=== PATIENT | male | born 1985 | race Caucasian/White ===

== ENCOUNTER 2022-01-29 13:27 | Outpatient (CLI) | payer MEDICARE, SELFPAY ==
--- NOTE | 2022-01-29 14:13 | XR_ITS ---
WS: [id number] Exam: XR lumbar spine min 4V [id number] Date/Time of Exam: 01/29/2022 2:13 PM Reason For Exam: M54.16 - Radiculopathy, lumbar region There is a pars interarticularis defect of L4 with grade 1 spondylolisthesis of L4 on L5. There is ap proximately 8 mm forward movement of L4. Degenerative disc thinning at L4-5. The remaining discs are preserved. Remaining posterior elements are intact. No acute fracture seen. XR/XR lumbar spine min 4V [id number] IMPRESSION: 1. Grade 1 spondylolisthesis of L4 on L5 secondary to L4 pars defect. 2. Early degenerative thinning of the L4-5 disc. 3. The remaining aspects of the lumbar spine are unremarkable.
== END 2022-01-29 13:28 | disposition home or self-care (01) ==
LOC: RAD 13:39
PROVIDERS: PCP Family Medicine; Visit Provider Anesthesiology Pain Medicine
DX: M54.16 Radiculopathy, lumbar region (principal); M43.16 Spondylolisthesis, lumbar region
CPT/HCPCS: 72110

== ENCOUNTER 2022-05-31 13:22 | Emergency (ER) | payer MEDICARE, SELFPAY ==
[2022-05-31] VITALS (11 sets, daily range): BP systolic 134–163; BP diastolic 80–107; PULSE 46–78; RESP 13–23; O2SAT 92–100
--- NOTE | 2022-05-31 13:23 | XRR_ITS ---
PROCEDURE INFORMATION: Exam: XR Chest Exam date and time: 05/31/2022 1:28 PM Age: 36 years old Clinical indication: Injury or trauma; Fall; Blunt trauma (contusions or hematomas); Additional info: Cp TECHNIQUE: Imaging protocol: Radiologic exam of the chest. Views: 1 view. COMPARISON: MR shoulder RT wo con* [id number] 01/23/2022 7:37 AM FINDINGS: Lungs: Lungs are clear. Pleural spaces: There is no pleural effusion or pneumothorax. Heart/Mediastinum: The cardiac silhouette is within normal limits of size given AP technique. Bones/joints: Bones are unremarkable. XR/XR chest 1V portable [id number] IMPRESSION: No acute findings.
--- NOTE | 2022-05-31 13:24 | ECG_ITS ---
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
--- NOTE | 2022-05-31 13:27 | CTR_ITS ---
PROCEDURE INFORMATION: Exam: CT Head Without Contrast Exam date and time: 05/31/2022 1:38 PM Age: 36 years old Clinical indication: Injury or trauma; Fall; Blunt trauma (contusions or hematomas) TECHNIQUE: Imaging protocol: Computed tomography of the head without contrast. Axial, coronal and sagittal reformatted images were created and reviewed. Radiation optimization: All CT scans at this facility use at least one of these dose optimization techniques: automated exposure control; mA and/or kV adjustment per patient size (includes targeted exams where dose is matched to clinical indication); or iterative reconstruction. REPORTING DATA: Count of CT and Cardiac NM exams in prior 12 months: This patient has received [address] and 0 known cardiac nuclear medicine studies in the 12 months prior to the current study. COMPARISON: No relevant prior studies available. RADIATION DOSE METRICS: Total DLP (mGy-cm): 1355.1 FINDINGS: Brain: No CT evidence of acute intracranial hemorrhage or acute territorial infarction. No significant mass effect or midline shift. Basal cisterns patent. Cerebral ventricles: Normal in size and configuration. Paranasal sinuses: Unremarkable. No fluid levels. Mastoid air cells: Minimal opacification of the mastoid air cells. Bones/joints: Mild ethmoid, maxillary and inferior frontal sinus sinus mucosal thickening. No air-fluid levels. Soft tissues: Grossly unremarkable. CT/CT head wo con* [id number] IMPRESSION: 1. No CT evidence of acute intracranial pathology. 2. Additional findings, as above.
--- NOTE | 2022-05-31 13:27 | CTR_ITS ---
PROCEDURE INFORMATION: Exam: CT Cervical Spine Without Contrast Exam date and time: 05/31/2022 1:38 PM Age: 36 years old Clinical indication: Injury or trauma; Fall; Blunt trauma; Injury date: 05/31/2022; Injury details: Syncopeal episode today TECHNIQUE: Imaging protocol: Computed tomography of the cervical spine without contrast. Axial, coronal and sagittal reformatted images were created and reviewed. Radiation optimization: All CT scans at this facility use at least one of these dose optimization techniques: automated exposure control; mA and/or kV adjustment per patient size (includes targeted exams where dose is matched to clinical indication); or iterative reconstruction. REPORTING DATA: Count of CT and Cardiac NM exams in prior 12 months: This patient has received [address] and 0 known cardiac nuclear medicine studies in the 12 months prior to the current study. COMPARISON: MR shoulder RT wo con* [id number] 01/23/2022 7:37 AM RADIATION DOSE METRICS: Total DLP (mGy-cm): 282.8 FINDINGS: Bones/joints: Straightening of the normal cervical lordosis. No CT evidence of acute fracture, dislocation or subluxation. Alignment anatomic. Minimal dextroscoliosis. Vertebral body heights maintained. Lungs: 5 mm pleural based right upper lobe nodular density, of doubtful clinical significance. Soft tissues: Grossly unremarkable. CT/CT cervical spin wo con* [id number] IMPRESSION: 1. No CT evidence of acute cervical spine traumatic injury. 2. Additional findings, as above.
--- NOTE | 2022-05-31 13:31 | W.ED.CHESTPA ---
HPI - Chest Pain General: Chief Complaint: Chest Pain Stated Complaint: CHEST PAIN Time Seen by Provider: 05/31/22 13:23 Source: patient and EMS Mode of arrival: EMS Limitations: no limitations History of Present Illness: 36-year-old male states that roughly 2 hours ago he started to feel anxious and was having chest pain he had hyperventilated and then had a syncopal event that was witnessed by family he does complain of some neck pain along with headache and he did hit his head he is in a c-collar currently is brought in by EMS states his symptoms of complete resolved he has no chest pain currently he feels much improved no vomiting no shortness of breath currently. Associated symptoms: Reports syncope; Deny abdominal pain, dyspnea, fever(s), nausea or vomiting Review of Systems Const: Denies: fever(s), chills, body aches or change in appetite Eyes: Denies: blurry vision or eye discomfort ENMT: Denies: throat pain or dental pain Card: Reports: chest pain and syncope Resp: Denies: dyspnea GI: Denies: abdominal pain, nausea, vomiting or diarrhea : Denies: dysuria Musc: Reports: neck pain Skin/Breast: Denies: rash Neuro: Reports: headache(s) Psych: Reports: anxiety Logan/Lymph: Denies: easy bruising All/Imm: Denies: urticaria PFSH ED PFSH: Medical History Lumbar disc disease with radiculopathy Social History Smoking and tobacco status: former smoker Quit status (tobacco): has quit using tobacco Household members: significant other Physical Exam Const: COMMON NORMALS: no acute distress, patient oriented x3 and healthy appearing HENMT: COMMON NORMALS: normocephalic; head/scalp not atraumatic (contusion to right side of head) HEAD & SCALP: normocephalic; not atraumatic (contusion to right side of head) Eye: COMMON NORMALS: Equal, round and reactive pupils present and EOMs intact bilaterally PUPIL: Yes Equal, round and reactive pupils present Neck/C-Spine: OTHER: in c collar Chest: COMMONS NORMALS: normal inspection of the chest and normal palpation of entire chest wall Resp: COMMON NORMALS: normal respiratory effort, No retractions, No use of accessory muscles and clear to auscultation bilaterally AUSCULTATION: clear to auscultation bilaterally Cardio: COMMON NORMALS: regular rate, regular rhythm and No murmurs present (Cardio) RATE: regular rate RHYTHM: regular rhythm GI: COMMON NORMALS: Normal to inspection, nondistended, normoactive bowel sounds present, Soft to palpation, non-tender and no masses PALPATION: Yes Soft to palpation Extremity: COMMON NORMALS: normal to inspection and full ROM Neuro: COMMON NORMALS: patient oriented x3, moves all extremities and no focal motor deficits Psych: COMMON NORMALS: mental status grossly normal, Normal thought process present and cooperative THOUGHT PROCESS: Normal thought process present Skin: COMMON NORMALS: no rashes or lesions noted and no wounds GENERAL SKIN EXAM: no rashes or lesions noted Course Vital Signs: Vital signs: Vital Signs Pulse Rate 58 L 05/31/22 13:29 Respiratory Rate 22 H 05/31/22 14:44 Blood Pressure 163/95 05/31/22 13:29 Pulse Oximetry 100 05/31/22 14:44 Oxygen Delivery Me thod 05/31/22 13:29 MDM - Chest Pain Medical Decision Making Patient presents here with chest pains atypical in nature he also has syncopal episode from what appears to be hyperventilation during a panic attack he feels improved here troponins and blood work are all normal he is to follow-up with his PCP and return if worsening he understands and agrees to plan. Lab Data 05/31/22 13:30 05/31/22 13:30 Radiology Impressions Chest X-Ray 05/31/22 13:23 IMPRESSION: No acute findings. Cervical Spine CT 05/31/22 13:27 IMPRESSION: 1. No CT evidence of acute cervical spine traumatic injury. 2. Additional findings, as above. Head CT 05/31/22 13:27 IMPRESSION: 1. No CT evidence of acute intracranial pathology. 2. Additional findings, as above. Laboratory Results WBC 16.2 10^3/uL (4.0-10.0) H 05/31/22 13:30 RBC 5.39 10^6/uL (4.1-5.3) H 05/31/22 13:30 Hgb 16.1 g/dL (11.7-16.6) 05/31/22 13:30 Hct 49.4 % (42.0-52.0) 05/31/22 13:30 MCV 91.7 fl (80-94) 05/31/22 13:30 MCH 29.9 pg (28.0-34.0) 05/31/22 13:30 MCHC 32.6 g/dL (30.0-36.0) 05/31/22 13:30 RDW 12.8 % (12.1-15.1) 05/31/22 13:30 Plt Count 276 10^3/cmm (130-400) 05/31/22 13:30 MPV 10.1 fL (7.4-10.4) 05/31/22 13:30 Neut % (Auto) 75.5 % 05/31/22 13:30 Lymph % (Auto) 17.9 % 05/31/22 13:30 [place] % (Auto) 3.9 % 05/31/22 13:30 Eos % (Auto) 1.7 % 05/31/22 13:30 Baso % (Auto) 0.6 % 05/31/22 13:30 Neut # (Auto) 12.25 10^3/uL (1.8-7.7) H 05/31/22 13:30 Lymph # (Auto) 2.9 10^3/uL (0.8-4.8) 05/31/22 13:30 [place] # (Auto) 0.6 10^3/uL (0.2-0.9) 05/31/22 13:30 Eos # (Auto) 0.3 10^3/uL (0.0-0.8) 05/31/22 13:30 Baso # (Auto) 0.1 10^3/uL (0.0-0.1) 05/31/22 13:30 Nucleated RBC % (auto) 0 % 05/31/22 13:30 Nucleated RBCs # 0.0 /100WBC 05/31/22 13:30 PT 12.80 SECONDS (12.1-14.9) 05/31/22 13:30 INR 0.94 (0.8-1.2) 05/31/22 13:30 Sodium 142 mmol/L (136-145) 05/31/22 13:30 Potassium 4.5 mmol/L (3.5-5.1) 05/31/22 13:30 Chloride 109 mmol/L (98-107) H 05/31/22 13:30 Carbon Dioxide 23 mmol/L (22-29) 05/31/22 13:30 Anion Gap 14.5 (5-19) 05/31/22 13:30 BUN 13 mg/dL (6-20) 05/31/22 13:30 Creatinine 1.0 mg/dL (0.7-1.2) 05/31/22 13:30 GFR Calculation 85.0 mL/min (90-130) L 05/31/22 13:30 Glucose 101 mg/dL (65-115) 05/31/22 13:30 Calculated Osmolality 294 mOsm/kg (285-295) 05/31/22 13:30 Calcium 12.4 mg/dL (8.5-10.5) H 05/31/22 13:30 Total Bilirubin 0.4 mg/dL (0.15-1.2) 05/31/22 13:30 AST 15 U/L (0-40) 05/31/22 13:30 ALT 24 U/L (0-41) 05/31/22 13:30 Alkaline Phosphatase 81 U/L (40-130) 05/31/22 13:30 Troponin T Baseline 6 ng/L (0-15) 05/31/22 13:30 Troponin T 120 Minute 6.00 ng/L (0-15) 05/31/22 15:20 Delta Troponin T 0 ABS# (0-10) 05/31/22 15:20 Total Protein 6.7 g/dL (6.6-8.7) 05/31/22 13:30 Albumin 4.2 g/dL (3.5-5.2) 05/31/22 13:30 Globulin 2.5 g/dL (1.3-4.6) 05/31/22 13:30 Lipase 30 U/L (13-60) 05/31/22 15:20 EKG Data EKG 1: I personally reviewed and interpreted this EKG as follows: EKG interpretation date: 05/31/22 EKG interpretation time: 13:34 Interpretation: sinus micheal hr [address] or t wave abnormalities qrs 93 qtc 364 EKG 2: I personally reviewed and interpreted this EKG as follows: EKG interpretation date: 05/31/22 EKG interpretation time: 14:50 Interpretation: sinus micheal hr [address] or t wave abnormalities qrs 89 qtc 379 Discharge Plan Discharge Patient Disposition: Home Clinical Impression: Chest pain, Syncope Condition: Stable Prescriptions: New Naprosyn 500 mg tablet 500 mg PO BID PRN (Reason: pain) Qty: 20 0RF No Action hydrocodone-acetaminophen 5-325 mg tablet 1 tab PO BID PRN (Reason: Pain) azithromycin 250 mg tablet 250 mg PO .TAPER Rx Instructions: 2 tablets day 1 then 1 tablet on days 2-5 prednisone 20 mg tablet 40 mg PO DAILY Discharge Orders: Discharge ED (Routine); Ordered 05/31/22 Ordered By: Carina De Leon Referrals: Jose Brown [Primary Care Provider] - 1-3 days Discharge Diet: Advance as tolerated Discharge Activity: Resume usual activity Patient Instructions: Chest Pain (ED), Syncope (ED) Stand Alone Forms: Work/School Release Coding Level of Care Code ED Hand I Cutter for Juan Jose Lima
[2022-05-31 13:47] LABS: Basophils # 0.1 10^3/uL (0.0-0.1); Basophils % 0.6 %; Eosinophils # 0.3 10^3/uL (0.0-0.8); Eosinophils % 1.7 %; Hematocrit 49.4 % (42.0-52.0); Hemoglobin 16.1 g/dL (11.7-16.6); Lymphocytes # 2.9 10^3/uL (0.8-4.8); Lymphocytes % 17.9 %; Mean Corpuscular HGB Conc 32.6 g/dL (30.0-36.0); Mean Corpuscular Hemoglobin 29.9 pg (28.0-34.0); Mean Corpuscular Volume 91.7 fl (80-94); Mean Platelet Volume 10.1 fL (7.4-10.4); Monocytes # 0.6 10^3/uL (0.2-0.9); Monocytes % 3.9 %; Neutrophils # 12.25 10^3/uL (1.8-7.7); Neutrophils % 75.5 %; Nucleated Red Blood Cells % 0 %; Platelet Count 276 10^3/cmm (130-400); Red Blood Count 5.39 10^6/uL (4.1-5.3); Red Cell Distribution Width 12.8 % (12.1-15.1); White Blood Count 16.2 10^3/uL (4.0-10.0)
[2022-05-31 13:59] LABS: INR 0.94 (0.8-1.2)
[2022-05-31 14:06] LABS: Alanine Aminotransferase 24 U/L (0-41); Albumin Level 4.2 g/dL (3.5-5.2); Alkaline Phosphatase 81 U/L (40-130); Anion Gap 14.5 (5-19); Aspartate Amino Transferase 15 U/L (0-40); Blood Urea Nitrogen 13 mg/dL (6-20); Calcium 12.4 mg/dL (8.5-10.5); Carbon Dioxide 23 mmol/L (22-29); Chloride 109 mmol/L (98-107); Creatinine Clr Calc Pharmacy 113.5628; Globulin 2.5 g/dL (1.3-4.6); Glucose 101 mg/dL (65-115); Osmolality Calculated 294 mOsm/kg (285-295); Potassium 4.5 mmol/L (3.5-5.1); Sodium 142 mmol/L (136-145); Total Bilirubin 0.4 mg/dL (0.15-1.2); Total Protein 6.7 g/dL (6.6-8.7)
[2022-05-31 14:07] LABS: Troponin(5th) Baseline 6 ng/L (0-15)
[2022-05-31] MEDS: ondansetron 2 mg/ML SDV 2 mL 4 MG IVP (14:44)
[2022-05-31] MEDS: morphine 4 mg/mL SDV 1 mL IVP (14:44)
--- NOTE | 2022-05-31 14:50 | ECG_ITS ---
[facility] Test Date: 2022-05-31 Pat Name: Charlie Hawkins Department: Room: Gender: Male Manager Of Pharmacy: : 1985 Requested By: Carina De Leon Order Number: [id number] Reading MD: PARAG CABRALES Measurements Intervals [place] Rate: 55 P: 54 AR: 173 QRS: 3 QRSD: 89 T: 8 QT: 390 QTc: 375 Interpretive Statements SINUS BRADYCARDIA WITH SINUS ARRHYTHMIA Compared to ECG 05/31/2022 13:34:31 No significant changes Electronically Signed On 06-01-2022 3:08:13 CDT by PARAG CABRALES [id number]
--- NOTE | 2022-05-31 14:54 | PC.NURSE ---
PT PLACED ON CONTINUOUS SPO2, NIBP, AND CM.
[2022-05-31 16:02] LABS: Troponin 5 2HR Delta 0 ABS# (0-10)
[2022-05-31 16:34] LABS: Lipase 30 U/L (13-60)
[2022-05-31] MEDS: HYDROcodone-acetaminophen 5-325 mg Tablet 1 TAB PO (16:43)
== END 2022-05-31 16:55 | disposition home or self-care (01) ==
PROVIDERS: Emergency Provider Emergency Medicine; PCP Family Medicine
DX: R07.9 Chest pain, unspecified (principal); R55 Syncope and collapse; Z87.891 Personal history of nicotine dependence
CPT/HCPCS: 36415; 70450; 71045; 72125; 80053; 83690; 84484; 85025; 85610; 93005; 96374; 96375; 99285; J2270; J2405

== ENCOUNTER 2022-07-17 11:35 | Outpatient (CLI) | payer MEDICARE, SELFPAY ==
[2022-07-17 11:50] VITALS: BMI 29.9
--- NOTE | 2022-07-17 11:54 | ECG_ITS ---
[facility] Test Date: 2022-07-17 Pat Name: Charlie Hawkins Department: Room: Gender: Male Siphoner: : 1985 Requested By: Jose Brown Order Number: [id number] Hale MD: Woodrow Machuca M.D. Interpretive Statements NAME OF STUDY: TREADMILL STRESS TEST INDICATION: [Chest Pain] EXERCISE DATA: The patient was exercised by Hero protocol. Baseline heart rate was 63 beats per minute. Baseline blood pressure was 128/70 millimeters of mercury. Target heart rate was 157 beats per minute. Maximum heart rate achieved was 156, which was 99% of the target heart rate. Maximum blood pressure was 183/116millimeters of mercury. Total exercise time was 9 minutes 30 seconds. Maximum METs achieved was 13.5. The reason for ending the test was completion of protocol. The patient complained of shortness of breath during the stress test, which then resolved at the end of the test. ELECTROCARDIOGRAM: BASELINE: Showed sinus rhythm, normal axis, no significant ST-T changes at the baseline noted. [] EXERCISE: At the peak exercise level, [] No significant ST-T changes suggestive of ischemia noted. [] RECOVERY: During the recovery period, heart rate dropped appropriately. No significant ST-T changes in the recovery suggestive of ischemia noted. [] CONCLUSION: 1. Exercise capacity excellent 2. Heart rate response was appropriate. Maximum heart rate was only 1 beat below target heart rate however patient has excellent exercise capacity. Slight reduction in sensitivity of the test because of heart rate. 3. Blood pressure response was appropriate. 4. Symptoms not suggestive of ischemia. 5. Overall stress test is negative for ischemia. Maximum heart rate achieved was 1 beat below target heart rate. This may reduce sensitivity of the test. Patient has excellent exercise capacity. Electronically Signed On 08-01-2022 21:46:23 CDT by Woodrow Machuca M.D. [id number]
[2022-07-17 13:05] VITALS: BP 152/88; PULSE 92
== END 2022-07-17 11:36 | disposition home or self-care (01) ==
LOC: CDL 11:36
PROVIDERS: PCP Family Medicine; Visit Provider Family Medicine
DX: R07.9 Chest pain, unspecified (principal); Z82.49 Family history of ischemic heart disease and other diseases of the circulatory system
CPT/HCPCS: 93017

== ENCOUNTER → 2022-07-22 15:20 | Outpatient (BNVA) | payer MEDICARE, SELFPAY | PROVIDERS: PCP Family Medicine; Referring Provider Nurse Practitioner Family; Visit Provider Internal Medicine | DX: E21.0 Primary hyperparathyroidism (principal); N20.0 Calculus of kidney; D72.820 Lymphocytosis (symptomatic); M51.16 Intervertebral disc disorders with radiculopathy, lumbar region; M47.816 Spondylosis without myelopathy or radiculopathy, lumbar region | CPT/HCPCS: 80053; 82310; 83970; 99204 ==

== ENCOUNTER → 2022-10-07 15:09 | Outpatient (BNVA) | payer MEDICARE, SELFPAY | PROVIDERS: PCP Family Medicine; Visit Provider Internal Medicine | DX: R07.9 Chest pain, unspecified (principal); E21.0 Primary hyperparathyroidism; I10 Essential (primary) hypertension; N20.0 Calculus of kidney; I21.9 Acute myocardial infarction, unspecified; Z87.891 Personal history of nicotine dependence; R00.1 Bradycardia, unspecified | CPT/HCPCS: 36415; 80048; 82310; 83970; 85025; 85610; 93005; 99204; 99215 ==

== ENCOUNTER 2022-10-08 10:00 | Outpatient (CLI) | payer MEDICARE, SELFPAY ==
--- NOTE | 2022-10-08 09:51 | NM_ITS ---
WS: [id number] EXAMINATION: NM parathyroid [id number] ORDER DATE: 10/08/2022 9:51 AM COMPARISON: CT cervical May 31, 2022 HISTORY: hyperparathyroid TECHNIQUE: Parathyroid scintigraphy with 19.4 mCi of technetium 99m administered. AP and oblique views obtained with and without chin and suprasternal notch markers. Initial and 2 hour delayed imagi ng acquired. FINDINGS: Multinodular LEFT inferior thyroid seen on the prior CT with calcifications. Associated nodular radio tracer uptake in the LEFT inferior thyroid today. Normal submandibular uptake. Normal thyroid washout on the delayed imaging. No evidence of retained radiotracer on the delayed imaging to indicate parathyroid adenoma. NM/NM parathyroid [id number] IMPRESSION: No evidence of parathyroid adenoma.
== END 2022-10-08 10:01 | disposition home or self-care (01) ==
PROVIDERS: PCP Family Medicine; Visit Provider Internal Medicine
DX: E21.0 Primary hyperparathyroidism (principal)
CPT/HCPCS: 78070; A9500

== ENCOUNTER 2022-10-21 09:07 | Outpatient (CLI) | payer MEDICARE, SELFPAY ==
[2022-10-21] VITALS (14 sets, daily range): BP systolic 115–135; BP diastolic 52–95; PULSE 40–96; RESP 12–18; TEMP 37; O2SAT 96–100; BMI 31.0
--- NOTE | 2022-10-21 09:00 | XACV_ITS ---
Ht: 173 cm Wt: 93 kg BSA: 2.13 m2 Gender: Male : 1985 Any Known Allergies: Other Exam Priority: Routine Procedure(s): Procedure Description: Diagnostic procedure Procedure Description: Left Heart Catheterization Procedure Description: Left ventriculography Procedure Description: Coronary Angiography Diagnostic Cath Status: Elective Diagnostic Findings * No significant disease noted in the Left Main, Left Anterior Descending, Right, or Circumflex coronary arteries. 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 * Coronary angiography shows right dominance. Conclusions 1. No significant disease noted in the Left Main, Left Anterior Descending, Right, or Circumflex coronary arteries. 2. Mid LAD bridge. 3. Normal left ventricular systolic function. Ejection fraction of 60%. Recommendations * Aggressive risk factor modification. * Beta wilver as tolerated. * Outpatient cardiology follow up in 4 weeks. Diagnostic RX Recommendation: medical therapy and/or counseling Ventriculography Ejection Fraction: 60.0 % Pressures Phase:Rest AO : 104 / 104 ( 89 ) @ 11:43:00 AM 118 / 92 ( 98 ) @ 11:46:00 AM 114 / 55 ( 81 ) @ 11:50:00 AM 114 / 55 ( 80 ) @ 11:50:00 AM LV : 142 / -16 / 11 @ 11:50:00 AM 133 / -34 / -7 @ 11:50:00 AM Valves Phase:DefaultPhase AV : 5.0 @ 11:12:25 AM AV Mean Gradient: 15.0 @ 11:12:25 AM 15.0 @ 11:12:25 AM Clinical Evaluation EBL: 5mL-10mL Procedural Details Pre-Procedure Time Out. Identified patient by full name and date of as verbalized by the patient/guarantor. Does the consent match the physician's order: Yes. Accurate & Complete Informed Consent: Yes. Inpatient/Outpatient History & Physical on Chart: Yes. If H&P is completed, is and addenduem needed: No; If yes, is the addendum complete: N/A. Visualize and Verify Site with Patient/Guarantor: N/A. Relevant Radiology Images available: No. Pre-op teaching completed and patient verbalized understanding. The risks, benefits, and alternatives of sedation and/or procedure were discussed by physician. The patient agrees to continue. Procedure started. [facility] Clinical Fraility Score: 2: Well. Art Psychotherapist Or Therapist Indications: Worsening Angina. Chest Pain Symptom Assessment: Typical Angina Symptoms. Cardiovascular Instability: No. Correct patient, site and procedure confirmed by cath team. PERRLA. Strong, equal hand strip machine tender bilaterally. Lungs clear x 5 lobes. IV Site on Arrival: 20 gauge in the right anticubital. IV Fluids: 0.9% NaCl at KVO. 0 mL infused prior to propagator laborer. Pre Procedural Pulses: bilateral dorsalis pedis was 3+. Pre Procedural Pulses: bilateral posterior tibial was 3+. Pre Procedural Pulses: bilateral radial was 3+. Oxygen started at 2liters/min via nasal canula. right groin was prepped with chloroprep then draped in the usual sterile fashion. right radial was prepped with chloroprep then draped in the usual sterile fashion. Baseline sample Acquired. HR: 47 BPM. Physician arrived. Equipment: 6F - Radial. Cardiac Cath Pack. ACIST Manifold Kit Model BT 2000. Heparinized Saline (2 units/mL), 1000 mL bag. Physician scrubbed in. Immediate Pre-Procedure Time Out. Correct Patient: Yes; Correct Procedure: Yes; Correct Site: Yes; Correct Patient Position: Yes; Correct Supplies: Yes; Dried Flammable Prep: Yes; Blood Products Available: N/A;. Lidocaine 1% infiltrated to the right radial. Arterial access obtained. Lidocaine 1% infiltrated to the right radial. Attempt to place 6 fr sheath in right radial artery. Unable to advance sheath into radial artery. Wire, needle, and sheath removed. Manual pressure was held as needed to stop the bleeding. TR band placed. Hemostasis obtained. Lidocaine 1% infiltrated to the right groin. Arterial access obtained with micropuncture set. Lidocaine 1% infiltrated to the right groin. A 5 moldovan JL4 catheter in over wire. Multiple views taken of left coronary artery. Catheter removed over the exchange wire. A 5 moldovan JR4 catheter in over wire. Multiple views taken of right coronary artery. Catheter out. EDP Sample taken: LV 142/-17,11; HR: 66 BPM; SpO2: 95%. LV gram performed in SOUZA @ 10 mL/second for a total of 30 mL. EDP Sample taken: LV 133/-35,-8; HR: 75 BPM; SpO2: 92%. Pullback taken: LV Off; AO 114/55(81); Mean: 15mmHg, Peak to Peak: 5mmHg, SEP: 55sec/min; HR: 68 BPM; SpO2: 93%. Catheter out. A Right femoral angiogram was performed to determine safe placement of closure device. Physician scrubbed out. Sheath(s) removed and manual pressure held until hemostasis was achieved. Sterile 4x4 and Op-site applied to the puncture site. No oozing or hematoma noted. Post sheath removal instructions were given and the patient verbalized understanding. A Manual Compression was successful obtaining hemostatsis at the Right Femoral artery insertion site. Post Procedure: Pulses reassessed and unchanged. PERRLA. Strong, equal hand strip machine tender bilaterally. No VTE prophylaxis required. Medication's Wasted: Lidocaine 1% = 1 mL. Medication's Wasted: Heparin = 1000 units. Medication's Wasted: Nitro = 50 mg. Total IV fluids: 36 mL. Contrast type used: Omnipaque 300 mgI/mL, 500 mL bottle. Post-op diagnosis: non obstructive CAD, LAD myocardial bridge. Complications: none. Estimated blood loss: 5mL-10mL. Responsiveness - Normal response to verbal stimuli; alert and oriented, PERRLA. Airway - Unaffected, no intervention required; spontaneous ventilation. Circulation: W/N/L, pulses unchanged. Nausea/Vomiting: No. Procedure completed. Patient transferred by bed to 1st floor. Vital chart was stopped. Access Site Site: Right Femoral artery Sheath Size: 6 Fr Hemostasis Method: Manual Compression Hemostasis Success: Successful Procedure Medications Start: 10:22 AM Stop: 10:22 AM Medication: Versed Amount: 1 mg Route: I.V. Start: 10: AM Stop: : AM Medication: Fentanyl Amount: 50 mcg Route: I.V. Start: 10: AM Stop: : AM Medication: Versed Amount: 1 mg Route: I.V. Start: 10: AM Stop: : AM Medication: Fentanyl Amount: 50 mcg Route: I.V. Start: 10: AM Stop: : AM Medication: Versed Amount: 1 mg Route: I.V. Start: 10:42 AM Stop: 10:42 AM Medication: Versed Amount: 1 mg Route: I.V. I, the attending physician, have reviewed and verified all procedure medications. Yes, all medications given per verbal order History/Risk Factors Hypertension: No Dyslipidemia: No Peripheral Arterial Disease (PAD): No Myocardial Infarction (KS): No Obesity: No Renal Disease: No Tobacco Use: Former Prior Interventions PCI: No CABG: No Valve Surgery: No Report Signatures Finalized by Woodrow Machuca MD on 10/21/2022 11:37 AM
[2022-10-21] MEDS: aspirin 325 mg Tablet PO (09:49)
[2022-10-21] MEDS: diphenhydrAMINE 50 mg Capsule PO (09:49)
--- NOTE | 2022-10-21 10:20 | P.HPUD_ITS ---
Surgery/Procedure H&P Update DATE OF PROCEDURE: October 21, 2022 DATE H&P PERFORMED: 10/07/22 H&P UPDATE INFORMATION: I have reviewed H&P completed within last 30 days, I have examined patient prior to procedure and No changes to prior documentation PREOP DIAGNOSIS: Worsening angina PRIMARY INDICATION FOR PROCEDURE: Worsening angina PLANNED PROCEDURE: Operation Date: 10/21/22 10:00 Proposed Procedures p [facility] 10109,R94.39(Not Applicable) - Woodrow Machuca M.D Possible percutaneous coronary intervention PATIENT REASSESSED PRIOR TO SEDATION, WITH NO CHANGE NOTED: Yes PHYSICAL EXAM: alert, oriented x 3, clear to auscultation bilaterally and regular rate & rhythm AIRWAY EVAL/ANESTHESIA PLAN: normal airway, ASA III, Local Anesthesia, Risks, benefits & alternatives of sedation and/or procedure discussed and Patient agrees to continue as planned ADDITIONAL INFORMATION: Moderate sedation
[2022-10-21] MEDS: fentaNYL 50 mcg/mL INJ 2mL 12.5 MCG IVP (13:59)
[2022-10-21] MEDS: nitroglycerin 0.4 mg sublingual Tablet (16:06)
== END 2022-10-21 17:02 | disposition home or self-care (01) ==
LOC: CCL 09:07 → CSU 11:57
PROVIDERS: PCP Family Medicine; Visit Provider Internal Medicine
DX: I20.9 Angina pectoris, unspecified (principal); R94.39 Abnormal result of other cardiovascular function study; Z87.891 Personal history of nicotine dependence
CPT/HCPCS: 36415; 93458; 96361; 96365; 99152; 99153; C1769; C1887; C1894; J1644; J2250; J3010; J3490; J7030; Q0163; Q9967

== ENCOUNTER 2022-10-31 15:24 | Emergency (ER) | payer MEDICARE, SELFPAY ==
[2022-10-31] VITALS (11 sets, daily range): BP systolic 138–175; BP diastolic 60–91; PULSE 42–71; RESP 11–17; O2SAT 96–99
--- NOTE | 2022-10-31 15:30 | XRR_ITS ---
PROCEDURE INFORMATION: Exam: XR Chest Exam date and time: 10/31/2022 3:39 PM Age: 37 years old Clinical indication: Pain; Chest pressure; Additional info: Chest pain TECHNIQUE: Imaging protocol: Radiologic exam of the chest. Views: 1 view. COMPARISON: CR XR chest 1V portable [id number] 05/31/2022 1:28 PM FINDINGS: Lungs: Unremarkable. No consolidation. Pleural spaces: Unremarkable. No pleural effusion. No pneumothorax. Heart/Mediastinum: Unremarkable. No cardiomegaly. Bones/joints: Unremarkable. XR/XR chest 1V portable [id number] IMPRESSION: No acute findings.
--- NOTE | 2022-10-31 15:32 | ECG_ITS ---
[facility] Test Date: 2022-10-31 Pat Name: Charlie Hawkins Department: Room: Gender: Male Med Care Manager: : 1985 Requested By: Cristian Dooley Order Number: [id number] Alexia MD: Jessica Crawford M.D. Measurements Intervals [place] Rate: 53 P: 55 [place]: 151 QRS: 4 QRSD: 91 T: 71 QT: 382 QTc: 361 Interpretive Statements SINUS BRADYCARDIA NONSPECIFIC T-WAVE ABNORMALITY Compared to ECG 10/07/2022 15:18:41 T-wave abnormality now present Electronically Signed On 10-31-2022 23:25:46 CDT by Jessica Crawford M.D. [id number]
--- NOTE | 2022-10-31 15:35 | W.ED.CHESTPA ---
Documented by User: Cristian Dooley 10/31/22 17:41 HPI - Chest Pain General: Chief Complaint: Chest Pain Stated Complaint: CHEST PAIN Time Seen by Provider: 10/31/22 15:25 History of Present Illness: 37-year-old male presents emergency department chief complaint of having midsternal chest pain and palpitations that started prior to arrival patient presents from the local senior care apparently the patient recently had a cardiac catheterization at our facility a couple of days ago which she was subsequently discharged back to senior care patient reports he had a heart attack at that time however all they found was a valve issue but no actual stenting or additional intervention was needed during the angiogram. Patient presents as he developed shortness of breath palpitations and reported chest pain just prior to arrival patient reports he did not provide anything for this prior to EMS arrival EMS provided him aspirin nitro. Patient presents to the ER for further assessment and management. Associated symptoms: Reports dyspnea and palpitations; Deny abdominal pain, fever(s), nausea or vomiting Review of Systems General: Reports: 10 or more systems reviewed and unremarkable except in HPI and below Const: Denies: fever(s), chills, fatigue or malaise Eyes: Denies: change in vision or blurry vision Card: Reports: chest pain and palpitations Resp: Reports: dyspnea; Denies: productive cough GI: Denies: abdominal pain, nausea or vomiting : Denies: flank pain Musc: Denies: extremity pain or extremity swelling Skin/Breast: Denies: rash or pruritus Neuro: Denies: headache(s) Psych: Denies: anxiety or depression Logan/Lymph: Denies: easy bleeding All/Imm: Denies: urticaria, throat swelling or facial swelling [facility] ED PFSH: Medical History Lumbar disc disease with radiculopathy Social History Smoking and tobacco status: former smoker Quit status (tobacco): has quit using tobacco Household members: significant other Physical Exam Const: COMMON NORMALS: patient oriented x3 and healthy appearing; apparent distress (Patient appears very anxious on exam appearing in acute distress currently ) HENMT: COMMON NORMALS: normocephalic and atraumatic HEAD & SCALP: normocephalic and atraumatic Eye: COMMON NORMALS: Equal, round and reactive pupils present and EOMs intact bilaterally PUPIL: Yes Equal, round and reactive pupils present Neck/C-Spine: COMMON NORMALS: full ROM, supple and no JVD Lymph: LYMPHATIC: no lymphadenopathy noted Chest: COMMONS NORMALS: normal inspection of the chest and normal palpation of entire chest wall Resp: COMMON NORMALS: normal respiratory effort (Hyperventilating on exam equal breath sounds appreciate bilaterally), No retractions and clear to auscultation bilaterally EFFORT & INSPECTION: Yes able to speak in complete sentences and Yes symmetric chest movement AUSCULTATION: clear to auscultation bilaterally Cardio: COMMON NORMALS: no JVD, regular rate and regular rhythm RATE: regular rate RHYTHM: regular rhythm OTHER: Regular rate and rhythm S1-S2 no murmurs appreciated GI: COMMON NORMALS: Normal to inspection, nondistended, normoactive bowel sounds present, Soft to palpation and non-tender INSPECTION: Yes normal to inspection PALPATION: Yes Soft to palpation : COMMON NORMALS: Yes no CVA tenderness BLADDER/KIDNEY EXAM: Yes no CVA tenderness Back/Pelvis: COMMON NORMALS: no CVA tenderness Extremity: COMMON NORMALS: normal to inspection and full ROM Neuro: COMMON NORMALS: patient oriented x3, CN's II-XII intact bilaterally, moves all extremities and no focal motor deficits Psych: COMMON NORMALS: mental status grossly normal, Normal thought process present, cooperative and normal affect THOUGHT PROCESS: Normal thought process present Skin: COMMON NORMALS: no rashes or lesions noted GENERAL SKIN EXAM: no rashes or lesions noted Course Vital Signs: Vital signs: Vital Signs Pulse Rate 52 L 10/31/22 19:56 Respiratory Rate 16 10/31/22 19:56 Blood Pressure 150/86 10/31/22 19:56 Pulse Oximetry 97 10/31/22 19:56 Oxygen Delivery Me thod Room Air 10/31/22 15:26 MDM - Chest Pain Medical Decision Making Due to patient's symptoms and condition will undergo a cardiac work-up and IV established nitro will be provided for pain control EKG appears unremarkable just revealing a nonspecific T wave abnormality with sinus bradycardia rate of 53 with no STEMI appreciated we will continue to follow and further investigate the patient's previous work-up recently. Discussed the patient's case with Dr. Bejarano repair manager that independently assessed patient's cardiac cath reporting patient is a clean cath at this time recommends as long as patient's cardiac troponins repeat are negative the patient can be successfully discharged home. Patient does remain in sinus bradycardia which appears to be possibly medication induced currently is chest pain-free will be providing the patient a single dose of glucagon as his heart rate lowest is gone and 39 bpm. We will continue to follow anticipate discharge home pending 2-hour troponin. This patient was signed out to Dr. Norman at 1800 anticipate discharge home Pending cardiac second troponin results. Lab Data 10/31/22 15:25 10/31/22 15:25 Radiology Impressions Chest X-Ray 10/31/22 15:30 IMPRESSION: No acute findings. Laboratory Results WBC 17.8 10^3/uL (4.0-10.0) H 10/31/22 15:25 RBC 6.21 10^6/uL (4.1-5.3) H 10/31/22 15:25 Hgb 19.2 g/dL (11.7-16.6) H 10/31/22 15:25 Hct 55.6 % (42.0-52.0) H 10/31/22 15:25 MCV 89.5 fl (80-94) 10/31/22 15:25 MCH 30.9 pg (28.0-34.0) 10/31/22 15:25 MCHC 34.5 g/dL (30.0-36.0) 10/31/22 15:25 RDW 12.5 % (12.1-15.1) 10/31/22 15:25 Plt Count 303 10^3/cmm (130-400) 10/31/22 15:25 MPV 10.8 fL (7.4-10.4) H 10/31/22 15:25 Neut % (Auto) 77.5 % 10/31/22 15:25 Lymph % (Auto) 16.6 % 10/31/22 15:25 Gonzales % (Auto) 4.6 % 10/31/22 15:25 Eos % (Auto) 0.6 % 10/31/22 15:25 Baso % (Auto) 0.4 % 10/31/22 15:25 Neut # (Auto) 13.81 10^3/uL (1.8-7.7) H 10/31/22 15:25 Lymph # (Auto) 3.0 10^3/uL (0.8-4.8) 10/31/22 15:25 Gonzales # (Auto) 0.8 10^3/uL (0.2-0.9) 10/31/22 15:25 Eos # (Auto) 0.1 10^3/uL (0.0-0.8) 10/31/22 15:25 Baso # (Auto) 0.1 10^3/uL (0.0-0.1) 10/31/22 15:25 Nucleated RBC % (auto) 0 % 10/31/22 15:25 Nucleated RBCs # 0.0 /100WBC 10/31/22 15:25 PT 12.70 SECONDS (12.1-14.9) 10/31/22 15:25 INR 0.93 (0.8-1.2) 10/31/22 15:25 APTT 28.9 SECONDS (23.9-36.7) 10/31/22 15:25 Sodium 139 mmol/L (136-145) 10/31/22 15:25 Potassium 4.6 mmol/L (3.5-5.1) 10/31/22 15:25 Chloride 102 mmol/L (98-107) 10/31/22 15:25 Carbon Dioxide 24 mmol/L (22-29) 10/31/22 15:25 Anion Gap 17.6 (5-19) 10/31/22 15:25 BUN 16 mg/dL (6-20) 10/31/22 15:25 Creatinine 1.2 mg/dL (0.7-1.2) 10/31/22 15:25 GFR Calculation 68.5 mL/min (90-130) L 10/31/22 15:25 Glucose 70 mg/dL (65-115) 10/31/22 15:25 Calculated Osmolality 288 mOsm/kg (285-295) 10/31/22 15:25 Calcium 13.6 mg/dL (8.5-10.5) H* 10/31/22 17:07 Total Bilirubin 0.8 mg/dL (0.15-1.2) 10/31/22 15:25 AST 18 U/L (0-40) 10/31/22 15:25 ALT 33 U/L (0-41) 10/31/22 15:25 Alkaline Phosphatase 92 U/L (40-130) 10/31/22 15:25 Troponin T Baseline 6 ng/L (0-15) 10/31/22 15:25 Troponin T 120 Minute 6.14 ng/L (0-15) 10/31/22 17:07 Delta Troponin T 0.14 ABS# (0-10) 10/31/22 17:07 NT-Pro-B Natriuret Pep 36 pg/mL (0-125) 10/31/22 15:25 Total Protein 7.6 g/dL (6.6-8.7) 10/31/22 15:25 Albumin 5.1 g/dL (3.5-5.2) 10/31/22 15:25 Globulin 2.5 g/dL (1.3-4.6) 10/31/22 15:25 Lipase 39 U/L (13-60) 10/31/22 15:25 Urine Color Dark yellow (Yellow) 10/31/22 16:53 Urine Appearance Clear (CLEAR) 10/31/22 16:53 Urine pH 6.5 (5-7) 10/31/22 16:53 Ur Specific [place] 1.015 (1.005-1.030) 10/31/22 16:53 Urine Protein Neg (Negative) 10/31/22 16:53 Urine Glucose (UA) Norm (Normal) 10/31/22 16:53 Urine Ketones 1+ (Negative) H 10/31/22 16:53 Urine Blood Neg (Negative) 10/31/22 16:53 Urine Nitrate Negative (Negative) 10/31/22 16:53 Urine Bilirubin Neg (Negative) 10/31/22 16:53 Urine Urobilinogen 1 mg/dL (Negative) H 10/31/22 16:53 Ur Leukocyte Esterase Negative (Negative) 10/31/22 16:53 Urine Opiates Screen Negative ng/mL (Negative) 10/31/22 16:53 Ur Barbiturates Screen Negative ng/mL (Negative) 10/31/22 16:53 Ur Phencyclidine Scrn Negative ng/mL (Negative) 10/31/22 16:53 Ur Amphetamines Screen Negative ng/mL (Negative) 10/31/22 16:53 U Benzodiazepines Scrn Negative ng/mL (Negative) 10/31/22 16:53 Urine Cocaine Screen Negative ng/mL (Negative) 10/31/22 16:53 U Marijuana (THC) Screen Positive ng/mL (Negative) H 10/31/22 16:53 Discharge Plan Discharge Patient Disposition: Home Clinical Impression: Chest pain, atypical, Bradycardia Condition: Stable Prescriptions: Discontinued metoprolol tartrate 25 mg tablet 12.5 mg PO BID Qty: 60 1RF No Action nitroglycerin 0.4 mg tablet, sublingual 0.4 mg sublingual Q5M PRN (Reason: chest pain) Qty: 30 0RF Rx Instructions: do not exceed 3 doses per episode cinacalcet 30 mg tablet 30 mg PO DAILY Qty: 90 0RF Rx Instructions: (pt states not started [facility] naproxen [Naprosyn] 500 mg tablet 500 mg PO BID PRN (Reason: pain) Qty: 20 0RF hydrocodone-acetaminophen 7.5-325 mg tablet 1 tab PO QID PRN (Reason: Pain) Discharge Orders: Discharge ED (Routine); Ordered 10/31/22 Ordered By: Ezequiel Norman Referrals: Woodrow Machuca M.D [Physician] - 4-7 days Jose Brown [Primary Care Provider] - Patient Instructions: Chest Pain (ED), Chest Pain (DC), Opioid Safety, Pain Management Activity Restrictions/Additional Instructions: Please further follow-up with your primary care doctor in 2 to 3 days please continue take your medications as prescribed, with the exception of metoprolol. Consider stopping this medication, as your heart rate was too low in the emergency department. And please return them in the interim if any of your symptoms persist or worsen. Follow-up with your chief operator lock tender as well. Coding Level of Care Code ED Director Of Partner Marketing for [facility] Fwd Documented by User: Ezequiel Norman, 11/01/22 00:15 HPI - Chest Pain General: Chief Complaint: Chest Pain Stated Complaint: CHEST PAIN Time Seen by Provider: 10/31/22 15:25 PFSH ED PFSH: Medical History Lumbar disc disease with radiculopathy Social History Smoking and tobacco status: former smoker Quit status (tobacco): has quit using tobacco Household members: significant other Course Vital Signs: Vital signs: Vital Signs Pulse Rate 52 L 10/31/22 19:56 Respiratory Rate 16 10/31/22 19:56 Blood Pressure 150/86 10/31/22 19:56 Pulse Oximetry 97 10/31/22 19:56 Oxygen Delivery Me thod Room Air 10/31/22 15:26 MDM - Chest Pain Medical Decision Making Due to patient's symptoms and condition will undergo a cardiac work-up and IV established nitro will be provided for pain control EKG appears unremarkable just revealing a nonspecific T wave abnormality with sinus bradycardia rate of 53 with no STEMI appreciated we will continue to follow and further investigate the patient's previous work-up recently. Discussed the patient's case with Dr. Bejarano repair manager that independently assessed patient's cardiac cath reporting patient is a clean cath at this time recommends as long as patient's cardiac troponins repeat are negative the patient can be successfully discharged home. Patient does remain in sinus bradycardia which appears to be possibly medication induced currently is chest pain-free will be providing the patient a single dose of glucagon as his heart rate lowest is gone and 39 bpm. We will continue to follow anticipate discharge home pending 2-hour troponin. This patient was signed out to Dr. Norman at 1800 anticipate discharge home Pending cardiac second troponin results. Received in checkout from Dr. Raygoza. He requested we hold this patient to see if his heart rate came up. It certainly has after glucagon. Current heart rate is 79. It is sinus. Saturations 97% blood pressure 147/90. This patient will be allowed discharge given the above findings. His second troponin remains normal. Lab Data 10/31/22 15:25 10/31/22 15:25 Radiology Impressions Chest X-Ray 10/31/22 15:30 IMPRESSION: No acute findings. Laboratory Results WBC 17.8 10^3/uL (4.0-10.0) H 10/31/22 15:25 RBC 6.21 10^6/uL (4.1-5.3) H 10/31/22 15:25 Hgb 19.2 g/dL (11.7-16.6) H 10/31/22 15:25 Hct 55.6 % (42.0-52.0) H 10/31/22 15:25 MCV 89.5 fl (80-94) 10/31/22 15:25 MCH 30.9 pg (28.0-34.0) 10/31/22 15:25 MCHC 34.5 g/dL (30.0-36.0) 10/31/22 15:25 RDW 12.5 % (12.1-15.1) 10/31/22 15:25 Plt Count 303 10^3/cmm (130-400) 10/31/22 15:25 MPV 10.8 fL (7.4-10.4) H 10/31/22 15:25 Neut % (Auto) 77.5 % 10/31/22 15:25 Lymph % (Auto) 16.6 % 10/31/22 15:25 Gonzales % (Auto) 4.6 % 10/31/22 15:25 Eos % (Auto) 0.6 % 10/31/22 15:25 Baso % (Auto) 0.4 % 10/31/22 15:25 Neut # (Auto) 13.81 10^3/uL (1.8-7.7) H 10/31/22 15:25 Lymph # (Auto) 3.0 10^3/uL (0.8-4.8) 10/31/22 15:25 Gonzales # (Auto) 0.8 10^3/uL (0.2-0.9) 10/31/22 15:25 Eos # (Auto) 0.1 10^3/uL (0.0-0.8) 10/31/22 15:25 Baso # (Auto) 0.1 10^3/uL (0.0-0.1) 10/31/22 15:25 Nucleated RBC % (auto) 0 % 10/31/22 15:25 Nucleated RBCs # 0.0 /100WBC 10/31/22 15:25 PT 12.70 SECONDS (12.1-14.9) 10/31/22 15:25 INR 0.93 (0.8-1.2) 10/31/22 15:25 APTT 28.9 SECONDS (23.9-36.7) 10/31/22 15:25 Sodium 139 mmol/L (136-145) 10/31/22 15:25 Potassium 4.6 mmol/L (3.5-5.1) 10/31/22 15:25 Chloride 102 mmol/L (98-107) 10/31/22 15:25 Carbon Dioxide 24 mmol/L (22-29) 10/31/22 15:25 Anion Gap 17.6 (5-19) 10/31/22 15:25 BUN 16 mg/dL (6-20) 10/31/22 15:25 Creatinine 1.2 mg/dL (0.7-1.2) 10/31/22 15:25 GFR Calculation 68.5 mL/min (90-130) L 10/31/22 15:25 Glucose 70 mg/dL (65-115) 10/31/22 15:25 Calculated Osmolality 288 mOsm/kg (285-295) 10/31/22 15:25 Calcium 13.6 mg/dL (8.5-10.5) H* 10/31/22 17:07 Total Bilirubin 0.8 mg/dL (0.15-1.2) 10/31/22 15:25 AST 18 U/L (0-40) 10/31/22 15:25 ALT 33 U/L (0-41) 10/31/22 15:25 Alkaline Phosphatase 92 U/L (40-130) 10/31/22 15:25 Troponin T Baseline 6 ng/L (0-15) 10/31/22 15:25 Troponin T 120 Minute 6.14 ng/L (0-15) 10/31/22 17:07 Delta Troponin T 0.14 ABS# (0-10) 10/31/22 17:07 NT-Pro-B Natriuret Pep 36 pg/mL (0-125) 10/31/22 15:25 Total Protein 7.6 g/dL (6.6-8.7) 10/31/22 15:25 Albumin 5.1 g/dL (3.5-5.2) 10/31/22 15:25 Globulin 2.5 g/dL (1.3-4.6) 10/31/22 15:25 Lipase 39 U/L (13-60) 10/31/22 15:25 Urine Color Dark yellow (Yellow) 10/31/22 16:53 Urine Appearance Clear (CLEAR) 10/31/22 16:53 Urine pH 6.5 (5-7) 10/31/22 16:53 Ur Specific [place] 1.015 (1.005-1.030) 10/31/22 16:53 Urine Protein Neg (Negative) 10/31/22 16:53 Urine Glucose (UA) Norm (Normal) 10/31/22 16:53 Urine Ketones 1+ (Negative) H 10/31/22 16:53 Urine Blood Neg (Negative) 10/31/22 16:53 Urine Nitrate Negative (Negative) 10/31/22 16:53 Urine Bilirubin Neg (Negative) 10/31/22 16:53 Urine Urobilinogen 1 mg/dL (Negative) H 10/31/22 16:53 Ur Leukocyte Esterase Negative (Negative) 10/31/22 16:53 Urine Opiates Screen Negative ng/mL (Negative) 10/31/22 16:53 Ur Barbiturates Screen Negative ng/mL (Negative) 10/31/22 16:53 Ur Phencyclidine Scrn Negative ng/mL (Negative) 10/31/22 16:53 Ur Amphetamines Screen Negative ng/mL (Negative) 10/31/22 16:53 U Benzodiazepines Scrn Negative ng/mL (Negative) 10/31/22 16:53 Urine Cocaine Screen Negative ng/mL (Negative) 10/31/22 16:53 U Marijuana (THC) Screen Positive ng/mL (Negative) H 10/31/22 16:53 Discharge Plan Discharge Patient Disposition: Home Clinical Impression: Chest pain, atypical, Bradycardia Condition: Stable Prescriptions: Discontinued metoprolol tartrate 25 mg tablet 12.5 mg PO BID Qty: 60 1RF No Action nitroglycerin 0.4 mg tablet, sublingual 0.4 mg sublingual Q5M PRN (Reason: chest pain) Qty: 30 0RF Rx Instructions: do not exceed 3 doses per episode cinacalcet 30 mg tablet 30 mg PO DAILY Qty: 90 0RF Rx Instructions: (pt states not started states [facility]) naproxen [Naprosyn] 500 mg tablet 500 mg PO BID PRN (Reason: pain) Qty: 20 0RF hydrocodone-acetaminophen 7.5-325 mg tablet 1 tab PO QID PRN (Reason: Pain) Discharge Orders: Discharge ED (Routine); Ordered 10/31/22 Ordered By: Ezequiel Norman Referrals: Woodrow Machuca M.D [Physician] - 4-7 days Jose Brown [Primary Care Provider] - Patient Instructions: Chest Pain (ED), Chest Pain (DC), Opioid Safety, Pain Management Activity Restrictions/Additional Instructions: Please further follow-up with your primary care doctor in 2 to 3 days please continue take your medications as prescribed, with the exception of metoprolol. Consider stopping this medication, as your heart rate was too low in the emergency department. And please return them in the interim if any of your symptoms persist or worsen. Follow-up with your chief operator lock tender as well. Coding Level of Care Code ED Director Of Partner Marketing for Juan Jose Lima
[2022-10-31 15:43] LABS: Basophils # 0.1 10^3/uL (0.0-0.1); Basophils % 0.4 %; Eosinophils # 0.1 10^3/uL (0.0-0.8); Eosinophils % 0.6 %; Hematocrit 55.6 % (42.0-52.0); Hemoglobin 19.2 g/dL (11.7-16.6); Lymphocytes % 16.6 %; Mean Corpuscular HGB Conc 34.5 g/dL (30.0-36.0); Mean Corpuscular Hemoglobin 30.9 pg (28.0-34.0); Mean Corpuscular Volume 89.5 fl (80-94); Mean Platelet Volume 10.8 fL (7.4-10.4); Monocytes # 0.8 10^3/uL (0.2-0.9); Monocytes % 4.6 %; Neutrophils # 13.81 10^3/uL (1.8-7.7); Neutrophils % 77.5 %; Nucleated Red Blood Cells % 0 %; Platelet Count 303 10^3/cmm (130-400); Red Blood Count 6.21 10^6/uL (4.1-5.3); Red Cell Distribution Width 12.5 % (12.1-15.1); White Blood Count 17.8 10^3/uL (4.0-10.0)
[2022-10-31 15:52] LABS: INR 0.93 (0.8-1.2); Partial Thromboplastin Time 28.9 SECONDS (23.9-36.7)
[2022-10-31 16:02] LABS: Troponin(5th) Baseline 6 ng/L (0-15)
--- NOTE | 2022-10-31 16:03 | PC.PHAR ---
pt states he has been in care home for 2 days pt states he hasnt had his meds for 2 days-pt states [facility] and [facility] one tab qid prn ext shows last filled 08/02/22 30d/s 1 tab bid prn faxed [facility] but [facility] closed on the weekends-pt states not started taking cinacalcet 30mg daily as of 10/31/22 states never got from the [facility] rx written 10/08/22-
[2022-10-31 16:14] LABS: Alanine Aminotransferase 33 U/L (0-41); Albumin Level 5.1 g/dL (3.5-5.2); Alkaline Phosphatase 92 U/L (40-130); Anion Gap 17.6 (5-19); Aspartate Amino Transferase 18 U/L (0-40); Blood Urea Nitrogen 16 mg/dL (6-20); Carbon Dioxide 24 mmol/L (22-29); Chloride 102 mmol/L (98-107); Globulin 2.5 g/dL (1.3-4.6); Glomerular Filtration Rate 68.5 mL/min (90-130); Glucose 70 mg/dL (65-115); Lipase 39 U/L (13-60); NT Pro B Type Natriuretic Pept 36 pg/mL (0-125); Osmolality Calculated 288 mOsm/kg (285-295); Potassium 4.6 mmol/L (3.5-5.1); Sodium 139 mmol/L (136-145); Total Bilirubin 0.8 mg/dL (0.15-1.2); Total Protein 7.6 g/dL (6.6-8.7)
[2022-10-31] MEDS: ondansetron 2 mg/ML SDV 2 mL 4 MG IVP (16:23)
[2022-10-31] MEDS: sodium chloride 0.9% 500 ML 999 ML IV (16:23)
[2022-10-31] MEDS: ketorolac 60 mg/2 mL INJ 30 MG IVP (17:18)
[2022-10-31 17:20] LABS: Add Urine Microscopic? NO; Charge for UA Resulting for Rev
[2022-10-31 17:29] LABS: Bilirubin Urine Neg (Negative); Blood Urine Neg (Negative); Glucose Urine UA Norm (Normal); Ketones Urine 1+ (Negative); Leukocyte Esterase Urine Negative (Negative); Nitrate Urine Negative (Negative); Protein Urine Neg (Negative); Specific Gravity, Urine 1.015 (1.005-1.030); Urine Appearance Clear (CLEAR); Urine Color Dark Yellow (Yellow); Urobilinogen Urine 1 mg/dL (Negative); pH Urine 6.5 (5-7)
--- NOTE | 2022-10-31 17:32 | ECG_ITS ---
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 Measurements Intervals [place] Rate: 39 P: 47 CA: 175 QRS: -7 QRSD: 102 T: 31 QT: 405 QTc: 330 Interpretive Statements SINUS BRADYCARDIA CRITICAL TEST RESULT Compared to ECG 10/31/2022 15:29:19 T-wave abnormality no longer present Electronically Signed On 10-31-2022 23:26:30 CDT by Jessica Crawford M.D. [id number]
[2022-10-31 17:34] LABS: Amphetamines Screen Urine Negative (Negative); Barbiturates Screen Urine Negative (Negative); Benzodiazepines Screen Urine Negative (Negative); Cocaine Screen Urine Negative (Negative); Opiate Screen Urine Negative (Negative); PCP Screen Urine Negative (Negative); THC Screen Urine Positive (Negative)
[2022-10-31] MEDS: glucagon 1 mg/mL KIT 1 mL IV (17:56)
[2022-10-31 17:58] LABS: Calcium 13.6 mg/dL (8.5-10.5)
[2022-10-31 18:35] LABS: Troponin 5 2HR Delta 0.14 ABS# (0-10)
[2022-10-31 18:36] LABS: Troponin 5 2HR 6.14 ng/L (0-15)
--- NOTE | 2022-11-02 11:04 | DCPLANNER ---
Addendum entered by Chloé Mckeon 11/13/22 10:35: Patient did attend this appointment with heart care Addendum entered by Chloé Mckeon 11/11/22 14:09: Patient has a follow up appointment scheduled for , November 12, 2022 at 9:00 with RODRIGUEZ Montenegro at [facility]. Original Note: rfid manager had message to schedule a follow up appointment for patient with cardiology. rfid manager sent patients information to the front office staff at [facility]. Patients information will be printed and reviewed, clinic will call patient with appointment information.
== END 2022-10-31 19:48 | disposition home or self-care (01) ==
PROVIDERS: Emergency Medicine; Emergency Provider Emergency Medicine; PCP Family Medicine
DX: R07.89 Other chest pain (principal); R00.1 Bradycardia, unspecified; Z87.891 Personal history of nicotine dependence
CPT/HCPCS: 71045; 80053; 80306; 81003; 82310; 83690; 83880; 84484; 85025; 85610; 85730; 93005; 96361; 96374; 96375; 99285; J1610; J1885; J2405; J7040

== ENCOUNTER 2022-11-02 22:18 | Emergency (ER) | payer MEDICARE, SELFPAY ==
--- NOTE | 2022-11-02 22:24 | XRR_ITS ---
PROCEDURE INFORMATION: Exam: XR Chest Exam date and time: 11/02/2022 10:48 PM Age: 37 years old Clinical indication: Pain; Chest pressure; Additional info: Cp TECHNIQUE: Imaging protocol: Radiologic exam of the chest. Views: 1 view. COMPARISON: CR (CHEST, ) 10/31/2022 3:39 PM FINDINGS: Lungs: Unremarkable. No consolidation. Pleural spaces: Unremarkable. No pleural effusion. No pneumothorax. Heart/Mediastinum: Unremarkable. No cardiomegaly. Bones/joints: Unremarkable. XR/XR chest 1V portable [id number] IMPRESSION: No acute findings.
[2022-11-02 22:27] VITALS: BP 156/98; PULSE 40; RESP 16; O2SAT 97; BMI 30.1
--- NOTE | 2022-11-02 22:28 | ECG_ITS ---
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 Measurements Intervals [place] Rate: 41 P: 48 IN: 185 QRS: 4 QRSD: 97 T: 14 QT: 416 QTc: 345 Interpretive Statements SINUS BRADYCARDIA Compared to ECG 10/31/2022 17:37:00 No significant changes Electronically Signed On 11-04-2022 19:55:29 CDT by Pamella Mosqueda M.D. [id number]
[2022-11-02 22:32] VITALS: TEMP 36.4
[2022-11-02 22:52] LABS: Basophils # 0.1 10^3/uL (0.0-0.1); Basophils % 0.5 %; Eosinophils # 0.3 10^3/uL (0.0-0.8); Eosinophils % 1.7 %; Hematocrit 49.1 % (42.0-52.0); Hemoglobin 16.4 g/dL (11.7-16.6); Lymphocytes # 3.9 10^3/uL (0.8-4.8); Lymphocytes % 23.6 %; Mean Corpuscular HGB Conc 33.4 g/dL (30.0-36.0); Mean Corpuscular Hemoglobin 30.4 pg (28.0-34.0); Mean Corpuscular Volume 90.9 fl (80-94); Mean Platelet Volume 9.9 fL (7.4-10.4); Monocytes # 1.2 10^3/uL (0.2-0.9); Monocytes % 7.2 %; Neutrophils # 11.07 10^3/uL (1.8-7.7); Neutrophils % 66.7 %; Nucleated Red Blood Cells % 0 %; Platelet Count 261 10^3/cmm (130-400); Red Cell Distribution Width 12.4 % (12.1-15.1); White Blood Count 16.6 10^3/uL (4.0-10.0)
[2022-11-02 23:10] LABS: Troponin(5th) Baseline 8 ng/L (0-15)
[2022-11-02 23:12] LABS: Alanine Aminotransferase 27 U/L (0-41); Albumin Level 4.6 g/dL (3.5-5.2); Alkaline Phosphatase 72 U/L (40-130); Aspartate Amino Transferase 17 U/L (0-40); Blood Urea Nitrogen 17 mg/dL (6-20); Calcium 13.4 mg/dL (8.5-10.5); Carbon Dioxide 24 mmol/L (22-29); Chloride 105 mmol/L (98-107); Creatinine Clr Calc Pharmacy 92.6423; Globulin 1.9 g/dL (1.3-4.6); Glomerular Filtration Rate 68.5 mL/min (90-130); Glucose 87 mg/dL (65-115); Lipase 55 U/L (13-60); Osmolality Calculated 285 mOsm/kg (285-295); Sodium 137 mmol/L (136-145); Total Bilirubin 0.5 mg/dL (0.15-1.2); Total Protein 6.5 g/dL (6.6-8.7)
[2022-11-02 23:14] LABS: Anion Gap 12.4 (5-19); Potassium 4.4 mmol/L (3.5-5.1)
--- NOTE | 2022-11-02 23:28 | W.ED.CHESTPA ---
HPI - Chest Pain General: Chief Complaint: Chest Pain Stated Complaint: CP Time Seen by Provider: 11/02/22 22:24 Source: patient and police Mode of arrival: other Limitations: no limitations History of Present Illness: 37-year-old male who is here from custodial states been having chest pain throughout the day. States that sharp pain in the center of his chest. Seen here previously for the same he had actually had a cardiac cath 2 weeks ago showed no acute abnormalities. He denies any shortness of breath denies any worsening proving factors rates his pain a 6 out of 10 currently. Associated symptoms: Deny abdominal pain, dyspnea, fever(s), nausea or vomiting Review of Systems Const: Denies: fever(s) or chills ENMT: Denies: throat pain or dental pain Card: Reports: chest pain Resp: Denies: dyspnea GI: Denies: abdominal pain, nausea, vomiting or diarrhea Musc: Denies: neck pain or back pain Skin/Breast: Denies: rash Neuro: Denies: headache(s) PFSH ED PFSH: Medical History Lumbar disc disease with radiculopathy Social History Smoking and tobacco status: former smoker Quit status (tobacco): has quit using tobacco Household members: significant other Physical Exam Const: COMMON NORMALS: no acute distress, patient oriented x3 and healthy appearing HENMT: COMMON NORMALS: normocephalic and atraumatic HEAD & SCALP: normocephalic and atraumatic Neck/C-Spine: COMMON NORMALS: full ROM and supple Chest: COMMONS NORMALS: normal inspection of the chest and normal palpation of entire chest wall Resp: COMMON NORMALS: normal respiratory effort, No retractions, No use of accessory muscles and clear to auscultation bilaterally AUSCULTATION: clear to auscultation bilaterally Cardio: COMMON NORMALS: regular rate, regular rhythm and No murmurs present (Cardio) RATE: regular rate RHYTHM: regular rhythm GI: COMMON NORMALS: Normal to inspection, nondistended, normoactive bowel sounds present, Soft to palpation, non-tender and no masses PALPATION: Yes Soft to palpation Extremity: COMMON NORMALS: normal to inspection and full ROM Neuro: COMMON NORMALS: patient oriented x3, moves all extremities and no focal motor deficits Psych: COMMON NORMALS: mental status grossly normal, Normal thought process present and cooperative THOUGHT PROCESS: Normal thought process present Skin: COMMON NORMALS: no rashes or lesions noted and no wounds GENERAL SKIN EXAM: no rashes or lesions noted Course Vital Signs: Vital signs: Vital Signs Temperature 97.6 F 11/02/22 22:32 Pulse Rate 48 L 11/02/22 23:45 Respiratory Rate 16 11/02/22 23:45 Blood Pressure 128/80 11/02/22 23:45 Pulse Oximetry 95 11/02/22 23:45 MDM - Chest Pain Medical Decision Making Patient presents for chest pain is atypical in nature his troponin here is normal he had a recent negative cath 2 weeks ago EKG shows no acute abnormalities he is stable for discharge back to custodial. Medical Records I reviewed the patient's medical records. Lab Data I reviewed the patient's lab results. 11/02/22 22:45 11/02/22 22:45 Radiology Impressions Chest X-Ray 11/02/22 22:24 IMPRESSION: No acute findings. Laboratory Results WBC 16.6 10^3/uL (4.0-10.0) H 11/02/22 22:45 RBC 5.40 10^6/uL (4.1-5.3) H 11/02/22 22:45 Hgb 16.4 g/dL (11.7-16.6) 11/02/22 22:45 Hct 49.1 % (42.0-52.0) 11/02/22 22:45 MCV 90.9 fl (80-94) 11/02/22 22:45 MCH 30.4 pg (28.0-34.0) 11/02/22 22:45 MCHC 33.4 g/dL (30.0-36.0) 11/02/22 22:45 RDW 12.4 % (12.1-15.1) 11/02/22 22:45 Plt Count 261 10^3/cmm (130-400) 11/02/22 22:45 MPV 9.9 fL (7.4-10.4) 11/02/22 22:45 Neut % (Auto) 66.7 % 11/02/22 22:45 Lymph % (Auto) 23.6 % 11/02/22 22:45 [place] % (Auto) 7.2 % 11/02/22 22:45 Eos % (Auto) 1.7 % 11/02/22 22:45 Baso % (Auto) 0.5 % 11/02/22 22:45 Neut # (Auto) 11.07 10^3/uL (1.8-7.7) H 11/02/22 22:45 Lymph # (Auto) 3.9 10^3/uL (0.8-4.8) 11/02/22 22:45 [place] # (Auto) 1.2 10^3/uL (0.2-0.9) H 11/02/22 22:45 Eos # (Auto) 0.3 10^3/uL (0.0-0.8) 11/02/22 22:45 Baso # (Auto) 0.1 10^3/uL (0.0-0.1) 11/02/22 22:45 Nucleated RBC % (auto) 0 % 11/02/22 22:45 Nucleated RBCs # 0.0 /100WBC 11/02/22 22:45 Sodium 137 mmol/L (136-145) 11/02/22 22:45 Potassium 4.4 mmol/L (3.5-5.1) 11/02/22 22:45 Chloride 105 mmol/L (98-107) 11/02/22 22:45 Carbon Dioxide 24 mmol/L (22-29) 11/02/22 22:45 Anion Gap 12.4 (5-19) 11/02/22 22:45 BUN 17 mg/dL (6-20) 11/02/22 22:45 Creatinine 1.2 mg/dL (0.7-1.2) 11/02/22 22:45 GFR Calculation 68.5 mL/min (90-130) L 11/02/22 22:45 Glucose 87 mg/dL (65-115) 11/02/22 22:45 Calculated Osmolality 285 mOsm/kg (285-295) 11/02/22 22:45 Calcium 13.4 mg/dL (8.5-10.5) H 11/02/22 22:45 Total Bilirubin 0.5 mg/dL (0.15-1.2) 11/02/22 22:45 AST 17 U/L (0-40) 11/02/22 22:45 ALT 27 U/L (0-41) 11/02/22 22:45 Alkaline Phosphatase 72 U/L (40-130) 11/02/22 22:45 Troponin T Baseline 8 ng/L (0-15) 11/02/22 22:45 Total Protein 6.5 g/dL (6.6-8.7) L 11/02/22 22:45 Albumin 4.6 g/dL (3.5-5.2) 11/02/22 22:45 Globulin 1.9 g/dL (1.3-4.6) 11/02/22 22:45 Lipase 55 U/L (13-60) 11/02/22 22:45 EKG Data EKG 1: I personally reviewed and interpreted this EKG as follows: EKG interpretation date: 11/02/22 EKG interpretation time: 22:28 Interpretation: sinus bradycardia [address] or t wave abnormalities qrs 97 qtc 352 Discharge Plan Discharge Patient Disposition: Home Clinical Impression: Chest pain, atypical Condition: Stable Prescriptions: No Action nitroglycerin 0.4 mg tablet, sublingual 0.4 mg sublingual Q5M PRN (Reason: chest pain) Qty: 30 0RF Rx Instructions: do not exceed 3 doses per episode cinacalcet 30 mg tablet 30 mg PO DAILY Qty: 90 0RF Rx Instructions: (pt states not started states [place] got [facility]) naproxen [Naprosyn] 500 mg tablet 500 mg PO BID PRN (Reason: pain) Qty: 20 0RF hydrocodone-acetaminophen 7.5-325 mg tablet 1 tab PO QID PRN (Reason: Pain) Discharge Orders: Discharge ED (Routine); Ordered 11/02/22 Ordered By: Carina De Leon Referrals: Jose Brown [Primary Care Provider] - Discharge Diet: Advance as tolerated Discharge Activity: Resume usual activity Patient Instructions: Chest Pain (ED) Coding Level of Care Code ED Hair Designer for Juan Jose Lima
[2022-11-02] MEDS: ondansetron 2 mg/ML SDV 2 mL 4 MG IVP (23:42)
[2022-11-02 23:43] VITALS: RESP 16
[2022-11-02] MEDS: morphine 4 mg/mL SDV 1 mL IVP (23:43)
[2022-11-02 23:45] VITALS: BP 128/80; PULSE 48; RESP 16; O2SAT 95
== END 2022-11-03 00:24 | disposition home or self-care (01) ==
PROVIDERS: Emergency Provider Emergency Medicine; PCP Family Medicine
DX: R07.89 Other chest pain (principal)
CPT/HCPCS: 71045; 80053; 83690; 84484; 85025; 93005; 96374; 96375; 99285; J2270; J2405

== ENCOUNTER → 2022-11-12 12:54 | Outpatient (BNVA) | payer MEDICARE, SELFPAY | PROVIDERS: PCP Family Medicine; Referring Provider Emergency Medicine; Visit Provider Nurse Practitioner Family | DX: Q24.5 Malformation of coronary vessels (principal) | CPT/HCPCS: 80048; 99214 ==

== ENCOUNTER → 2023-02-24 09:07 | Outpatient (BNVA) | payer MEDICARE, SELFPAY | PROVIDERS: PCP Family Medicine; Visit Provider Internal Medicine | DX: E21.0 Primary hyperparathyroidism (principal); N20.0 Calculus of kidney; R07.9 Chest pain, unspecified | CPT/HCPCS: 36415; 80053; 82310; 83970; 99214 ==

== ENCOUNTER 2023-03-10 14:08 | Outpatient (CLI) | payer MEDICARE, SELFPAY ==
[2023-03-10 15:01] LABS: Alanine Aminotransferase 27 U/L (0-41); Albumin Level 4.5 g/dL (3.5-5.2); Alkaline Phosphatase 92 U/L (40-130); Aspartate Amino Transferase 16 U/L (0-40); Blood Urea Nitrogen 16 mg/dL (6-20); Carbon Dioxide 22 mmol/L (22-29); Chloride 105 mmol/L (98-107); Glomerular Filtration Rate 68.5 mL/min (90-130); Glucose 117 mg/dL (65-115); Osmolality Calculated 288 mOsm/kg (285-295); Sodium 138 mmol/L (136-145); Total Bilirubin 0.2 mg/dL (0.15-1.2); Total Protein 7.5 g/dL (6.6-8.7)
[2023-03-10 15:04] LABS: Calcium 11.9 mg/dL (8.5-10.5)
[2023-03-10 15:12] LABS: Parathyroid Hormone 168.4 pg/mL (15-65)
== END 2023-03-10 14:09 | disposition home or self-care (01) ==
LOC: LAB 14:10
PROVIDERS: PCP Family Medicine; Visit Provider Internal Medicine
DX: E21.0 Primary hyperparathyroidism (principal)
CPT/HCPCS: 36415; 80053; 82310; 83970

== ENCOUNTER 2023-09-06 11:49 | Emergency (ER) | payer OTHER, MEDICARE, SELFPAY ==
[2023-09-06 11:53] VITALS: BP 125/65; PULSE 84; RESP 14; TEMP 36.7; O2SAT 92; BMI 29.2
--- NOTE | 2023-09-06 11:54 | XR_ITS ---
WS: [id number] Exam: XR chest 1V portable [id number] Date/Time of Exam: 09/06/2023 11:55 AM Reason For Exam: Chest pain Comparison 11/02/2022. Findings: The lungs are clear and fully expanded. Costophrenic angles are sharp. No infiltrates. Bronchovascula r relief appears normal. Cardiac silhouette is unremarkable. Bony elements are intact. XR/XR chest 1V portable [id number] IMPRESSION: Unremarkable chest radiograph.
--- NOTE | 2023-09-06 11:54 | ECG_ITS ---
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 Measurements Intervals [place] Rate: 69 P: 48 NV: 161 QRS: -4 QRSD: 93 T: 4 QT: 371 QTc: 397 Interpretive Statements SINUS RHYTHM Compared to ECG 11/02/2022 22:28:11 Sinus bradycardia no longer present Electronically Signed On 09-06-2023 14:48:31 CDT by Aram Bejarano M.D. [email or web address]/store/[id number]
[2023-09-06 12:08] LABS: Basophils # 0.1 10^3/uL (0.0-0.1); Basophils % 0.5 %; Eosinophils # 0.1 10^3/uL (0.0-0.8); Eosinophils % 0.3 %; Hematocrit 50.9 % (37-53); Lymphocytes # 1.8 10^3/uL (0.8-4.8); Lymphocytes % 12.2 %; Mean Corpuscular HGB Conc 32.6 g/dL (30-55); Mean Corpuscular Hemoglobin 29.3 pg (27-33); Mean Corpuscular Volume 89.9 fl (82-101); Mean Platelet Volume 9.4 fL (7.4-10.4); Monocytes # 0.7 10^3/uL (0.2-0.9); Neutrophils # 11.68 10^3/uL (1.8-7.7); Neutrophils % 81.7 %; Nucleated Red Blood Cells % 0 %; Platelet Count 254 10^3/cmm (157-399); Red Blood Count 5.66 10^6/uL (3.85-5.65); Red Cell Distribution Width 13.4 % (12.1-15.1); White Blood Count 14.32 10^3/uL (3.29-11.43)
[2023-09-06 12:27] LABS: Troponin(5th) Baseline < 6 ng/L (0-15)
[2023-09-06 12:32] LABS: Alanine Aminotransferase 21 U/L (0-41); Albumin Level 4.1 g/dL (3.5-5.2); Alkaline Phosphatase 88 U/L (40-130); Anion Gap 20.2 (5-19); Aspartate Amino Transferase 17 U/L (0-40); Blood Urea Nitrogen 9 mg/dL (6-20); C Reactive Protein 10.3 mg/L (0.0-4.9); Calcium 11.3 mg/dL (8.5-10.5); Carbon Dioxide 18 mmol/L (22-29); Chloride 106 mmol/L (98-107); Globulin 3.3 g/dL (1.3-4.6); Glomerular Filtration Rate 68.1 mL/min (90-130); Glucose 91 mg/dL (65-115); Osmolality Calculated 288 mOsm/kg (285-295); Potassium 4.2 mmol/L (3.5-5.1); Sodium 140 mmol/L (136-145); Total Bilirubin 0.4 mg/dL (0.15-1.2); Total Protein 7.4 g/dL (6.6-8.7)
--- NOTE | 2023-09-06 13:05 | ED_ITS ---
HPI - Chest Pain 2 General: Chief Complaint: Chest Pain Stated Complaint: cp Time Seen by Provider: 09/06/23 11:52 History of Present Illness: 38-year-old man who presents to the [facility] room by ambulance with chest pain. He says he had a heart attack in the past and had a cath but no not have any stents. He does have nitro at home. He says pain started a couple of hours ago. [place] like a squeezing around his heart. He took several nitro which did not help. Ultimately Dilaudid in the ambulance improved his pain and he is now pain-free. No cough. No lower extremity swelling. No altered mental status. No nausea or vomiting. No abdominal pain. Review of Systems 2 Narrative: Constitutional symptoms: Negative except as documented in HPI. Skin symptoms: Negative except as documented in HPI. Eye symptoms: Negative except as documented in HPI. ENMT symptoms: Negative except as documented in HPI. Respiratory symptoms: Negative except as documented in HPI. Cardiovascular symptoms: Negative except as documented in HPI. Gastrointestinal symptoms: Negative except as documented in HPI. Genitourinary symptoms: Negative except as documented in HPI. Musculoskeletal symptoms: Negative except as documented in HPI. Neurologic symptoms: Negative except as documented in HPI. Psychiatric symptoms: Negative except as documented in HPI. Endocrine symptoms: Negative except as documented in HPI. PFSH ED 2 PFSH: Medical History Lumbar disc disease with radiculopathy Social History Smoking and tobacco/nicotine status: former use of tobacco/nicotine Quit status (tobacco/nicotine): has quit using Household members: significant other Physical Exam 2 Narrative: EXAM NARRATIVE: General: Alert, no acute distress. Skin: Warm, dry. Head: Normocephalic, atraumatic. Neck: Supple, trachea midline. Eye: Extraocular movements are intact. Ears, nose, mouth and throat: mucosa moist. Cardiovascular: Regular, Normal peripheral perfusion. Respiratory: Lungs are clear to auscultation, respirations are non-labored, breath sounds are equal, Symmetrical chest wall expansion. Gastrointestinal: Soft, Nontender, Non distended, Normal bowel sounds. Musculoskeletal: Normal ROM, no deformity. Neurological: Alert and oriented, No focal neurological deficit observed. Psychiatric: Cooperative, appropriate mood & affect. Course 2 Vital Signs: Vital signs: Vital Signs Temperature 98.0 F 09/06/23 11:53 Pulse Rate 84 09/06/23 11:53 Respiratory Rate 14 09/06/23 11:53 Blood Pressure 125/65 09/06/23 11:53 Pulse Oximetry 92 09/06/23 11:53 Oxygen Delivery Me thod Room Air 09/06/23 11:53 MDM - Chest Pain Medical Decision Making Differential diagnosis for patient with chest pain includes but is not limited to and based on the above HPI, review of systems and physical exam: Pneumonia. unstable angina. angina. Acute coronary syndrome / NE. Pulmonary embolism. Costochondritis / musculoskeletal. Pleurisy. Pericarditis. Esophageal spasm. Pancreatis. Cholecystitis. Orders placed to evaluate differential diagnosis based on the above differential, HPI and physical exam EKG: Time 1149. Rate 69. Normal sinus rhythm, No ST-T changes, no ectopy, normal NE & QRS intervals, This was reviewed and interpreted by myself the ER physician at 1152 Chest x-ray: No acute process. No infiltrate. No pneumothorax. No cardiomegaly. This was reviewed and interpreted by myself the ER physician. Lab Review: Laboratory results were reviewed and interpreted by myself the emergency room physician. Patient has mild leukocytosis with a white count 14. Hemoglobin is 16. BUN and creatinine are 9 and 1.2. Initial troponin was negative. Patient decided he wanted to leave before getting a second troponin.. I reviewed the patient's medical record. Assessment and plan: Chest pain, noncardiac - Discharged home - Discussed findings and plan with patient. Answered any questions. - All laboratory values were reviewed and interpreted personally by myself, the ER physician - All imaging was reviewed and interpreted personally by myself, the ER physician. - Evaluation and treatment of this problem were appropriate in the emergency setting Lab Data 09/06/23 11:58 09/06/23 11:58 Radiology Impressions Chest X-Ray 09/06/23 11:54 IMPRESSION: Unremarkable chest radiograph. Laboratory Results WBC 14.32 10^3/uL (3.29-11.43) H 09/06/23 11:58 RBC 5.66 10^6/uL (3.85-5.65) H 09/06/23 11:58 Hgb 16.60 g/dL (11.27-16.99) 09/06/23 11:58 Hct 50.9 % (37-53) 09/06/23 11:58 MCV 89.9 fl (82-101) 09/06/23 11:58 MCH 29.3 pg (27-33) 09/06/23 11:58 MCHC 32.6 g/dL (30-55) 09/06/23 11:58 RDW 13.4 % (12.1-15.1) 09/06/23 11:58 Plt Count 254 10^3/cmm (157-399) 09/06/23 11:58 MPV 9.4 fL (7.4-10.4) 09/06/23 11:58 Neut % (Auto) 81.7 % 09/06/23 11:58 Lymph % (Auto) 12.2 % 09/06/23 11:58 [place] % (Auto) 5.0 % 09/06/23 11:58 Eos % (Auto) 0.3 % 09/06/23 11:58 Baso % (Auto) 0.5 % 09/06/23 11:58 Neut # (Auto) 11.68 10^3/uL (1.8-7.7) H 09/06/23 11:58 Lymph # (Auto) 1.8 10^3/uL (0.8-4.8) 09/06/23 11:58 [place] # (Auto) 0.7 10^3/uL (0.2-0.9) 09/06/23 11:58 Eos # (Auto) 0.1 10^3/uL (0.0-0.8) 09/06/23 11:58 Baso # (Auto) 0.1 10^3/uL (0.0-0.1) 09/06/23 11:58 Nucleated RBC % (auto) 0 % 09/06/23 11:58 Nucleated RBCs # 0.0 /100WBC 09/06/23 11:58 Sodium 140 mmol/L (136-145) 09/06/23 11:58 Potassium 4.2 mmol/L (3.5-5.1) 09/06/23 11:58 Chloride 106 mmol/L (98-107) 09/06/23 11:58 Carbon Dioxide 18 mmol/L (22-29) L 09/06/23 11:58 Anion Gap 20.2 (5-19) H 09/06/23 11:58 BUN 9 mg/dL (6-20) 09/06/23 11:58 Creatinine 1.2 mg/dL (0.7-1.2) 09/06/23 11:58 GFR Calculation 68.1 mL/min (90-130) L 09/06/23 11:58 Glucose 91 mg/dL (65-115) 09/06/23 11:58 Calculated Osmolality 288 mOsm/kg (285-295) 09/06/23 11:58 Calcium 11.3 mg/dL (8.5-10.5) H 09/06/23 11:58 Total Bilirubin 0.4 mg/dL (0.15-1.2) 09/06/23 11:58 AST 17 U/L (0-40) 09/06/23 11:58 ALT 21 U/L (0-41) 09/06/23 11:58 Alkaline Phosphatase 88 U/L (40-130) 09/06/23 11:58 Troponin T Baseline < 6 ng/L (0-15) 09/06/23 11:58 C-Reactive Protein 10.3 mg/L (0.0-4.9) H 09/06/23 11:58 Total Protein 7.4 g/dL (6.6-8.7) 09/06/23 11:58 Albumin 4.1 g/dL (3.5-5.2) 09/06/23 11:58 Globulin 3.3 g/dL (1.3-4.6) 09/06/23 11:58 All radiology interpretation(s) finalized by discharge Discharge Plan Discharge Patient Disposition: Home Clinical Impression: Chest pain Condition: Stable Prescriptions: No Action cyclobenzaprine 10 mg tablet 10 mg PO Q8H lisinopril 20 mg tablet 20 mg PO DAILY diltiazem HCl 60 mg capsule,extended release 12 hr 60 mg PO BID Qty: 60 1RF Rx Instructions: monitor heart rate nitroglycerin 0.4 mg tablet, sublingual See Rx Instructions .ROUTE .COMPLEX Qty: 25 0RF Dose Instruction: TAKE 1 TABLET SUBLINGUALLY EVERY 5 MINUTES NEEDED FOR CHEST PAIN DO NOT EXCEED 3 DOSES PER EPISODE Rx Instructions: TAKE 1 TABLET SUBLINGUALLY EVERY 5 MINUTES NEEDED FOR CHEST PAIN DO NOT EXCEED 3 DOSES PER EPISODE cinacalcet 30 mg tablet 30 mg PO BID 90 Days Qty: 180 0RF hydrocodone-acetaminophen 7.5-325 mg tablet 1 tab PO QID PRN (Reason: Pain) Discharge Orders: Discharge ED (Routine); Ordered 09/06/23 Ordered By: Tory Maxwell Referrals: Jose Brown [Primary Care Provider] - 1-3 days Discharge Diet: Usual diet Discharge Activity: Increase activity as tolerated Patient Instructions: Noncardiac Chest Pain (ED) Activity Restrictions/Additional Instructions: Thank you for choosing [facility] for your healthcare needs today. Please realize this is an emergency room and that we are providing you with a medical screening exam and this may not be complete and all inclusive of all the testing and or work up that you may need to determine your ailment or severity of your illness. You have been screened and evaluated and felt safe for discharge. Health conditions do change or evolve sometimes and as such it is important that you follow up with your Primary Doctor to be re checked, 3-5 days is a general good time frame for follow up. 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
== END 2023-09-06 13:41 | disposition home or self-care (01) ==
PROVIDERS: Emergency Provider Emergency Medicine; PCP Family Medicine
DX: R07.9 Chest pain, unspecified (principal); Z87.891 Personal history of nicotine dependence
CPT/HCPCS: 36415; 71045; 80053; 84484; 85025; 86140; 93005; 99285

== ENCOUNTER 2023-12-02 20:21 | Emergency (ER) | payer OTHER, MEDICARE, SELFPAY ==
[2023-12-02 20:23] VITALS: BP 176/69; PULSE 60; RESP 20; TEMP 36.8; O2SAT 97; BMI 33.4
--- NOTE | 2023-12-02 20:33 | ED.C_ITS ---
HPI - Psych General: Chief Complaint: Psychiatric Symptoms Stated Complaint: MHE Time Seen by Provider: 12/02/23 20:25 Source: patient and police Limitations: no limitations History of Present Illness: 38-year-old male who is here from residential s tates that he has been having suicidal ideations there with plan of hanging himself states he used to take BuSpar is currently out of the BuSpar. Denies any worse improved factors Associated symptoms: Reports depression and suicidal ideation Related Data Home Medications Medication Instructions Recorded Confirmed hydrocodone 7.5 mg-acetaminophen 1 tab PO QID PRN Pain 10/31/22 03/23/23 325 mg tablet cyclobenzaprine 10 mg tablet 10 mg PO Q8H 11/12/22 03/23/23 lisinopril 20 mg tablet 20 mg PO DAILY 11/12/22 03/23/23 Previous Rx's Medication Instructions Recorded diltiazem HCl 60 mg 60 mg PO BID #60 caps 11/12/22 capsule,extended release 12 hr nitroglycerin 0.4 mg sublingual See Rx Instructions .Route 02/24/23 tablet .COMPLEX #25 tabs cinacalcet 30 mg tablet 30 mg PO BID 90 days #180 tabs 03/25/23 buspirone 10 mg tablet 10 mg PO TID #90 tabs 12/02/23 Allergies Allergy/AdvReac Type Severity Reaction Status Date / Time baclofen Allergy Unknown Unknown Verified 09/06/23 12:03 bupropion Allergy Unknown Unknown Verified 09/06/23 12:03 fluoxetine Allergy Unknown Unknown Verified 09/06/23 12:03 unclassified drug Allergy Unknown Unknown Uncoded 09/06/23 12:03 Review of Systems Const: Denies: fever(s), chills, body aches or change in appetite ENMT: Denies: throat pain or dental pain Card: Denies: chest pain Resp: Denies: dyspnea GI: Denies: abdominal pain, nausea, vomiting or diarrhea Musc: Denies: neck pain or back pain Skin/Breast: Denies: rash Neuro: Denies: headache(s) Psych: Reports: depression and suicidal ideation [facility] ED PFSH: Medical History Lumbar disc disease with radiculopathy Social History Smoking and tobacco/nicotine status: former use of tobacco/nicotine Quit status (tobacco/nicotine): has quit using Household members: significant other Physical Exam Const: COMMON NORMALS: no acute distress, patient oriented x3 and healthy appearing HENMT: COMMON NORMALS: normocephalic and atraumatic HEAD & SCALP: normoc ephalic and atraumatic Neck/C-Spine: COMMON NORMALS: full ROM and supple Chest: COMMONS NORMALS: normal inspection of the chest Resp: COMMON NORMALS: normal respiratory effort Cardio: COMMON NORMALS: regular rate RATE: regular rate Extremity: COMMON NORMALS: normal to inspection and full ROM Neuro: COMMON NORMALS: patient oriented x3, moves all extremities and no focal motor deficits Psych: COMMON NORMALS: mental status grossly normal, Normal thought process present and cooperative THOUGHT PROCESS: Normal thought process present Skin: COMMON NORMALS: no rashes or lesions noted and no wounds GENERAL SKIN EXAM: no rashes or lesions noted Course Vital Signs: Vital signs: Vital Signs Temperature 98.3 F 12/02/23 20:23 Pulse Rate 74 12/02/23 22:13 Respiratory Rate 16 12/02/23 22:01 Blood Pressure 170/87 12/02/23 22:13 Pulse Oximetry 96 12/02/23 22:13 Oxygen Delivery Me thod Room Air 12/02/23 22:01 MDM - Psych Medical Decision Making Patient presents here with suicidal ideations he has been seen by psychiatrist Dr. Wang patient is currently incarcerated the gel he has a plan to transfer him to a place with suicide watch he is stable for discharge back to residential at this time and does not need to be admitted Medical Records I reviewed the patient's medical records. No radiology studies performed this visit Discharge Plan Discharge Patient Disposition: Home Clinical Impression: Suicidal ideation Condition: Stable Prescriptions: New buspirone 10 mg tablet 10 mg PO TID Qty: 90 0RF No Action cyclobenzaprine 10 mg tablet 10 mg PO Q8H lisinopril 20 mg tablet 20 mg PO DAILY diltiazem HCl 60 mg capsule,extended release 12 hr 60 mg PO BID Qty: 60 1RF Rx Instructions: monitor heart rate nitroglycerin 0.4 mg tablet, sublingual See Rx Instructions .ROUTE .COMPLEX Qty: 25 0RF Dose Instruction: TAKE 1 TABLET SUBLINGUALLY EVERY 5 MINUTES NEEDED FOR CHEST PAIN DO NOT EXCEED 3 DOSES PER EPISODE Rx Instructions: TAKE 1 TABLET SUBLINGUALLY EVERY 5 MINUTES NEEDED FOR CHEST PAIN DO NOT EXCEED 3 DOSES PER EPISODE cinacalcet 30 mg tablet 30 mg PO BID 90 Days Qty: 180 0RF hydrocodone-acetaminophen 7.5-325 mg tablet 1 tab PO QID PRN (Reason: Pain) Discharge Orders: Discharge ED (Routine); Ordered 12/02/23 Ordered By: Carina De Leon Referrals: Jose Brown [Primary Care Provider] - Discharge Diet: Advance as tolerated Discharge Activity: Resume usual activity Patient Instructions: Depression (ED) Coding Level of Care Code ED Eligibility Supervisor for Juan Jose Lima
[2023-12-02] MEDS: BuSPIRONE 10 mg Tablet PO (21:44)
[2023-12-02 22:01] VITALS: BP 170/87; PULSE 74; RESP 16; O2SAT 96
[2023-12-02 22:13] VITALS: BP 170/87; PULSE 74; O2SAT 96
== END 2023-12-02 22:00 | disposition home or self-care (01) ==
PROVIDERS: Emergency Provider Emergency Medicine; PCP Family Medicine
DX: R45.851 Suicidal ideations (principal); Z87.891 Personal history of nicotine dependence
CPT/HCPCS: 99283

== ENCOUNTER 2023-12-23 01:48 | Emergency (ER) | payer OTHER, MEDICARE, SELFPAY ==
[2023-12-23 01:51] VITALS: BP 148/104; PULSE 61; RESP 18; TEMP 36.6; O2SAT 96; BMI 27.3
--- NOTE | 2023-12-23 01:52 | ECG_ITS ---
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 Measurements Intervals [place] Rate: 47 P: 52 [place]: 191 QRS: 3 QRSD: 100 T: 30 QT: 407 QTc: 363 Interpretive Statements SINUS BRADYCARDIA Compared to ECG 09/06/2023 11:49:41 Sinus rhythm no longer present Electronically Signed On 12-24-2023 07:42:43 CDT by Woodrow Machuca M.D. [email or web address] rehabilitation hospitalGift Pinpointselect medical specialty hospital - southeast ohioWizard's Nation/store/OM/[id number]
--- NOTE | 2023-12-23 01:52 | XRR_ITS ---
PROCEDURE INFORMATION: Exam: XR Chest Exam date and time: 12/23/2023 2:02 AM Age: 38 years old Clinical indication: Cough with hemorrhage; Additional info: Chest pain, hemoptysis TECHNIQUE: Imaging protocol: Radiologic exam of the chest. Views: 1 view. COMPARISON: CR XR chest 1V portable [id number] 09/06/2023 12:28 PM FINDINGS: Lungs: No consolidation. Pleural spaces: No pleural effusion. No pneumothorax. Heart/Mediastinum: No cardiomegaly. Bones/joints: No acute findings. XR/XR chest 1V portable [id number] IMPRESSION: No acute chest findings.
--- NOTE | 2023-12-23 01:55 | W.ED.GENADLT ---
HPI - General Adult General: Chief complaint: Upper Respiratory Infection Stated complaint: coughing up blood Time Seen by Provider: 12/23/23 01:51 History of Present Illness: Patient resents to the ER with main complaint of coughing up blood. Says started today and he thinks he coughed up about a half a cup total. Patient also been having chest pain for a long time. He says he is got a bad valve in his heart that the health and physical education teacher told him about several years ago this is no more pain than normal. Patient is in [facility] at this time. He says he is not any type of anticoagulation, denies shortness of breath, diaphoresis, nausea vomiting Related Data Home Medications Medication Instructions Recorded Confirmed hydrocodone 7.5 mg-acetaminophen 1 tab PO QID PRN Pain 10/31/22 03/23/23 325 mg tablet cyclobenzaprine 10 mg tablet 10 mg PO Q8H 11/12/22 03/23/23 lisinopril 20 mg tablet 20 mg PO DAILY 11/12/22 03/23/23 Previous Rx's Medication Instructions Recorded diltiazem HCl 60 mg 60 mg PO BID #60 caps 11/12/22 capsule,extended release 12 hr nitroglycerin 0.4 mg sublingual See Rx Instructions .Route 02/24/23 tablet .COMPLEX #25 tabs cinacalcet 30 mg tablet 30 mg PO BID 90 days #180 tabs 03/25/23 buspirone 10 mg tablet 10 mg PO TID #90 tabs 12/02/23 Allergies Allergy/AdvReac Type Severity Reaction Status Date / Time baclofen Allergy Unknown Unknown Verified 12/23/23 02:05 bupropion Allergy Unknown Unknown Verified 12/23/23 02:05 fluoxetine Allergy Unknown Unknown Verified 12/23/23 02:05 unclassified drug Allergy Unknown Unknown Uncoded 12/23/23 02:05 Review of Systems General: Reports: 10 or more systems reviewed and unremarkable except in HPI and below PFSH ED PFSH: Medical History Lumbar disc disease with radiculopathy Social History Smoking and tobacco/nicotine status: former use of tobacco/nicotine Quit status (tobacco/nicotine): has quit using Household members: significant other Physical Exam Const: COMMON NORMALS: no acute distress, average body habitus, patient oriented x3, no limitations, healthy appearing, alert and well nourished HENMT: COMMON NORMALS: normocephalic, atraumatic, hearing grossly normal bilaterally, external ears normal, Normal external nose present and moist oral mucous membranes HEAD & SCALP: normocephalic and atraumatic NOSE: Normal external nose present EXTERNAL EAR: Yes external ears normal Neck/C-Spine: COMMON NORMALS: full ROM, no lymphadenopathy, supple, no meningeal signs, no JVD and Thyroid normal THYROID: Thyroid normal Chest: COMMONS NORMALS: normal inspection of the chest and normal palpation of entire chest wall Resp: COMMON NORMALS: normal respiratory effort, No retractions, No use of accessory muscles and clear to auscultation bilaterally AUSCULTATION: clear to auscultation bilaterally Cardio: COMMON NORMALS: no JVD, regular rate, regular rhythm, S1 normal heart sound present, S2 normal heart sound present, No gallops present (Cardio), No clicks present (Cardio), No murmurs present (Cardio) and No rub (Cardio) RATE: regular rate RHYTHM: regular rhythm HEART SOUNDS: S1 normal heart sound present and S2 normal heart sound present GI: COMMON NORMALS: Normal to inspection, nondistended, normoactive bowel sounds present, Soft to palpation, non-tender, No hepatosplenomegaly present and no masses PALPATION: Yes Soft to palpation and Yes No hepatosplenomegaly present Neuro: COMMON NORMALS: patient oriented x3 SENSORIUM/ORIENTATION: Yes alert MENINGEAL SIGNS: Yes no meningeal signs Course Vital Signs: Vital signs: Vital Signs Temperature 97.9 F 12/23/23 01:51 Pulse Rate 17 L 12/23/23 02:05 Respiratory Rate 19 H 12/23/23 02:05 Blood Pressure 148/104 12/23/23 02:05 Pulse Oximetry 95 12/23/23 02:05 Oxygen Delivery Me thod Room Air 12/23/23 01:51 [facility] - General Adult Medical Decision Making Lab work was unremarkable, white count 12.62, hemoglobin hematocrit 17.1 and 52, BUN/creatinine thirteen 1.1, chest x-ray negative, troponins negative, EKG sinus bradycardia between 39 and 47 bpm, I did discuss this case with Dr. Mora and Dr. Machuca, Dr. Martinez said as long as this is a sinus bradycardia with no pauses we can send the patient back to care home where he can be monitored and wear a monitor. P We will consult case management for event/Holter monitor monitor and discharge patient back to care home. Medical Records I reviewed the patient's medical records. Lab Data I reviewed the patient's lab results. 12/23/23 02:05 12/23/23 02:05 Radiology Impressions Chest X-Ray 12/23/23 01:52 IMPRESSION: No acute chest findings. Laboratory Results WBC 12.62 10^3/uL (3.29-11.43) H 12/23/23 02:05 RBC 5.92 10^6/uL (3.85-5.65) H 12/23/23 02:05 Hgb 17.10 g/dL (11.27-16.99) H 12/23/23 02:05 Hct 52.0 % (37-53) 12/23/23 02:05 MCV 87.8 fl (82-101) 12/23/23 02:05 MCH 28.9 pg (27-33) 12/23/23 02:05 MCHC 32.9 g/dL (30-55) 12/23/23 02:05 RDW 13.4 % (12.1-15.1) 12/23/23 02:05 Plt Count 231 10^3/cmm (157-399) 12/23/23 02:05 MPV 9.5 fL (7.4-10.4) 12/23/23 02:05 Neut % (Auto) 68.7 % 12/23/23 02:05 Lymph % (Auto) 23.4 % 12/23/23 02:05 [place] % (Auto) 4.4 % 12/23/23 02:05 Eos % (Auto) 2.7 % 12/23/23 02:05 Baso % (Auto) 0.6 % 12/23/23 02:05 Neut # (Auto) 8.68 10^3/uL (1.8-7.7) H 12/23/23 02:05 Lymph # (Auto) 3.0 10^3/uL (0.8-4.8) 12/23/23 02:05 [place] # (Auto) 0.6 10^3/uL (0.2-0.9) 12/23/23 02:05 Eos # (Auto) 0.3 10^3/uL (0.0-0.8) 12/23/23 02:05 Baso # (Auto) 0.1 10^3/uL (0.0-0.1) 12/23/23 02:05 Nucleated RBC % (auto) 0 % 12/23/23 02:05 Nucleated RBCs # 0.0 /100WBC 12/23/23 02:05 PT 13.00 SECONDS (12.1-14.9) 12/23/23 02:05 INR 0.96 (0.8-1.2) 12/23/23 02:05 Sodium 139 mmol/L (136-145) 12/23/23 02:05 Potassium 3.6 mmol/L (3.5-5.1) 12/23/23 02:05 Chloride 104 mmol/L (98-107) 12/23/23 02:05 Carbon Dioxide 25 mmol/L (22-29) 12/23/23 02:05 Anion Gap 13.6 (5-19) 12/23/23 02:05 BUN 13 mg/dL (6-20) 12/23/23 02:05 Creatinine 1.1 mg/dL (0.7-1.2) 12/23/23 02:05 GFR Calculation 75.3 mL/min (90-130) L 12/23/23 02:05 Glucose 172 mg/dL (65-115) H 12/23/23 02:05 Calculated Osmolality 292 mOsm/kg (285-295) 12/23/23 02:05 Calcium 10.8 mg/dL (8.5-10.5) H 12/23/23 02:05 Total Bilirubin 0.3 mg/dL (0.15-1.2) 12/23/23 02:05 AST 15 U/L (0-40) 12/23/23 02:05 ALT 16 U/L (0-41) 12/23/23 02:05 Alkaline Phosphatase 88 U/L (40-130) 12/23/23 02:05 Troponin T Baseline < 6 ng/L (0-15) 12/23/23 02:05 Total Protein 6.6 g/dL (6.6-8.7) 12/23/23 02:05 Albumin 4.2 g/dL (3.5-5.2) 12/23/23 02:05 Globulin 2.4 g/dL (1.3-4.6) 12/23/23 02:05 All radiology interpretation(s) finalized by discharge Discharge Plan Discharge Patient Disposition: Home Clinical Impression: Hemoptysis, Sinus bradycardia Condition: Stable Prescriptions: No Action cyclobenzaprine 10 mg tablet 10 mg PO Q8H lisinopril 20 mg tablet 20 mg PO DAILY diltiazem HCl 60 mg capsule,extended release 12 hr 60 mg PO BID Qty: 60 1RF Rx Instructions: monitor heart rate nitroglycerin 0.4 mg tablet, sublingual See Rx Instructions .ROUTE .COMPLEX Qty: 25 0RF Dose Instruction: TAKE 1 TABLET SUBLINGUALLY EVERY 5 MINUTES NEEDED FOR CHEST PAIN DO NOT EXCEED 3 DOSES PER EPISODE Rx Instructions: TAKE 1 TABLET SUBLINGUALLY EVERY 5 MINUTES NEEDED FOR CHEST PAIN DO NOT EXCEED 3 DOSES PER EPISODE cinacalcet 30 mg tablet 30 mg PO BID 90 Days Qty: 180 0RF buspirone 10 mg tablet 10 mg PO TID Qty: 90 0RF hydrocodone-acetaminophen 7.5-325 mg tablet 1 tab PO QID PRN (Reason: Pain) Discharge Orders: Discharge ED (Routine); Ordered 12/23/23 Ordered By: Gorge Hanson Referrals: Jose Brown [Referring] - 1 week Patient Instructions: Opioid Safety, Pain Management Activity Restrictions/Additional Instructions: Your chest x-ray did not show any acute cause of your coughing up blood, continue to cough up blood you may benefit from a CT of your chest. Your blood level was adequate. Your cardiac enzymes did not show any heart changes. The health and physical education teacher suggested we place a cardiac event monitor on you to watch your heart rate. We did consult case management who will be getting in touch with you to arrange this. Otherwise follow-up with the care home physician within 7 to 10 days for further evaluation and treatment. Coding Level of Care Code ED Machine Cementer And Folder for Juan Jose Lima
[2023-12-23 02:05] VITALS: BP 148/104; PULSE 48; RESP 19; O2SAT 95
[2023-12-23 02:09] LABS: Basophils # 0.1 10^3/uL (0.0-0.1); Basophils % 0.6 %; Eosinophils # 0.3 10^3/uL (0.0-0.8); Eosinophils % 2.7 %; Lymphocytes % 23.4 %; Mean Corpuscular HGB Conc 32.9 g/dL (30-55); Mean Corpuscular Hemoglobin 28.9 pg (27-33); Mean Corpuscular Volume 87.8 fl (82-101); Mean Platelet Volume 9.5 fL (7.4-10.4); Monocytes # 0.6 10^3/uL (0.2-0.9); Monocytes % 4.4 %; Neutrophils # 8.68 10^3/uL (1.8-7.7); Neutrophils % 68.7 %; Nucleated Red Blood Cells % 0 %; Platelet Count 231 10^3/cmm (157-399); Red Blood Count 5.92 10^6/uL (3.85-5.65); Red Cell Distribution Width 13.4 % (12.1-15.1); White Blood Count 12.62 10^3/uL (3.29-11.43)
[2023-12-23 02:21] LABS: INR 0.96 (0.8-1.2)
[2023-12-23] MEDS: ketorolac 30 mg/mL INJ IVP (02:22)
[2023-12-23 02:26] LABS: Troponin(5th) Baseline < 6 ng/L (0-15)
[2023-12-23 02:29] LABS: Alanine Aminotransferase 16 U/L (0-41); Albumin Level 4.2 g/dL (3.5-5.2); Alkaline Phosphatase 88 U/L (40-130); Blood Urea Nitrogen 13 mg/dL (6-20); Calcium 10.8 mg/dL (8.5-10.5); Carbon Dioxide 25 mmol/L (22-29); Chloride 104 mmol/L (98-107); Creatinine Clr Calc Pharmacy 95.8457; Globulin 2.4 g/dL (1.3-4.6); Glomerular Filtration Rate 75.3 mL/min (90-130); Glucose 172 mg/dL (65-115); Osmolality Calculated 292 mOsm/kg (285-295); Sodium 139 mmol/L (136-145); Total Bilirubin 0.3 mg/dL (0.15-1.2); Total Protein 6.6 g/dL (6.6-8.7)
[2023-12-23 02:41] LABS: Anion Gap 13.6 (5-19); Aspartate Amino Transferase 15 U/L (0-40); Potassium 3.6 mmol/L (3.5-5.1)
[2023-12-23 03:35] VITALS: BP 129/71; PULSE 50; RESP 20; O2SAT 98
--- NOTE | 2023-12-23 03:52 | ECG_ITS ---
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 Measurements Intervals [place] Rate: 39 P: 0 IN: 0 QRS: 35 QRSD: 104 T: 58 QT: 440 QTc: 358 Interpretive Statements SINUS BRADYCARDIA WITH 2ND DEGREE AV BLOCK, 2:1 OR MOBITZ TYPE II CRITICAL TEST RESULT Compared to ECG 12/23/2023 02:16:56 No significant changes Electronically Signed On 12-24-2023 22:36:53 CDT by Pamella Mosqueda M.D. [id number]
[2023-12-23] MEDS: acetaminophen 500 mg Tablet 1000 MG PO (03:56)
[2023-12-23 04:05] VITALS: BP 116/89; PULSE 45; RESP 22; O2SAT 98
--- NOTE | 2023-12-23 04:15 | ECG_ITS ---
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 Measurements Intervals [place] Rate: 45 P: 45 FL: 201 QRS: 11 QRSD: 99 T: 20 QT: 421 QTc: 364 Interpretive Statements SINUS BRADYCARDIA Compared to ECG 12/23/2023 04:08:30 No significant changes Electronically Signed On 12-24-2023 22:36:58 CDT by Pamella Mosqueda M.D. [id number]
[2023-12-23 04:40] LABS: Troponin 5 2HR Delta 0.00001 ABS# (0-10)
[2023-12-23 05:02] LABS: D Dimer <= 0.27 ug/mLFEU (0-0.59)
[2023-12-23 05:05] VITALS: BP 152/113; PULSE 53; RESP 24; O2SAT 97
[2023-12-23 05:18] VITALS: BP 152/113; PULSE 53; RESP 16; O2SAT 97
== END 2023-12-23 05:21 | disposition home or self-care (01) ==
PROVIDERS: Emergency Provider Emergency Medicine
DX: R04.2 Hemoptysis (principal); R00.1 Bradycardia, unspecified; Z87.891 Personal history of nicotine dependence
CPT/HCPCS: 71045; 80053; 84484; 85025; 85378; 85610; 93005; 96374; 99285; J1885

== ENCOUNTER 2024-01-22 20:51 | Emergency (ER) | payer OTHER, SELFPAY ==
[2024-01-22 20:55] VITALS: BP 151/86; PULSE 66; RESP 17; TEMP 36.6; O2SAT 99; BMI 27.6
--- NOTE | 2024-01-22 20:55 | ECG_ITS ---
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 Measurements Intervals [place] Rate: 71 P: 61 [place]: 171 QRS: -1 QRSD: 106 T: 43 QT: 365 QTc: 398 Interpretive Statements SINUS RHYTHM WITH SINUS ARRHYTHMIA Compared to ECG 12/23/2023 04:15:33 Sinus bradycardia no longer present Electronically Signed On 01-23-2024 14:03:34 HARBOUR MASTER by Bryan Orozco M.D. [id number] f
--- NOTE | 2024-01-22 21:08 | XRR_ITS ---
PROCEDURE INFORMATION: Exam: XR Chest Exam date and time: 01/22/2024 9:24 PM Age: 38 years old Clinical indication: Chest pressure; Patient HX: Chest pain TECHNIQUE: Imaging protocol: Radiologic exam of the chest. Views: 1 view. COMPARISON: CR (CHEST, ) 12/23/2023 2:02 AM FINDINGS: Lungs: Unremarkable. No consolidation. Pleural spaces: Unremarkable. No pleural effusion. No pneumothorax. Heart/Mediastinum: Unremarkable. No cardiomegaly. Bones/joints: Unremarkable. XR/XR chest 1V portable [id number] IMPRESSION: No acute findings.
[2024-01-22 21:18] LABS: Basophils # 0.1 10^3/uL (0.0-0.1); Basophils % 0.8 %; Eosinophils # 0.4 10^3/uL (0.0-0.8); Eosinophils % 3.2 %; Hematocrit 51.6 % (37-53); Lymphocytes # 3.7 10^3/uL (0.8-4.8); Lymphocytes % 32.3 %; Mean Corpuscular HGB Conc 32.9 g/dL (30-55); Mean Corpuscular Hemoglobin 28.7 pg (27-33); Mean Platelet Volume 9.2 fL (7.4-10.4); Monocytes # 0.8 10^3/uL (0.2-0.9); Monocytes % 6.5 %; Neutrophils # 6.55 10^3/uL (1.8-7.7); Neutrophils % 56.9 %; Nucleated Red Blood Cells % 0 %; Platelet Count 249 10^3/cmm (157-399); Red Blood Count 5.93 10^6/uL (3.85-5.65); Red Cell Distribution Width 13.4 % (12.1-15.1)
[2024-01-22 21:26] LABS: INR 0.91 (0.8-1.2)
[2024-01-22 21:49] VITALS: BP 151/86; PULSE 66; RESP 18; O2SAT 97
[2024-01-22 21:49] LABS: Alanine Aminotransferase 22 U/L (0-41); Albumin Level 4.4 g/dL (3.5-5.2); Alkaline Phosphatase 99 U/L (40-130); Anion Gap 13.9 (5-19); Aspartate Amino Transferase 15 U/L (0-40); Blood Urea Nitrogen 13 mg/dL (6-20); Carbon Dioxide 25 mmol/L (22-29); Chloride 105 mmol/L (98-107); Creatinine Clr Calc Pharmacy 132.4365; Globulin 2.8 g/dL (1.3-4.6); Glomerular Filtration Rate 108.8 mL/min (90-130); Glucose 107 mg/dL (65-115); NT Pro B Type Natriuretic Pept < 36 pg/mL (0-125); Osmolality Calculated 291 mOsm/kg (285-295); Potassium 3.9 mmol/L (3.5-5.1); Sodium 140 mmol/L (136-145); Total Bilirubin 0.2 mg/dL (0.15-1.2); Total Protein 7.2 g/dL (6.6-8.7)
[2024-01-22 21:52] LABS: Troponin(5th) Baseline < 6 ng/L (0-15)
--- NOTE | 2024-01-22 22:07 | ED_ITS ---
HPI - Chest Pain 2 General: Chief Complaint: Chest Pain Stated Complaint: CHEST PAIN Time Seen by Provider: 01/22/24 20:54 History of Present Illness: 38-year-old male patient presenting with chest discomfort. He says his chest started yesterday an argument. Has had it on and off since then. He says his left arm is benign as well. No shortness of breath currently, but he has had. He says that he has a history of a bad heart valve. No prior history of stents or coronary disease. Related Data Home Medications Medication Instructions Recorded Confirmed hydrocodone 7.5 mg-acetaminophen 1 tab PO QID PRN Pain 10/31/22 03/23/23 325 mg tablet cyclobenzaprine 10 mg tablet 10 mg PO Q8H 11/12/22 03/23/23 lisinopril 20 mg tablet 20 mg PO DAILY 11/12/22 03/23/23 Previous Rx's Medication Instructions Recorded diltiazem HCl 60 mg 60 mg PO BID #60 caps 11/12/22 capsule,extended release 12 hr nitroglycerin 0.4 mg sublingual See Rx Instructions .Route 02/24/23 tablet .COMPLEX #25 tabs cinacalcet 30 mg tablet 30 mg PO BID 90 days #180 tabs 03/25/23 buspirone 10 mg tablet 10 mg PO TID #90 tabs 12/02/23 Allergies Allergy/AdvReac Type Severity Reaction Status Date / Time baclofen Allergy Unknown Unknown Verified 01/22/24 20:54 bupropion Allergy Unknown Unknown Verified 01/22/24 20:54 fluoxetine Allergy Unknown Unknown Verified 01/22/24 20:54 unclassified drug Allergy Unknown Unknown Uncoded 01/22/24 20:54 PFSH ED 2 PFSH: Medical History Lumbar disc disease with radiculopathy Social History Smoking and tobacco/nicotine status: former use of tobacco/nicotine Quit status (tobacco/nicotine): has quit using Household members: significant other Physical Exam 2 Const: COMMON NORMALS: no acute distress GENERAL APPEARANCE: cooperative; not ill appearing and not frail appearing HENMT: COMMON NORMALS: normocephalic, atraumatic and Normal external nose present HEAD & SCALP: normocephalic and atraumatic FACE & SINUS: normal facial exam and face symmetric NOSE: Normal external nose present Eye: COMMON NORMALS: Equal, round and reactive pupils present and EOMs intact bilaterally PUPIL: Yes Equal, round and reactive pupils present Neck/C-Spine: GENERAL: Yes trachea midline Chest: CHEST: Yes Symmetrical chest wall rise Resp: COMMON NORMALS: normal respiratory effort, No retractions, No use of accessory muscles and clear to auscultation bilaterally AUSCULTATION: clear to auscultation bilaterally Cardio: COMMON NORMALS: regular rate and regular rhythm RATE: regular rate RHYTHM: regular rhythm GI: COMMON NORMALS: Normal to inspection, nondistended, normoactive bowel sounds present Extremity: COMMON NORMALS: no pedal edema Neuro: ANDREA COMA SCALE: document GCS findings Andrea coma scale eye opening: Spontaneous Bertrand coma scale verbal response: Orientated Andrea coma scale motor response: Obey commands Bertrand coma scale total score: 15 S ENSORY EXAM: Yes extremities (intact) Psych: COMMON NORMALS: speech normal SPEECH: Yes normal speech Skin: COMMON NORMALS: no rashes or lesions noted GENERAL SKIN EXAM: no rashes or lesions noted Course 2 Vital Signs: Vital signs: Vital Signs Temperature 97.9 F 01/22/24 20:55 Pulse Rate 67 01/22/24 22:27 Respiratory Rate 18 01/22/24 21:49 Blood Pressure 176/83 01/22/24 22:27 Pulse Oximetry 97 01/22/24 22:27 Oxygen Delivery Me thod Room Air 01/22/24 21:49 MDM - Chest Pain Medical Decision Making Pain for more than 24 hours patient with no areas on catheterization a year ago. His hemoglobin is 17. His white blood cell count is 11.5. His other laboratory markers are unremarkable. His troponin is less than 6. His BNP is nondetectable. His chest x-ray is normal. He will be allowed discharge. Lab Data 01/22/24 21:00 01/22/24 21:00 Radiology Impressions Chest X-Ray 01/22/24 21:08 IMPRESSION: No acute findings. Laboratory Results WBC 11.50 10^3/uL (3.29-11.43) H 01/22/24 21:00 RBC 5.93 10^6/uL (3.85-5.65) H 01/22/24 21:00 Hgb 17.00 g/dL (11.27-16.99) H 01/22/24 21:00 Hct 51.6 % (37-53) 01/22/24 21:00 MCV 87.0 fl (82-101) 01/22/24 21:00 MCH 28.7 pg (27-33) 01/22/24 21:00 MCHC 32.9 g/dL (30-55) 01/22/24 21:00 RDW 13.4 % (12.1-15.1) 01/22/24 21:00 Plt Count 249 10^3/cmm (157-399) 01/22/24 21:00 MPV 9.2 fL (7.4-10.4) 01/22/24 21:00 Neut % (Auto) 56.9 % 01/22/24 21:00 Lymph % (Auto) 32.3 % 01/22/24 21:00 [place] % (Auto) 6.5 % 01/22/24 21:00 Eos % (Auto) 3.2 % 01/22/24 21:00 Baso % (Auto) 0.8 % 01/22/24 21:00 Neut # (Auto) 6.55 10^3/uL (1.8-7.7) 01/22/24 21:00 Lymph # (Auto) 3.7 10^3/uL (0.8-4.8) 01/22/24 21:00 [place] # (Auto) 0.8 10^3/uL (0.2-0.9) 01/22/24 21:00 Eos # (Auto) 0.4 10^3/uL (0.0-0.8) 01/22/24 21:00 Baso # (Auto) 0.1 10^3/uL (0.0-0.1) 01/22/24 21:00 Nucleated RBC % (auto) 0 % 01/22/24 21:00 Nucleated RBCs # 0.0 /100WBC 01/22/24 21:00 PT 12.60 SECONDS (12.1-14.9) 01/22/24 21:00 INR 0.91 (0.8-1.2) 01/22/24 21:00 APTT 27.0 SECONDS (23.9-36.7) 01/22/24 21:00 Sodium 140 mmol/L (136-145) 01/22/24 21:00 Potassium 3.9 mmol/L (3.5-5.1) 01/22/24 21:00 Chloride 105 mmol/L (98-107) 01/22/24 21:00 Carbon Dioxide 25 mmol/L (22-29) 01/22/24 21:00 Anion Gap 13.9 (5-19) 01/22/24 21:00 BUN 13 mg/dL (6-20) 01/22/24 21:00 Creatinine 0.8 mg/dL (0.7-1.2) 01/22/24 21:00 GFR Calculation 108.8 mL/min (90-130) 01/22/24 21:00 Glucose 107 mg/dL (65-115) 01/22/24 21:00 Calculated Osmolality 291 mOsm/kg (285-295) 01/22/24 21:00 Calcium 11.0 mg/dL (8.5-10.5) H 01/22/24 21:00 Total Bilirubin 0.2 mg/dL (0.15-1.2) 01/22/24 21:00 AST 15 U/L (0-40) 01/22/24 21:00 ALT 22 U/L (0-41) 01/22/24 21:00 Alkaline Phosphatase 99 U/L (40-130) 01/22/24 21:00 Troponin T Baseline < 6 ng/L (0-15) 01/22/24 21:00 NT-Pro-B Natriuret Pep < 36 pg/mL (0-125) 01/22/24 21:00 Total Protein 7.2 g/dL (6.6-8.7) 01/22/24 21:00 Albumin 4.4 g/dL (3.5-5.2) 01/22/24 21:00 Globulin 2.8 g/dL (1.3-4.6) 01/22/24 21:00 All radiology interpretation(s) finalized by discharge Discharge Plan Discharge Patient Disposition: Home Clinical Impression: Chest pain Condition: Stable Prescriptions: No Action cyclobenzaprine 10 mg tablet 10 mg PO Q8H lisinopril 20 mg tablet 20 mg PO DAILY diltiazem HCl 60 mg capsule,extended release 12 hr 60 mg PO BID Qty: 60 1RF Rx Instructions: monitor heart rate nitroglycerin 0.4 mg tablet, sublingual See Rx Instructions .ROUTE .COMPLEX Qty: 25 0RF Dose Instruction: TAKE 1 TABLET SUBLINGUALLY EVERY 5 MINUTES NEEDED FOR CHEST PAIN DO NOT EXCEED 3 DOSES PER EPISODE Rx Instructions: TAKE 1 TABLET SUBLINGUALLY EVERY 5 MINUTES NEEDED FOR CHEST PAIN DO NOT EXCEED 3 DOSES PER EPISODE cinacalcet 30 mg tablet 30 mg PO BID 90 Days Qty: 180 0RF buspirone 10 mg tablet 10 mg PO TID Qty: 90 0RF hydrocodone-acetaminophen 7.5-325 mg tablet 1 tab PO QID PRN (Reason: Pain) Discharge Orders: Discharge ED (Routine); Ordered 01/22/24 Ordered By: Ezequiel Norman Patient Instructions: Chest Pain (ED), Opioid Safety, Pain Management Coding Level of Care Code ED Learning And Development Officer for Juan Jose Lima
[2024-01-22 22:27] VITALS: BP 176/83; PULSE 67; O2SAT 97
== END 2024-01-22 22:29 | disposition home or self-care (01) ==
PROVIDERS: Emergency Provider Emergency Medicine
DX: R07.9 Chest pain, unspecified (principal); Z87.891 Personal history of nicotine dependence
CPT/HCPCS: 71045; 80053; 83880; 84484; 85025; 85610; 85730; 93005; 99285

== ENCOUNTER 2024-01-28 17:25 | Emergency (ER) | payer OTHER, SELFPAY ==
--- NOTE | 2024-01-28 17:30 | ECG_ITS ---
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 Measurements Intervals [place] Rate: 73 P: 53 ME: 176 QRS: 2 QRSD: 102 T: 36 QT: 381 QTc: 420 Interpretive Statements SINUS RHYTHM Compared to ECG 01/22/2024 20:55:31 Sinus arrhythmia no longer present Electronically Signed On 01-28-2024 22:34:51 VENDOR RELATIONSHIP MANAGER by Pamella Mosqueda M.D. [id number] f
[2024-01-28 17:33] VITALS: BP 143/84; PULSE 74; RESP 18; TEMP 36.7; O2SAT 96
--- NOTE | 2024-01-28 17:35 | XRR_ITS ---
PROCEDURE INFORMATION: Exam: XR Chest Exam date and time: 01/28/2024 6:00 PM Age: 38 years old Clinical indication: Pain; Chest pressure; Additional info: Cp TECHNIQUE: Imaging protocol: Radiologic exam of the chest. Views: 1 view. COMPARISON: CR (CHEST, ) 01/22/2024 9:24 PM FINDINGS: Lungs: Unremarkable. No consolidation. Pleural spaces: Unremarkable. No pleural effusion. No pneumothorax. Heart/Mediastinum: Unremarkable. No cardiomegaly. Bones/joints: Unremarkable. XR/XR chest 1V portable [id number] IMPRESSION: No acute findings.
[2024-01-28 18:00] LABS: Basophils # 0.1 10^3/uL (0.0-0.1); Basophils % 0.8 %; Eosinophils # 0.4 10^3/uL (0.0-0.8); Eosinophils % 3.6 %; Hematocrit 49.1 % (37-53); Lymphocytes # 2.5 10^3/uL (0.8-4.8); Lymphocytes % 24.3 %; Mean Corpuscular HGB Conc 33.8 g/dL (30-55); Mean Corpuscular Hemoglobin 28.9 pg (27-33); Mean Corpuscular Volume 85.5 fl (82-101); Monocytes # 0.6 10^3/uL (0.2-0.9); Monocytes % 6.1 %; Neutrophils # 6.58 10^3/uL (1.8-7.7); Nucleated Red Blood Cells % 0 %; Platelet Count 243 10^3/cmm (157-399); Red Blood Count 5.74 10^6/uL (3.85-5.65); Red Cell Distribution Width 13.3 % (12.1-15.1); White Blood Count 10.12 10^3/uL (3.29-11.43)
[2024-01-28 18:18] LABS: Alanine Aminotransferase 19 U/L (0-41); Albumin Level 4.1 g/dL (3.5-5.2); Alkaline Phosphatase 94 U/L (40-130); Anion Gap 12.2 (5-19); Aspartate Amino Transferase 16 U/L (0-40); Blood Urea Nitrogen 16 mg/dL (6-20); Carbon Dioxide 26 mmol/L (22-29); Chloride 104 mmol/L (98-107); Globulin 2.5 g/dL (1.3-4.6); Glomerular Filtration Rate 84.1 mL/min (90-130); Glucose 148 mg/dL (65-115); Lipase 41 U/L (13-60); Osmolality Calculated 290 mOsm/kg (285-295); Potassium 4.2 mmol/L (3.5-5.1); Sodium 138 mmol/L (136-145); Total Bilirubin 0.2 mg/dL (0.15-1.2); Total Protein 6.6 g/dL (6.6-8.7)
[2024-01-28 18:21] LABS: Troponin(5th) Baseline 8 ng/L (0-15)
[2024-01-28] MEDS: ketorolac 60 mg/2 mL INJ IM (18:40)
[2024-01-28 18:42] VITALS: BP 103/73; PULSE 68; RESP 20; O2SAT 97
--- NOTE | 2024-01-28 19:09 | ED_ITS ---
HPI - Chest Pain 2 General: Chief Complaint: Chest Pain Stated Complaint: chest pain Time Seen by Provider: 01/28/24 17:38 History of Present Illness: Patient presents to the ER with complaints of chest pain radiates down his left arm. This been going off and on for about a week. It gets better or gets worse or is not no known cause. Patient does say when he gets agitated or anxious he worsens. Patient says his exact same thing that he was here for last week where he was worked up. Related Data Home Medications Medication Instructions Recorded Confirmed hydrocodone 7.5 mg-acetaminophen 1 tab PO QID PRN Pain 10/31/22 03/23/23 325 mg tablet cyclobenzaprine 10 mg tablet 10 mg PO Q8H 11/12/22 03/23/23 lisinopril 20 mg tablet 20 mg PO DAILY 11/12/22 03/23/23 Previous Rx's Medication Instructions Recorded diltiazem HCl 60 mg 60 mg PO BID #60 caps 11/12/22 capsule,extended release 12 hr nitroglycerin 0.4 mg sublingual See Rx Instructions .Route 02/24/23 tablet .COMPLEX #25 tabs cinacalcet 30 mg tablet 30 mg PO BID 90 days #180 tabs 03/25/23 buspirone 10 mg tablet 10 mg PO TID #90 tabs 12/02/23 Allergies Allergy/AdvReac Type Severity Reaction Status Date / Time baclofen Allergy Unknown Unknown Verified 01/22/24 20:54 bupropion Allergy Unknown Unknown Verified 01/22/24 20:54 fluoxetine Allergy Unknown Unknown Verified 01/22/24 20:54 unclassified drug Allergy Unknown Unknown Uncoded 01/22/24 20:54 Review of Systems 2 General: Reports: 10 or more systems reviewed and unremarkable except in HPI and below PFSH ED 2 PFSH: Medical History Lumbar disc disease with radiculopathy Social History Smoking and tobacco/nicotine status: former use of tobacco/nicotine Quit status (tobacco/nicotine): has quit using Household members: significant other Physical Exam 2 Const: COMMON NORMALS: no acute distress, average body habitus, patient oriented x3, no limitations, healthy appearing, alert and well nourished HENMT: COMMON NORMALS: normocephalic, atraumatic, hearing grossly normal bilaterally, external ears normal, Normal external nose present and moist oral mucous membranes HEAD & SCALP: normocephalic and atraumatic NOSE: Normal external nose present EXTERNAL EAR: Yes external ears normal Neck/C-Spine: COMMON NORMALS: no JVD Chest: COMMONS NORMALS: normal inspection of the chest and normal palpation of entire chest wall Resp: COMMON NORMALS: normal respiratory effort, No retractions, No use of accessory muscles and clear to auscultation bilaterally AUSCULTATION: clear to auscultation bilaterally Cardio: COMMON NORMALS: no JVD, regular rate, regular rhythm, S1 normal heart sound present, S2 normal heart sound present, No gallops present (Cardio), No clicks present (Cardio), No murmurs present (Cardio) and No rub (Cardio) R ATE: regular rate RHYTHM: regular rhythm HEART SOUNDS: S1 normal heart sound present and S2 normal heart sound present GI: COMMON NORMALS: Normal to inspection, nondistended, normoactive bowel sounds present, Soft to palpation, non-tender and No hepatosplenomegaly present PALPATION: Yes Soft to palpation and Yes No hepatosplenomegaly present Neuro: COMMON NORMALS: patient oriented x3 SENSORIUM/ORIENTATION: Yes alert Course 2 Vital Signs: Vital signs: Vital Signs Temperature 98.1 F 01/28/24 17:33 Pulse Rate 58 L 01/28/24 19:27 Respiratory Rate 18 01/28/24 19:27 Blood Pressure 136/77 01/28/24 19:27 Pulse Oximetry 96 01/28/24 19:27 Oxygen Delivery Me thod Room Air 01/28/24 19:11 MDM - Chest Pain Medical Decision Making Patient was worked up for his chest pain has been going on for over a week. Reviewed the last visit where had a insignificant troponin, this time his troponin is 8 and all other imaging and lab is unremarkable as well. [facility] Medical Records I reviewed the patient's medical records. Lab Data I reviewed the patient's lab results. 01/28/24 17:47 01/28/24 17:47 Radiology Impressions Chest X-Ray 01/28/24 17:35 IMPRESSION: No acute findings. Laboratory Results WBC 10.12 10^3/uL (3.29-11.43) 11/15/24 17:47 RBC 5.74 10^6/uL (3.85-5.65) H 01/28/24 17:47 Hgb 16.60 g/dL (11.27-16.99) 01/28/24 17:47 Hct 49.1 % (37-53) 01/28/24 17:47 MCV 85.5 fl (82-101) 01/28/24 17:47 MCH 28.9 pg (27-33) 01/28/24 17:47 MCHC 33.8 g/dL (30-55) 01/28/24 17:47 RDW 13.3 % (12.1-15.1) 01/28/24 17:47 Plt Count 243 10^3/cmm (157-399) 01/28/24 17:47 MPV 9.0 fL (7.4-10.4) 01/28/24 17:47 Neut % (Auto) 65.0 % 01/28/24 17:47 Lymph % (Auto) 24.3 % 01/28/24 17:47 [place] % (Auto) 6.1 % 01/28/24 17:47 Eos % (Auto) 3.6 % 01/28/24 17:47 Baso % (Auto) 0.8 % 01/28/24 17:47 Neut # (Auto) 6.58 10^3/uL (1.8-7.7) 01/28/24 17:47 Lymph # (Auto) 2.5 10^3/uL (0.8-4.8) 01/28/24 17:47 [place] # (Auto) 0.6 10^3/uL (0.2-0.9) 01/28/24 17:47 Eos # (Auto) 0.4 10^3/uL (0.0-0.8) 01/28/24 17:47 Baso # (Auto) 0.1 10^3/uL (0.0-0.1) 01/28/24 17:47 Nucleated RBC % (auto) 0 % 01/28/24 17:47 Nucleated RBCs # 0.0 /100WBC 01/28/24 17:47 Sodium 138 mmol/L (136-145) 01/28/24 17:47 Potassium 4.2 mmol/L (3.5-5.1) 01/28/24 17:47 Chloride 104 mmol/L (98-107) 01/28/24 17:47 Carbon Dioxide 26 mmol/L (22-29) 01/28/24 17:47 Anion Gap 12.2 (5-19) 01/28/24 17:47 BUN 16 mg/dL (6-20) 01/28/24 17:47 Creatinine 1.0 mg/dL (0.7-1.2) 01/28/24 17:47 GFR Calculation 84.1 mL/min (90-130) L 01/28/24 17:47 Glucose 148 mg/dL (65-115) H 01/28/24 17:47 Calculated Osmolality 290 mOsm/kg (285-295) 01/28/24 17:47 Calcium 11.0 mg/dL (8.5-10.5) H 01/28/24 17:47 Total Bilirubin 0.2 mg/dL (0.15-1.2) 01/28/24 17:47 AST 16 U/L (0-40) 01/28/24 17:47 ALT 19 U/L (0-41) 01/28/24 17:47 Alkaline Phosphatase 94 U/L (40-130) 01/28/24 17:47 Troponin T Baseline 8 ng/L (0-15) 01/28/24 17:47 Total Protein 6.6 g/dL (6.6-8.7) 01/28/24 17:47 Albumin 4.1 g/dL (3.5-5.2) 01/28/24 17:47 Globulin 2.5 g/dL (1.3-4.6) 01/28/24 17:47 Lipase 41 U/L (13-60) 01/28/24 17:47 All radiology interpretation(s) finalized by discharge Discharge Plan Discharge Patient Disposition: Home Clinical Impression: Chest pain Qualifiers: Chest pain type: unspecified Qualified Code(s): R07.9 - Chest pain, unspecified Condition: Stable Prescriptions: No Action cyclobenzaprine 10 mg tablet 10 mg PO Q8H lisinopril 20 mg tablet 20 mg PO DAILY diltiazem HCl 60 mg capsule,extended release 12 hr 60 mg PO BID Qty: 60 1RF Rx Instructions: monitor heart rate nitroglycerin 0.4 mg tablet, sublingual See Rx Instructions .ROUTE .COMPLEX Qty: 25 0RF Dose Instruction: TAKE 1 TABLET SUBLINGUALLY EVERY 5 MINUTES NEEDED FOR CHEST PAIN DO NOT EXCEED 3 DOSES PER EPISODE Rx Instructions: TAKE 1 TABLET SUBLINGUALLY EVERY 5 MINUTES NEEDED FOR CHEST PAIN DO NOT EXCEED 3 DOSES PER EPISODE cinacalcet 30 mg tablet 30 mg PO BID 90 Days Qty: 180 0RF buspirone 10 mg tablet 10 mg PO TID Qty: 90 0RF hydrocodone-acetaminophen 7.5-325 mg tablet 1 tab PO QID PRN (Reason: Pain) Discharge Orders: Discharge ED (Routine); Ordered 01/28/24 Ordered By: Gorge Hanson Patient Instructions: Chest Pain (ED) Activity Restrictions/Additional Instructions: Thank you for choosing [facility] for your healthcare needs today. Please realize that you were seen in the emergency department and that we are providing you with an emergency medical screening exam and this may not be a complete and all exclusive of all testing and/or medical workup we may need to determine your element or severity of your illness. It is very important that you follow-up as instructed with your primary care provider or specialist for the additional evaluation and to discuss your medical treatment plan. You may return to the emergency department should you have concerns or if your condition changes or worsens in any way. Coding Level of Care Code ED Clinical Product Manager for Juan Jose Lima
[2024-01-28 19:11] VITALS: BP 95/64; PULSE 56; O2SAT 96
[2024-01-28 19:27] VITALS: BP 136/77; PULSE 58; RESP 18; O2SAT 96
== END 2024-01-28 19:28 | disposition home or self-care (01) ==
PROVIDERS: Emergency Medicine; Emergency Provider Emergency Medicine
DX: R07.9 Chest pain, unspecified (principal); Z87.891 Personal history of nicotine dependence
CPT/HCPCS: 36415; 71045; 80053; 83690; 84484; 85025; 93005; 96372; 99285; J1885

== ENCOUNTER 2024-05-10 19:31 | Emergency (ER) | payer OTHER, MEDICARE, SELFPAY ==
--- NOTE | 2024-05-10 19:32 | XRR_ITS ---
PROCEDURE INFORMATION: Exam: XR Chest Exam date and time: 05/10/2024 7:46 PM Age: 38 years old Clinical indication: Pain; Chest pressure; Additional info: Cp TECHNIQUE: Imaging protocol: Radiologic exam of the chest. Views: 1 view. COMPARISON: CR XR chest 1V portable [id number] 01/28/2024 6:00 PM FINDINGS: Lungs: Unremarkable. No consolidation. Pleural spaces: Unremarkable. No pleural effusion. No pneumothorax. Heart/Mediastinum: Unremarkable. No cardiomegaly. Bones/joints: Unremarkable. XR/XR chest 1V portable [id number] IMPRESSION: No acute findings.
[2024-05-10 19:35] VITALS: BP 126/71; PULSE 65; RESP 18; TEMP 36.7; O2SAT 93; BMI 28.8
--- NOTE | 2024-05-10 19:35 | ED_ITS ---
HPI - Chest Pain 2 General: Chief Complaint: Chest Pain Stated Complaint: cp Time Seen by Provider: 05/10/24 19:31 Source: patient and EMS Mode of arrival: EMS Limitations: no limitations History of Present Illness: 38-year-old male is here from [facility] he has had issues with chronic chest pain states having chest pain at the nursing home tonight at 530 that is a sharp pain pain has improved here. He denies any shortness of breath denies any vomiting or diarrhea. Rates his pain currently 1 out of 10 Associated symptoms: Deny abdominal pain, dyspnea, fever(s), nausea or vomiting Related Data Home Medications ?Medication ?Instructions ?Recorded ?Confirmed hydrocodone 7.5 mg-acetaminophen 1 tab PO QID PRN Pain 10/31/22 03/23/23 325 mg tablet cyclobenzaprine 10 mg tablet 10 mg PO Q8H 11/12/2212/06 lisinopril 20 mg tablet 20 mg PO DAILY 11/12/2212/06 Previous Rx's ?Medication ?Instructions ?Recorded diltiazem HCl 60 mg 60 mg PO BID #60 caps capsule,extended release 12 hr nitroglycerin 0.4 mg sublingual See Rx Instructions .R oute 02/24/23 tablet .COMPLEX #25 tabs cinacalcet 30 mg tablet 30 mg PO BID 90 days #180 ta bs 03/25/23 buspirone 10 mg tablet 10 mg PO TID #90 tabs Allergies Allergy/AdvReac Type Severity Reaction Status Date / Time baclofen Allergy Unknown Unknown Verified 05/10/24 19:41 bupropion Allergy Unknown Unknown Verified 05/10/24 19:41 fluoxetine Allergy Unknown Unknown Verified 05/10/24 19:41 unclassified drug Allergy Unknown Unknown Uncoded 05/10/24 19:41 Review of Systems 2 Const: Denies: fever(s), chills, body aches or change in appetite ENMT: Denies: throat pain or dental pain Card: Reports: chest pain Resp: Denies: dyspnea GI: Denies: abdominal pain, nausea, vomiting or diarrhea Musc: Denies: neck pain or back pain Skin/Breast: Denies: rash Neuro: Denies: headache(s) PFSH ED 2 PFSH: Medical History Lumbar disc disease with radiculopathy Social History Smoking and tobacco/nicotine status: former use of tobacco/nicotine Quit status (tobacco/nicotine): has quit using Household members: significant other Physical Exam 2 Const: COMMON NORMALS: no acute distress, patient oriented x3 and healthy appearing HENMT: COMMON NORMALS: normocephalic and atraumatic HEAD & SCALP: n ormocephalic and atraumatic Eye: COMMON NORMALS: conjunctivae normal CONJUNCTIVA: Yes conjunctivae normal Neck/C-Spine: COMMON NORMALS: full ROM and supple Chest: COMMONS NORMALS: normal inspection of the chest Resp: COMMON NORMALS: normal respiratory effort, No retractions, No use of accessory muscles and clear to auscultation bilaterally AUSCULTATION: clear to auscultation bilaterally Cardio: COMMON NORMALS: regular rate, regular rhythm and No murmurs present (Cardio) RATE: regular rate RHYTHM: regular rhythm GI: COMMON NORMALS: Normal to inspection, nondistended, normoactive bowel sounds present, Soft to palpation, non-tender and no masses PALPATION: Yes Soft to palpation Extremity: COMMON NORMALS: normal to inspection and full ROM Neuro: COMMON NORMALS: patient oriented x3, moves all extremities and no focal motor deficits Psych: COMMON NORMALS: mental status grossly normal, Normal thought process present and cooperative THOUGHT PROCESS: Normal thought process present Skin: COMMON NORMALS: no rashes or lesions noted and no wounds GENERAL SKIN EXAM: no rashes or lesions noted Course 2 Vital Signs: Vital signs: Vital Signs Temperature 98.0 F 05/10/24 19:35 Pulse Rate 65 05/10/24 19:35 Respiratory Rate 18 05/10/24 19:35 Blood Pressure 126/71 05/10/24 19:35 Pulse Oximetry 93 05/10/24 19:35 Oxygen Delivery Me thod Room Air 05/10/24 19:35 MDM - Chest Pain Medical Decision Making Patient presents with chest pains atypical in nature he has been well-appearing here he ate a sandwich having no pain here troponins negative mild elevation of lipase but CT showed no pancreatitis he is had no pain here he stable for discharge back to the nursing home. Medical Records I reviewed the patient's medical records. Lab Data I reviewed the patient's lab results. 05/10/24 19:49 05/10/24 19:49 Radiology Impressions Chest X-Ray 05/10/24 19:32 IMPRESSION: No acute findings. Laboratory Results WBC 13.83 10^3/uL (3.29-11.43) H 05/10/24 19:49 RBC 5.49 10^6/uL (3.85-5.65) 05/10/24 19:49 Hgb 16.10 g/dL (11.27-16.99) 05/10/24 19:49 Hct 49.7 % (37-53) 05/10/24 19:49 MCV 90.5 fl (82-101) 05/10/24 19:49 MCH 29.3 pg (27-33) 05/10/24 19:49 MCHC 32.4 g/dL (30-55) 05/10/24 19:49 RDW 12.5 % (12.1-15.1) 05/10/24 19:49 Plt Count 234 10^3/cmm (157-399) 05/10/24 19:49 MPV 9.4 fL (7.4-10.4) 05/10/24 19:49 Neut % (Auto) 72.9 % 05/10/24 19:49 Lymph % (Auto) 19.2 % 05/10/24 19:49 [place] % (Auto) 4.7 % 05/10/24 19:49 Eos % (Auto) 2.5 % 05/10/24 19:49 Baso % (Auto) 0.4 % 05/10/24 19:49 Neut # (Auto) 10.09 10^3/uL (1.8-7.7) H 05/10/24 19:49 Lymph # (Auto) 2.7 10^3/uL (0.8-4.8) 05/10/24 19:49 [place] # (Auto) 0.7 10^3/uL (0.2-0.9) 05/10/24 19:49 Eos # (Auto) 0.3 10^3/uL (0.0-0.8) 05/10/24 19:49 Baso # (Auto) 0.1 10^3/uL (0.0-0.1) 05/10/24 19:49 Nucleated RBC % (auto) 0 % 05/10/24 19:49 Nucleated RBCs # 0.0 /100WBC 05/10/24 19:49 Sodium 142 mmol/L (136-145) 05/10/24 19:49 Potassium 4.4 mmol/L (3.5-5.1) 05/10/24 19:49 Chloride 110 mmol/L (98-107) H 05/10/24 19:49 Carbon Dioxide 21 mmol/L (22-29) L 05/10/24 19:49 Anion Gap 15.4 (5-19) 05/10/24 19:49 BUN 10 mg/dL (6-20) 05/10/24 19:49 Creatinine 0.9 mg/dL (0.7-1.2) 05/10/24 19:49 GFR Calculation 95.0 mL/min (90-130) 05/10/24 19:49 Glucose 90 mg/dL (65-115) 05/10/24 19:49 Calculated Osmolality 293 mOsm/kg (285-295) 05/10/24 19:49 Calcium 10.3 mg/dL (8.5-10.5) 05/10/24 19:49 Total Bilirubin 0.3 mg/dL (0.15-1.2) 05/10/24 19:49 AST 22 U/L (0-40) 05/10/24 19:49 ALT 37 U/L (0-41) 05/10/24 19:49 Alkaline Phosphatase 86 U/L (40-130) 05/10/24 19:49 Troponin T Baseline < 6 ng/L (0-15) 05/10/24 19:49 Total Protein 6.2 g/dL (6.6-8.7) L 05/10/24 19:49 Albumin 4.1 g/dL (3.5-5.2) 05/10/24 19:49 Globulin 2.1 g/dL (1.3-4.6) 05/10/24 19:49 Lipase 171 U/L (13-60) H 05/10/24 19:49 All radiology interpretation(s) finalized by discharge EKG Data EKG 1: I personally reviewed and interpreted this EKG as follows: EKG interpretation date: 05/10/24 EKG interpretation time: 19:41 Interpretation: nsr hr [address] elevation qrs 98 qtc 381 Clincial Decision Support The following clinical decision support tools were used to aid in care of the patient HEART Score -> History: Slightly Suspicous, EKG: Normal, Age: Less than 45 yrs, Risk Factors: No Risk Factors Known, Troponin: Baseline Trop <16 ng/L. Resulting HEART Score: 0. Discharge Plan Discharge Patient Disposition: Home Clinical Impression: Chest pain Condition: Stable Prescriptions: No Action cyclobenzaprine 10 mg tablet 10 mg PO Q8H lisinopril 20 mg tablet 20 mg PO DAILY diltiazem HCl 60 mg capsule,extended release 12 hr 60 mg PO BID Qty: 60 1RF Rx Instructions: monitor heart rate nitroglycerin 0.4 mg tablet, sublingual See Rx Instructions .ROUTE .COMPLEX Qty: 25 0RF Dose Instruction: TAKE 1 TABLET SUBLINGUALLY EVERY 5 MINUTES NEEDED FOR CHEST PAIN DO NOT EXCEED 3 DOSES PER EPISODE Rx Instructions: TAKE 1 TABLET SUBLINGUALLY EVERY 5 MINUTES NEEDED FOR CHEST PAIN DO NOT EXCEED 3 DOSES PER EPISODE cinacalcet 30 mg tablet 30 mg PO BID 90 Days Qty: 180 0RF buspirone 10 mg tablet 10 mg PO TID Qty: 90 0RF hydrocodone-acetaminophen 7.5-325 mg tablet 1 tab PO QID PRN (Reason: Pain) Discharge Orders: Discharge ED (Routine); Ordered 05/10/24 Ordered By: Carina De Leon Discharge Diet: Advance as tolerated Discharge Activity: Resume usual activity Patient Instructions: Chest Pain (ED) Print Language: Persian Coding Level of Care Code ED [employer] Supervisor for Juan Jose Lima
--- NOTE | 2024-05-10 19:41 | ECG_ITS ---
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
[2024-05-10 19:56] LABS: Basophils # 0.1 10^3/uL (0.0-0.1); Basophils % 0.4 %; Eosinophils # 0.3 10^3/uL (0.0-0.8); Eosinophils % 2.5 %; Hematocrit 49.7 % (37-53); Lymphocytes # 2.7 10^3/uL (0.8-4.8); Lymphocytes % 19.2 %; Mean Corpuscular HGB Conc 32.4 g/dL (30-55); Mean Corpuscular Hemoglobin 29.3 pg (27-33); Mean Corpuscular Volume 90.5 fl (82-101); Mean Platelet Volume 9.4 fL (7.4-10.4); Monocytes # 0.7 10^3/uL (0.2-0.9); Monocytes % 4.7 %; Neutrophils # 10.09 10^3/uL (1.8-7.7); Neutrophils % 72.9 %; Nucleated Red Blood Cells % 0 %; Platelet Count 234 10^3/cmm (157-399); Red Blood Count 5.49 10^6/uL (3.85-5.65); Red Cell Distribution Width 12.5 % (12.1-15.1); White Blood Count 13.83 10^3/uL (3.29-11.43)
[2024-05-10 20:15] LABS: Troponin(5th) Baseline < 6 ng/L (0-15)
[2024-05-10 20:16] LABS: Alanine Aminotransferase 37 U/L (0-41); Albumin Level 4.1 g/dL (3.5-5.2); Alkaline Phosphatase 86 U/L (40-130); Aspartate Amino Transferase 22 U/L (0-40); Blood Urea Nitrogen 10 mg/dL (6-20); Calcium 10.3 mg/dL (8.5-10.5); Carbon Dioxide 21 mmol/L (22-29); Chloride 110 mmol/L (98-107); Creatinine Clr Calc Pharmacy 120.0287; Globulin 2.1 g/dL (1.3-4.6); Glucose 90 mg/dL (65-115); Lipase 171 U/L (13-60); Osmolality Calculated 293 mOsm/kg (285-295); Sodium 142 mmol/L (136-145); Total Bilirubin 0.3 mg/dL (0.15-1.2); Total Protein 6.2 g/dL (6.6-8.7)
[2024-05-10 20:21] LABS: Anion Gap 15.4 (5-19); Potassium 4.4 mmol/L (3.5-5.1)
--- NOTE | 2024-05-10 20:27 | CTR_ITS ---
PROCEDURE INFORMATION: Exam: CT Abdomen And Pelvis With Contrast Exam date and time: 05/10/2024 8:45 PM Age: 38 years old Clinical indication: Abdominal pain; Generalized; Additional info: Abd pain TECHNIQUE: Imaging protocol: Computed tomography of the abdomen and pelvis with contrast. Radiation optimization: All CT scans at this facility use at least one of these dose optimization techniques: automated exposure control; mA and/or kV adjustment per patient size (includes targeted exams where dose is matched to clinical indication); or iterative reconstruction. Contrast material: OMNIPAQUE 350; Contrast volume: 100 ml; Contrast route: INTRAVENOUS (IV); COMPARISON: CR (CHEST, ) 05/10/2024 7:46 PM RADIATION DOSE METRICS: Total DLP (mGy-cm): 841.83 FINDINGS: Liver: No acute abnormality. No mass. Gallbladder and biliary ducts: No acute abnormality. No calcified stones. No ductal dilation. Pancreas: No acute abnormality. No ductal dilation. Spleen: No acute abnormality. Adrenal glands: No significant or acute abnormality. Kidneys and ureters: Tiny punctate non-obstructing left renal lower pole calculus. No hydronephrosis or hydroureter. Stomach and bowel: Ingested contents within stomach. No significant or disproportionate large or small bowel distention. Moderate amount of gas and stool within the colon. No evidence of diverticulitis. Appendix: No findings to suggest acute appendicitis. Intraperitoneal space: No significant fluid collection. No free air. Vasculature: No acute abnormality. No abdominal aortic aneurysm. Lymph nodes: No enlarged lymph nodes. Urinary bladder: Unremarkable as visualized. Reproductive: Unremarkable as visualized. Bones/joints: Bilateral L4 spondylolysis with mild anterolisthesis. Slight L5 retrolisthesis. Lower lumbar degenerative changes. Soft tissues: No significant soft tissue abnormalities. CT/CT abdomen pelvis w con* [id number] IMPRESSION: 1. Tiny punctate non-obstructing left renal lower pole calculus. 2. Additional findings as described above.
[2024-05-10] MEDS: sodium chloride 0.9% 1,000 ML 999 ML IV (20:40)
[2024-05-10] MEDS: morphine 4 mg/mL SDV 1 mL IVP (20:40)
[2024-05-10] MEDS: ondansetron 2 mg/ML SDV 2 mL 4 MG IVP (20:40)
[2024-05-10] MEDS: iohexol 350 mg/mL 500 mL Btl (per mL) IV (20:49)
[2024-05-10 21:56] VITALS: BP 119/69; PULSE 72; RESP 16; O2SAT 95
[2024-05-10 21:57] VITALS: BP 122/73; PULSE 68; O2SAT 96
== END 2024-05-10 21:58 | disposition home or self-care (01) ==
PROVIDERS: Emergency Provider Emergency Medicine
DX: R07.9 Chest pain, unspecified (principal); Z87.891 Personal history of nicotine dependence
CPT/HCPCS: 71045; 74177; 80053; 83690; 84484; 85025; 93005; 96361; 96374; 96375; 99285; J2270; J2405; J7030

== ENCOUNTER 2024-05-24 21:58 | Emergency (ER) | payer OTHER, SELFPAY ==
[2024-05-24 21:59] VITALS: BP 143/93; PULSE 72; RESP 18; TEMP 36.9; O2SAT 96; BMI 31.9
--- NOTE | 2024-05-24 22:03 | ECG_ITS ---
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 Measurements Intervals [place] Rate: 71 P: 29 MO: 163 QRS: 62 QRSD: 86 T: 49 QT: 357 QTc: 389 Interpretive Statements SINUS RHYTHM Compared to ECG 05/10/2024 19:41:15 No significant changes Electronically Signed On 05-26-2024 19:08:13 CDT by Woodrow Machuca M.D. [id number]
--- NOTE | 2024-05-24 22:11 | XRR_ITS ---
PROCEDURE INFORMATION: Exam: XR Chest Exam date and time: 05/24/2024 10:12 PM Age: 38 years old Clinical indication: Pain; Chest pressure; Additional info: Chest pain TECHNIQUE: Imaging protocol: Radiologic exam of the chest. Views: 1 view. COMPARISON: CR (CHEST, ) 05/10/2024 7:46 PM FINDINGS: Lungs: Unremarkable. No consolidation. Pleural spaces: Unremarkable. No pleural effusion. No pneumothorax. Heart/Mediastinum: Cardiomegaly. Bones/joints: Unremarkable. XR/XR chest 1V portable [id number] IMPRESSION: As above.
[2024-05-24 22:20] LABS: Basophils # 0.1 10^3/uL (0.0-0.1); Basophils % 0.8 %; Eosinophils # 0.5 10^3/uL (0.0-0.8); Eosinophils % 4.1 %; Hematocrit 48.9 % (37-53); Lymphocytes # 3.4 10^3/uL (0.8-4.8); Lymphocytes % 27.9 %; Mean Corpuscular HGB Conc 32.5 g/dL (30-55); Mean Corpuscular Hemoglobin 29.1 pg (27-33); Mean Corpuscular Volume 89.4 fl (82-101); Mean Platelet Volume 9.8 fL (7.4-10.4); Monocytes # 0.9 10^3/uL (0.2-0.9); Monocytes % 7.6 %; Neutrophils # 7.12 10^3/uL (1.8-7.7); Neutrophils % 59.2 %; Nucleated Red Blood Cells % 0 %; Platelet Count 228 10^3/cmm (157-399); Red Blood Count 5.47 10^6/uL (3.85-5.65); Red Cell Distribution Width 13.2 % (12.1-15.1); White Blood Count 12.05 10^3/uL (3.29-11.43)
--- NOTE | 2024-05-24 22:21 | PC.NURSE ---
Holding ordered medication at this time due to previous administration en route via EMS.
[2024-05-24] MEDS: lidocaine 2% viscous 15 ML, aluminum-mag hydrox-simethicon 30 ML, sucralfate oral liq 1 GM PO (23:08)
[2024-05-24 23:10] VITALS: BP 123/78; PULSE 73; O2SAT 95
[2024-05-24 23:33] LABS: Troponin(5th) Baseline < 6 ng/L (0-15)
[2024-05-24 23:42] LABS: Blood Urea Nitrogen 11 mg/dL (6-20); Carbon Dioxide 24 mmol/L (22-29); Chloride 105 mmol/L (98-107); Creatinine Clr Calc Pharmacy 125.7961; NT Pro B Type Natriuretic Pept < 36 pg/mL (0-125); Sodium 139 mmol/L (136-145)
[2024-05-24 23:43] LABS: Anion Gap 14.8 (5-19); Potassium 4.8 mmol/L (3.5-5.1)
[2024-05-25 00:04] LABS: Glucose 92 mg/dL (65-115); Osmolality Calculated 285 mOsm/kg (285-295)
[2024-05-25] MEDS: ketorolac 30 mg/mL INJ IVP (00:08)
[2024-05-25 00:49] LABS: Troponin 5 2HR Delta 0.00001 ABS# (0-10)
--- NOTE | 2024-05-25 00:55 | W.ED.CHESTPA ---
HPI - Chest Pain General: Chief Complaint: Chest Pain Stated Complaint: CP Time Seen by Provider: 05/24/24 22:02 History of Present Illness: This patient is a 38-year-old white male inmate who presents to the emergency department with chest pain. He states it started about 2 hours ago. States it feels like he was kicked in the chest by a horse. 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 He does see Dr. Loyola here. Patient states he needs an aortic valve replacement. Patient states his coronaries were normal. Other past medical history includes a traumatic brain injury and PTSD. Patient received 6 mg of morphine and route along with sublingual nitroglycerin and aspirin. Currently rates his pain a 5. Related Data Home Medications ?Medication ?Instructions ?Recorded ?Confirmed hydrocodone 7.5 mg-acetaminophen 1 tab PO QID PRN Pain 10/31/22 03/23/23 325 mg tablet cyclobenzaprine 10 mg tablet 10 mg PO Q8H 11/12/22 03/23/23 lisinopril 20 mg tablet 20 mg PO DAILY 11/12/22 03/23/23 Previous Rx's ?Medication ?Instructions ?Recorded diltiazem HCl 60 mg 60 mg PO BID #60 caps 11/12/22 capsule,extended release 12 hr nitroglycerin 0.4 mg sublingual See Rx Instructions .Route 02/24/23 tablet .COMPLEX #25 tabs cinacalcet 30 mg tablet 30 mg PO BID 90 days #180 tabs 03/25/23 buspirone 10 mg tablet 10 mg PO TID #90 tabs 12/02/23 Allergies Allergy/AdvReac Type Severity Reaction Status Date / Time baclofen Allergy Unknown Unknown Verified 05/10/24 19:41 bupropion Allergy Unknown Unknown Verified 05/10/24 19:41 fluoxetine Allergy Unknown Unknown Verified 05/10/24 19:41 unclassified drug Allergy Unknown Unknown Uncoded 05/10/24 19:41 Review of Systems General: Reports: 10 or more systems reviewed and unremarkable except in HPI and below Card: Reports: chest pain PFSH ED PFSH: Medical History Lumbar disc disease with radiculopathy Social History Smoking and tobacco/nicotine status: former use of tobacco/nicotine Quit status (tobacco/nicotine): has quit using Household members: significant other Physical Exam Const: COMMON NORMALS: no acute distress, patient oriented x3 and no limitations GENERAL APPEARANCE: cooperative and comfortable HENMT: COMMON NORMALS: normocephalic, atraumatic, Normal nasal mucous membranes and turbinates present, moist oral mucous membranes and oropharynx normal HEAD & SCALP: normal to inspection, normocephalic and atraumatic FACE & SINUS: normal facial exam NOSE: Normal nasal mucous membranes and turbinates present Eye: COMMON NORMALS: Equal, round and reactive pupils present, EOMs intact bilaterally and conjunctivae normal GENERAL EYE: appearance normal, both eyes and all related structures CONJUNCTIVA: Yes conjunctivae normal PUPIL: Yes Equal, round and reactive pupils present Neck/C-Spine: COMMON NORMALS: supple and no JVD Chest: COMMONS NORMALS: normal inspection of the chest Resp: COMMON NORMALS: normal respiratory effort and clear to auscultation bilaterally AUSCULTATION: clear to auscultation bilaterally Cardio: COMMON NORMALS: no JVD, regular rate, regular rhythm, No gallops present (Cardio), No murmurs present (Cardio) and No rub (Cardio) RATE: regular rate RHYTHM: regular rhythm GI: COMMON NORMALS: Normal to inspection, nondistended, normoactive bowel sounds present, Soft to palpation and non-tender AUSCULTATION: Yes normoactive bowel sounds PALPATION: Yes Soft to palpation : COMMON NORMALS: Yes no CVA tenderness BLADDER/KIDNEY EXAM: Yes no CVA tenderness Back/Pelvis: COMMON NORMALS: no CVA tenderness and thoracic and lumbar spine normal to inspection Extremity: COMMON NORMALS: normal to inspection Neuro: COMMON NORMALS: patient oriented x3 and CN's II-XII intact bilaterally Psych: COMMON NORMALS: mental status grossly normal, Normal thought process present and cooperative THOUGHT PROCESS: Normal thought process present Skin: COMMON NORMALS: no rashes or lesions noted, turgor normal and no jaundice GENERAL SKIN EXAM: no rashes or lesions noted and turgor normal Course Vital Signs: Vital signs: Vital Signs Temperature 98.5 F 05/24/24 21:59 Pulse Rate 73 05/24/24 23:10 Respiratory Rate 18 05/24/24 21:59 Blood Pressure 123/78 05/24/24 23:10 Pulse Oximetry 95 05/24/24 23:10 Oxygen Delivery Me thod Room Air 05/24/24 23:10 MDM - Chest Pain Medical Decision Making EKG revealed normal sinus rhythm with no ST segment abnormalities. Chest x-ray reveals mild cardiomegaly. CBC reveals white blood cell count of 12.1. BMP was normal. Baseline troponin was less than 6 with a 2-hour level of 6. BNP was less than 36. We did try GI cocktail which did not help. We then tried 30 mg of Toradol IV which did relieve his chest pain. 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 Lab Data 05/24/24 22:12 05/24/24 22:47 Radiology Impressions Chest X-Ray 05/24/24 22:11 IMPRESSION: As above. Laboratory Results WBC 12.05 10^3/uL (3.29-11.43) H 05/24/24 22:12 RBC 5.47 10^6/uL (3.85-5.65) 05/24/24 22:12 Hgb 15.90 g/dL (11.27-16.99) 05/24/24 22:12 Hct 48.9 % (37-53) 05/24/24 22:12 MCV 89.4 fl (82-101) 05/24/24 22:12 MCH 29.1 pg (27-33) 05/24/24 22:12 MCHC 32.5 g/dL (30-55) 05/24/24 22:12 RDW 13.2 % (12.1-15.1) 05/24/24 22:12 Plt Count 228 10^3/cmm (157-399) 05/24/24 22:12 MPV 9.8 fL (7.4-10.4) 05/24/24 22:12 Neut % (Auto) 59.2 % 05/24/24 22:12 Lymph % (Auto) 27.9 % 05/24/24 22:12 Bradford % (Auto) 7.6 % 05/24/24 22:12 Eos % (Auto) 4.1 % 05/24/24 22:12 Baso % (Auto) 0.8 % 05/24/24 22:12 Neut # (Auto) 7.12 10^3/uL (1.8-7.7) 05/24/24 22:12 Lymph # (Auto) 3.4 10^3/uL (0.8-4.8) 05/24/24 22:12 Bradford # (Auto) 0.9 10^3/uL (0.2-0.9) 05/24/24 22:12 Eos # (Auto) 0.5 10^3/uL (0.0-0.8) 05/24/24 22:12 Baso # (Auto) 0.1 10^3/uL (0.0-0.1) 05/24/24 22:12 Nucleated RBC % (auto) 0 % 05/24/24 22:12 Nucleated RBCs # 0.0 /100WBC 05/24/24 22:12 Sodium 139 mmol/L (136-145) 05/24/24 22:47 Potassium 4.8 mmol/L (3.5-5.1) 05/24/24 22:47 Chloride 105 mmol/L (98-107) 05/24/24 22:47 Carbon Dioxide 24 mmol/L (22-29) 05/24/24 22:47 Anion Gap 14.8 (5-19) 05/24/24 22:47 BUN 11 mg/dL (6-20) 05/24/24 22:47 Creatinine 0.9 mg/dL (0.7-1.2) 05/24/24 22:47 GFR Calculation 95.0 mL/min (90-130) 05/24/24 22:47 Glucose 92 mg/dL (65-115) 05/24/24 22:47 Calculated Osmolality 285 mOsm/kg (285-295) 05/24/24 22:47 Calcium 11.0 mg/dL (8.5-10.5) H 05/24/24 22:47 Troponin T Baseline < 6 ng/L (0-15) 05/24/24 22:47 Troponin T 120 Minute 6.00 ng/L (0-15) 05/25/24 00:20 Delta Troponin T 0.45746 ABS# (0-10) 05/25/24 00:20 NT-Pro-B Natriuret Pep < 36 pg/mL (0-125) 05/24/24 22:47 All radiology interpretation(s) finalized by discharge Discharge Plan Discharge Patient Disposition: Home Clinical Impression: Chest pain Qualifiers: Chest pain type: unspecified Qualified Code(s): R07.9 - Chest pain, unspecified Condition: Stable Prescriptions: No Action cyclobenzaprine 10 mg tablet 10 mg PO Q8H lisinopril 20 mg tablet 20 mg PO DAILY diltiazem HCl 60 mg capsule,extended release 12 hr 60 mg PO BID Qty: 60 1RF Rx Instructions: monitor heart rate nitroglycerin 0.4 mg tablet, sublingual See Rx Instructions .ROUTE .COMPLEX Qty: 25 0RF Dose Instruction: TAKE 1 TABLET SUBLINGUALLY EVERY 5 MINUTES NEEDED FOR CHEST PAIN DO NOT EXCEED 3 DOSES PER EPISODE Rx Instructions: TAKE 1 TABLET SUBLINGUALLY EVERY 5 MINUTES NEEDED FOR CHEST PAIN DO NOT EXCEED 3 DOSES PER EPISODE cinacalcet 30 mg tablet 30 mg PO BID 90 Days Qty: 180 0RF buspirone 10 mg tablet 10 mg PO TID Qty: 90 0RF hydrocodone-acetaminophen 7.5-325 mg tablet 1 tab PO QID PRN (Reason: Pain) Discharge Orders: Discharge ED (Routine); Ordered 05/25/24 Ordered By: Efrain Blood Patient Instructions: Chest Pain (ED) Activity Restrictions/Additional Instructions: Follow-up with cardiology as scheduled. Print Language: Bulgarian Coding Level of Care Code ED Drop Hammer Setter Up for Juan Jose Lima
[2024-05-25 01:05] VITALS: BP 137/94; PULSE 66; O2SAT 95
[2024-05-25 01:08] VITALS: BP 137/94; PULSE 66; O2SAT 95
== END 2024-05-25 01:02 | disposition home or self-care (01) ==
PROVIDERS: Emergency Provider Emergency Medicine
DX: R07.9 Chest pain, unspecified (principal); Z87.891 Personal history of nicotine dependence
CPT/HCPCS: 36415; 71045; 80048; 83880; 84484; 85025; 93005; 96374; 99285; J1885

== ENCOUNTER 2024-06-07 03:20 | Emergency (ER) | payer OTHER, SELFPAY ==
[2024-06-07 03:21] VITALS: BP 137/95; PULSE 73; RESP 18; TEMP 36.4; O2SAT 97; BMI 33.4
--- NOTE | 2024-06-07 03:21 | ECG_ITS ---
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 Measurements Intervals [place] Rate: 68 P: 52 [place]: 186 QRS: -4 QRSD: 95 T: 5 QT: 369 QTc: 395 Interpretive Statements SINUS RHYTHM Compared to ECG 05/24/2024 22:03:52 No significant changes Electronically Signed On 06-07-2024 12:31:33 CDT by Pamella Mosqueda M.D. [email or web address]
--- NOTE | 2024-06-07 03:23 | XRR_ITS ---
PROCEDURE INFORMATION: Exam: XR Chest Exam date and time: 06/07/2024 3:34 AM Age: 38 years old Clinical indication: Chest wall pain; Additional info: Chest pain TECHNIQUE: Imaging protocol: Radiologic exam of the chest. Views: 1 view. COMPARISON: CR (CHEST, ) 05/24/2024 10:12 PM FINDINGS: Lungs: Unremarkable. No consolidation. Pleural spaces: Unremarkable. No pleural effusion. No pneumothorax. Heart/Mediastinum: Unremarkable. No cardiomegaly. Bones/joints: Unremarkable. XR/XR chest 1V portable [id number] IMPRESSION: No acute findings.
[2024-06-07 03:33] LABS: Basophils # 0.1 10^3/uL (0.0-0.1); Basophils % 0.6 %; Eosinophils # 0.4 10^3/uL (0.0-0.8); Eosinophils % 3.9 %; Hematocrit 48.8 % (37-53); Lymphocytes # 2.9 10^3/uL (0.8-4.8); Lymphocytes % 25.7 %; Mean Corpuscular HGB Conc 32.4 g/dL (30-55); Mean Corpuscular Hemoglobin 28.9 pg (27-33); Mean Corpuscular Volume 89.4 fl (82-101); Mean Platelet Volume 9.1 fL (7.4-10.4); Monocytes # 0.7 10^3/uL (0.2-0.9); Monocytes % 6.5 %; Neutrophils # 7.01 10^3/uL (1.8-7.7); Nucleated Red Blood Cells % 0 %; Platelet Count 233 10^3/cmm (157-399); Red Blood Count 5.46 10^6/uL (3.85-5.65); Red Cell Distribution Width 12.8 % (12.1-15.1); White Blood Count 11.11 10^3/uL (3.29-11.43)
--- NOTE | 2024-06-07 03:33 | W.ED.CHESTPA ---
HPI - Chest Pain General: Chief Complaint: Chest Pain Stated Complaint: CP Time Seen by Provider: 06/07/24 03:21 History of Present Illness: 38-year-old man who presents emergency room chest pain from retirement. He says it started about 2 hours ago. Left central chest. Says it feels like a squeezing. No fevers. No cough. Patient reports bad aortic valve. He follows with Dr. Machuca. Related Data Home Medications ?Medication ?Instructions ?Recorded ?Confirmed hydrocodone 7.5 mg-acetaminophen 1 tab PO QID PRN Pain 10/31/22 03/23/23 325 mg tablet cyclobenzaprine 10 mg tablet 10 mg PO Q8H 11/12/22 03/23/23 lisinopril 20 mg tablet 20 mg PO DAILY 11/12/22 03/23/23 Previous Rx's ?Medication ?Instructions ?Recorded diltiazem HCl 60 mg 60 mg PO BID #60 caps 11/12/22 capsule,extended release 12 hr nitroglycerin 0.4 mg sublingual See Rx Instructions .Route 02/24/23 tablet .COMPLEX #25 tabs cinacalcet 30 mg tablet 30 mg PO BID 90 days #180 tabs 03/25/23 buspirone 10 mg tablet 10 mg PO TID #90 tabs 12/02/23 Allergies Allergy/AdvReac Type Severity Reaction Status Date / Time baclofen Allergy Unknown Unknown Verified 06/07/24 03:25 bupropion Allergy Unknown Unknown Verified 06/07/24 03:25 fluoxetine Allergy Unknown Unknown Verified 06/07/24 03:25 unclassified drug Allergy Unknown Unknown Uncoded 06/07/24 03:25 Review of Systems Narrative: Constitutional symptoms: Negative except as documented in HPI. Skin symptoms: Negative except as documented in HPI. Eye symptoms: Negative except as documented in HPI. ENMT symptoms: Negative except as documented in HPI. Respiratory symptoms: Negative except as documented in HPI. Cardiovascular symptoms: Negative except as documented in HPI. Gastrointestinal symptoms: Negative except as documented in HPI. Genitourinary symptoms: Negative except as documented in HPI. Musculoskeletal symptoms: Negative except as documented in HPI. Neurologic symptoms: Negative except as documented in HPI. Psychiatric symptoms: Negative except as documented in HPI. Endocrine symptoms: Negative except as documented in HPI. PFS ED PFSH: Medical History Lumbar disc disease with radiculopathy Social History Smoking and tobacco/nicotine status: former use of tobacco/nicotine Quit status (tobacco/nicotine): has quit using Household members: significant other Physical Exam Narrative: EXAM NARRATIVE: General: Alert, no acute distress. Skin: Warm, dry. Head: Normocephalic, atraumatic. Neck: Supple, trachea midline. Eye: Extraocular movements are intact. Ears, nose, mouth and throat: mucosa moist. Cardiovascular: Regular, Normal peripheral perfusion. Respiratory: Lungs are clear to auscultation, respirations are non-labored, breath sounds are equal, Symmetrical chest wall expansion. Gastrointestinal: Soft, Nontender, Non distended Musculoskeletal: Normal ROM, no deformity. Neurological: Alert and oriented, No focal neurological deficit observed. Psychiatric: Cooperative, appropriate mood & affect. Course Vital Signs: Vital signs: Vital Signs Temperature 97.6 F 06/07/24 03:21 Pulse Rate 93 06/07/24 03:55 Respiratory Rate 16 06/07/24 03:55 Blood Pressure 140/83 06/07/24 03:55 Pulse Oximetry 97 06/07/24 03:55 Oxygen Delivery Me thod Room Air 06/07/24 03:55 MDM - Chest Pain Medical Decision Making Differential diagnosis for patient with chest pain includes but is not limited to and based on the above HPI, review of systems and physical exam: Pneumonia. unstable angina. angina. Acute coronary syndrome / CT. Pulmonary embolism. Costochondritis / musculoskeletal. Pleurisy. Pericarditis. Esophageal spasm. Pancreatis. Cholecystitis. Orders placed to evaluate differential diagnosis based on the above differential, HPI and physical exam EKG: Time 3:21 AM. Rate 68. Normal sinus rhythm, No ST-T changes, no ectopy, normal NM & QRS intervals, This was reviewed and interpreted by myself the ER physician at 3:27 AM. Chest x-ray: No acute process. No infiltrate. No pneumothorax. Films were interpreted by myself the emergency room provider and pending final radiology review. Lab Review: Laboratory results were reviewed and interpreted by myself the emergency room physician. Lab work is unremarkable including a normal troponin. I reviewed the patient's medical record. Reexamination: Patient remained stable. No increased work of breathing. No altered mental status. No focal motor deficits. Assessment and plan: Noncardiac chest pain - Discharged home - Discussed plan with patient. Answered any questions. - Evaluation and treatment of this problem were appropriate in the emergency setting. Lab Data 06/07/24 03:25 06/07/24 03:25 Laboratory Results WBC 11.11 10^3/uL (3.29-11.43) 06/07/24 03:25 RBC 5.46 10^6/uL (3.85-5.65) 06/07/24 03:25 Hgb 15.80 g/dL (11.27-16.99) 06/07/24 03: Hct 48.8 % (37-53) 06/07/24 03: MCV 89.4 fl (82-101) 06/07/24 03:25 MCH 28.9 pg (27-33) 06/07/24 03:25 MCHC 32.4 g/dL (30-55) 06/07/24 03: RDW 12.8 % (12.1-15.1) 06/07/24 03:25 Plt Count 233 10^3/cmm (157-399) 06/07/24 03: MPV 9.1 fL (7.4-10.4) 06/07/24 03:25 Neut % (Auto) 63.0 % 06/07/24 03:25 Lymph % (Auto) 25.7 % 06/07/24 03:25 Dickens % (Auto) 6.5 % 06/07/24 03:25 Eos % (Auto) 3.9 % 06/07/24 03:25 Baso % (Auto) 0.6 % 06/07/24 03:25 Neut # (Auto) 7.01 10^3/uL (1.8-7.7) 06/07/24 03: Lymph # (Auto) 2.9 10^3/uL (0.8-4.8) 06/07/24 03:25 Dickens # (Auto) 0.7 10^3/uL (0.2-0.9) 06/07/24 03:25 Eos # (Auto) 0.4 10^3/uL (0.0-0.8) 06/07/24 03:25 Baso # (Auto) 0.1 10^3/uL (0.0-0.1) 06/07/24 03:25 Nucleated RBC % (auto) 0 % 06/07/24 03:25 Nucleated RBCs # 0.0 /100WBC 06/07/24 03:25 Sodium 136 mmol/L (136-145) 06/07/24 03:25 Potassium 4.1 mmol/L (3.5-5.1) 06/07/24 03:25 Chloride 105 mmol/L (98-107) 06/07/24 03:25 Carbon Dioxide 22 mmol/L (22-29) 06/07/24 03:25 Anion Gap 13.1 (5-19) 06/07/24 03:25 BUN 12 mg/dL (6-20) 06/07/24 03:25 Creatinine 0.9 mg/dL (0.7-1.2) 06/07/24 03:25 GFR Calculation 95.0 mL/min (90-130) 06/07/24 03:25 Glucose 131 mg/dL (65-115) H 06/07/24 03:25 Calculated Osmolality 284 mOsm/kg (285-295) L 06/07/24 03:25 Calcium 10.2 mg/dL (8.5-10.5) 06/07/24 03:25 Total Bilirubin 0.3 mg/dL (0.15-1.2) 06/07/24 03:25 AST 14 U/L (0-40) 06/07/24 03:25 ALT 24 U/L (0-41) 06/07/24 03:25 Alkaline Phosphatase 90 U/L (40-130) 06/07/24 03:25 Troponin T Baseline < 6 ng/L (0-15) 06/07/24 03:25 NT-Pro-B Natriuret Pep < 36 pg/mL (0-125) 06/07/24 03:25 Total Protein 6.7 g/dL (6.6-8.7) 06/07/24 03:25 Albumin 4.1 g/dL (3.5-5.2) 06/07/24 03:25 Globulin 2.6 g/dL (1.3-4.6) 06/07/24 03:25 XR interpretation done by ED provider, pending radiology final review Discharge Plan Discharge Patient Disposition: Home Clinical Impression: Non-cardiac chest pain Condition: Stable Prescriptions: No Action cyclobenzaprine 10 mg tablet 10 mg PO Q8H lisinopril 20 mg tablet 20 mg PO DAILY diltiazem HCl 60 mg capsule,extended release 12 hr 60 mg PO BID Qty: 60 1RF Rx Instructions: monitor heart rate nitroglycerin 0.4 mg tablet, sublingual See Rx Instructions .ROUTE .COMPLEX Qty: 25 0RF Dose Instruction: TAKE 1 TABLET SUBLINGUALLY EVERY 5 MINUTES NEEDED FOR CHEST PAIN DO NOT EXCEED 3 DOSES PER EPISODE Rx Instructions: TAKE 1 TABLET SUBLINGUALLY EVERY 5 MINUTES NEEDED FOR CHEST PAIN DO NOT EXCEED 3 DOSES PER EPISODE cinacalcet 30 mg tablet 30 mg PO BID 90 Days Qty: 180 0RF buspirone 10 mg tablet 10 mg PO TID Qty: 90 0RF hydrocodone-acetaminophen 7.5-325 mg tablet 1 tab PO QID PRN (Reason: Pain) Discharge Orders: Discharge ED (Routine); Ordered 06/07/24 Ordered By: Tory Maxwell Discharge Diet: Usual diet Discharge Activity: Increase activity as tolerated Patient Instructions: Noncardiac Chest Pain (ED), Opioid Safety, Pain Management Activity Restrictions/Additional Instructions: Thank you for choosing [facility] for your healthcare needs today. Please realize this is an emergency room and that we are providing you with a medical screening exam and this may not be complete and all inclusive of all the testing and or work up that you may need to determine your ailment or severity of your illness. You have been screened and evaluated and felt safe for discharge. Health conditions do change or evolve sometimes and as such it is important that you follow up with your Primary Doctor to be re checked, 3-5 days is a general good time frame for follow up. You are always welcome to return to the ED for re assessment if your symptoms are worsening or you have new concerns Print Language: Mauritian Coding Level of Care Code ED Ammunition Supervisor for Juan Jose Lima
[2024-06-07 03:50] LABS: Troponin(5th) Baseline < 6 ng/L (0-15)
[2024-06-07 03:55] VITALS: BP 140/83; PULSE 93; RESP 16; O2SAT 97
[2024-06-07 03:59] LABS: Alanine Aminotransferase 24 U/L (0-41); Albumin Level 4.1 g/dL (3.5-5.2); Alkaline Phosphatase 90 U/L (40-130); Anion Gap 13.1 (5-19); Aspartate Amino Transferase 14 U/L (0-40); Blood Urea Nitrogen 12 mg/dL (6-20); Calcium 10.2 mg/dL (8.5-10.5); Carbon Dioxide 22 mmol/L (22-29); Chloride 105 mmol/L (98-107); Creatinine Clr Calc Pharmacy 128.6801; Globulin 2.6 g/dL (1.3-4.6); Glucose 131 mg/dL (65-115); NT Pro B Type Natriuretic Pept < 36 pg/mL (0-125); Osmolality Calculated 284 mOsm/kg (285-295); Potassium 4.1 mmol/L (3.5-5.1); Sodium 136 mmol/L (136-145); Total Bilirubin 0.3 mg/dL (0.15-1.2); Total Protein 6.7 g/dL (6.6-8.7)
[2024-06-07 04:31] VITALS: BP 141/90; PULSE 71; RESP 16; O2SAT 97
== END 2024-06-07 04:35 | disposition home or self-care (01) ==
PROVIDERS: Emergency Provider Emergency Medicine
DX: R07.89 Other chest pain (principal); Z87.891 Personal history of nicotine dependence
CPT/HCPCS: 71045; 80053; 83880; 84484; 85025; 93005; 99285

== ENCOUNTER 2024-11-16 00:29 | Emergency (ER) | payer MEDICARE, SELFPAY ==
--- OUTSIDE RECORDS SUMMARY | 2015-12-04 11:46 | XMS_ITS | Continuity of Care Document ---
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 Role Phone Jose Francisco Murillo MD Unavailable Unavailable Allergies, Adverse Reactions, Alerts Substance Reaction Status Criticality No Known Allergies Active No Inform ation Medications Medication Instructions Dosage Effective Dates (start - stop) Status Comments Medrol (Reji) 4 mg tablets in a dose pack take by Oral route as pakage directs Not Available - Active [place] 7.5 mg-325 mg tablet take 1 - 2 Tablet by oral route every 4 - 6 hours as needed for pain 1-2 Tablet - Active ranitidine 150 mg capsule - Active loratadine 10 mg disintegrating tablet - Active Procedures Procedure Date Asp/inject intermed joint/bursa w/o US g uidance Depo Medrol Methylprednisolone 40 MG inj Office/outpatient visit,[facility] 2015 Advance Directives Directive Yes / No Effective Date File Name No Information Encounters Encounter Description Practice Location Reason(s) For Visit Diagnoses Date Provider Providers Copied on Encounter [facility], [address] [place] [address], [id number], [phone] [facility] No Information 6 Chidi Felton. [address] [facility], [place] [address], [place], [place], [id number] , [place]. tel: [phone] Office/outpat ient visit,[facility], [address] [place] [address], [id number], tel:[phone] [facility] Left shoulder (chief complaint) Osteolysis of left shoulder 6 Chidi Felton. [address] [facility], [address], [place], [place], [id number] , [place]. tel: [phone] Referring Provider: Sunita Dorsey, [address] [place] [address], [place], [address]. tel:[phone] Family History Family Member Type Diagnosis Age At Onset Problem (finding) Family history of Cance r, unknown Problem (finding) Family history of congenital heart disease Problem (finding) Family history of hyper tension Problem (finding) Family history of strok e Problem (finding) Family history of Arthr itis Problem (finding) Family history of diabetes mellitus in first degree relative Payers Payer name Insurance type Covered alliance party ID Authoriza tion(s) [place] Part B MB [id number] Social History Type Description Quantity Date Captured Comments Alcohol Use Details No Caffeine Use Details Unknown Tobacco Use Status Smoking Status No Information Sex Male Chief Complaint And Reason For Visit No Information Reason For Referral Reason For Referral No Information History Of Present Illness Encounter Date Complaint History Of Prese nt Illness Left shoulder patient comes in today for left shoulder pain Functional Status Date Functional Assessmen t No Information Instructions Date Instruction Additional Infor mation No Information Assessments Type Assessment Date No Information Patient Care Teams Name Effective Dates (start - stop) Status Members No Information
--- OUTSIDE RECORDS SUMMARY | 2019-01-31 07:56 | XMS_ITS | Continuity of Care Document ---
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 Role Phone Dominik Caraballo MD Unavailable [...] day at hs 100 MG - Active [place] 10 mg-325 mg tablet take 1 tablet by oral route every 4 - 6 hours as needed for pain - Active Sudafed 12 Hour 120 mg tablet,extended release take 1 tablet by oral route every 12 hours 120 MG - Active naproxen 500 mg tablet take 1 tablet by oral route 2 times every day with food 500 MG - Active Procedures Procedure Date OFFICE/OUTPATIENT VISIT, EST OFFICE/OUTPATIENT VISIT, EST OFFICE/OUTPATIENT VISIT, EST PSYTX PT&/FAM W/E&M 30 MIN PSYTX COMPLEX INTERACTIVE OFFICE/OUTPATIENT VISIT, EST Advance Directives Directive Yes / No Effective Date File Name No Information Encounters Encounter Description Practice Location Reason(s) For Visit Diagnoses Date Provider Providers Copied on Encounter [facility], [address] [place] [address], [address], [place] tel:[phone] *[facility] [place] [facility] No Information 9 Rashmi Lehman. [address] [place], [address], [place]. tel:[phone] OFFICE/OUTPA TIENT VISIT, [facility], [address] [place] [address], [address], [place] tel:[phone] *[facility] [place] [facility] Post traumatic stress disorderNightma res associated with chronic post-traumatic stress disorderRecurre nt major depressive disorderBody mass index (BMI) 31.0-31.9, adultDietary counseling and surveillance Sep-3 9 Rashmi Lehman. [address] [place], [address], [place]. tel:[phone] OFFICE/OUTPA TIENT VISIT, [facility], [address] [place] [address], [address], [place] tel:[phone] *[facility] [place] [facility] No Information 9 Rashmi Lehman. [address] [place], [address], [place]. tel:[phone] OFFICE/OUTPA TIENT VISIT, [facility], [address] [place] [address], [address], [place] tel:[phone] *[facility] [place] [facility] No Information 9 Rashmi Lehman. [address] [place], [address], [place]. tel:[phone] OFFICE/OUTPA TIENT VISIT, [facility], [address] [place] [address], [address], [place] tel:[phone] *[facility] Urgent Care nasal congestion (chief complaint) Nicotine [...] ) Payers Payer name Insurance type Covered republican ID Authoriza tibren(s) No Information Social History [...] Order: Lab Order COMPREHE NSIVE METABOLIC PANEL ([id number]), Ordered on: Ordered Future Order: Lab Order FREE T4 ([id number]), Ordered on: Ordered Future Order: Lab Order GLYCOHEM OGLOBIN (A1c) ([id number]), Ordered on: Ordered Future Order: Lab Order LIPID PA HALI ([id number]), Ordered on: Ordered Future Order: Lab Order THYROID STIMULATING HORMONE ([id number]), Ordered on: Ordered History Of Present Illness [...] Relate d to Acute maxillary sinusitis Stop Claritin and start Zyrtec. Related to Other seasonal allergic rhinitis Stop Zantac and star t Prilosec. FU with PCP. Related to Gastritis Doxycycline, Prednis one, and ProAir inhaler. Related to Bronchitis Giving encouragement to exercise Related to Body mass index (BMI) 33.0-33.9, adult Dietary management e ducation, guidance, and counseling Related to Body mass index (BMI) 33.0-33.9, adult Assessments Type Assessment Date No Information Patient Care Teams Name Effective Dates (start - stop) Status Members No Information
[2024-11-16 00:30] VITALS: BP 148/101; PULSE 75; RESP 16; TEMP 37; O2SAT 96; BMI 32.6
--- NOTE | 2024-11-16 00:35 | XRR_ITS ---
PROCEDURE INFORMATION: Exam: XR Chest Exam date and time: 11/16/2024 1:11 AM Age: 39 years old Clinical indication: Fever; Additional info: Dyspnea/cough TECHNIQUE: Imaging protocol: Radiologic exam of the chest. Views: 1 view. COMPARISON: CR XR chest 1V portable [id number] 06/07/2024 3:34 AM FINDINGS: Lungs: Unremarkable. No consolidation. Pleural spaces: Unremarkable. No pleural effusion. No pneumothorax. Heart/Mediastinum: Unremarkable. No cardiomegaly. Bones/joints: Unremarkable. XR/XR chest 1V portable [id number] IMPRESSION: No acute findings.
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
--- NOTE | 2024-11-16 00:44 | XRR_ITS ---
PROCEDURE INFORMATION: Exam: XR Right Elbow Exam date and time: 11/16/2024 1:17 AM Age: 39 years old Clinical indication: Pain; Elbow; Right TECHNIQUE: Imaging protocol: Radiologic exam of the right elbow. Views: 3 or more views. COMPARISON: No relevant prior studies available. FINDINGS: Bones/joints: No acute fracture. No joint effusion. Soft tissues: Soft tissue swelling along the dorsal aspect of the proximal right forearm. XR/XR elbow RT min 3V* [id number] IMPRESSION: No acute fracture.
--- OUTSIDE RECORDS SUMMARY | 2024-11-16 00:45 | XMS_ITS | Clinical Summary ---
Author Organization [facility] Address [address] [place] [address] Phone Care Team Providers Care Associate Scientist Name Role Phone System, Provider Not In DO Primary Care Provider Allergies Active Allergy Reactions Criticality Noted Date Comments Baclofen Nausea/Vomiting 01/15/2009 Flushing, Skin irritation, Flushing Bupropion Hcl Hallucinations,Rash Medium 07/14/2016 Codeine 11/08/2023 Fluoxetine Hallucinations Medium 06/28/2017 Medications nitroglycerin (Nitrostat) 0.[address] 0.4 mg under the tongue every 5 (five) minutes if needed for chest pain. 3 Active oxyCODONE-acetamino phen (Percocet) 5-325 mg tablet Take 1 tablet by mouth every 6 (six) hours if needed for severe pain (7-10). 20 tablet 4 Active ondansetron ODT (Zofran-ODT) 4 mg disintegrating tablet Take 1 tablet (4 mg total) by mouth every 6 (six) hours if needed for nausea or vomiting. 20 tablet 4 Active Active Problems Problem Noted Date Diagnosed Date Gastroesophageal reflux disease without esophagi tis 11/18/2023 Personality disorder 11/18/2023 Traumatic brain injury 11/18/2023 CAD (coronary artery disease) 11/18/2023 History of AK (myocardial infarction) 11/18/2023 Scrotal abscess 11/17/2023 Benign hypertension 07/06/2022 Chronic left-sided low back pain with left-sided sciatica 09/04/2020 Hiatal hernia 08/27/2020 TERESO (generalized anxiety disorder) 08/27/2020 Posttraumatic stress disorder 08/27/2020 Lumbar radiculopathy, chronic 07/16/2016 Overview (11/18/2023): Last Assessment & Plan: He also reports chronic back pain. He has seen pain management, no improvement with epidural injections. He refuses to do any additional physical therapy and has not noted improvement with back exercises he has done at home. He is not a candidate for referral to pain management clinic because he uses marijuana on a regular basis for his PTSD. He has been referred to neurosurgery, but is not intersted in surgery at this time. Obtain xray of the lumbar spine. He requested Uehling. I told him that I would not be prescribing this medication as there is no evidence of benefit in the use of narcotics for chronic back pain. I offered to prescribe Meloxicam, however he wanted to research this medication before deciding if he wanted to take it. I also told him that if he quit using marijuana then I would be happy to refer him to the pain management clinic. Social History Tobacco Use Types Packs/Day Years Used Date Smoking Tobacco: Every Day Cigarettes Smokeless Tobacco: Never Tobacco Cessation:Ready to Q uit: Not Asked; Counseling Given: Not Answered Alcohol Use Standard Drinks/Week Comments Not Currently 0 (1 standard drink = 0.6 oz pur e alcohol) [facility] Utilities Answer Date Recorded In the past 12 months has [facility] [employer], gas, oil, or water [employer] threatened to shut off services in your home? Yes 11/17/2023 Humiliation, Afraid, Rape, and Kick questionnair e Answer Date Recorded Within the last year, have y ou been afraid of your partner or ex-partner? No 11/17/2023 Within the last year, have y ou been humiliated or emotionally abused in other ways by your partner or ex-partner? No Within the last year, have y ou been kicked, hit, slapped, or otherwise physically hurt by your partner or ex-partner? No 11/17/2023 Within the last year, have y ou been raped or forced to have any kind of sexual activity by your partner or ex-partner? No 11/17/2023 Overall Financial Resource Strain (CARDIA) Answe r Date Recorded How hard is it for you to pa y for the very basics like food, housing, medical care, and heating? Very hard 11/17/2023 Hunger Vital Sign Answer Date Recorded Within the past 12 months, y ou worried that your food would run out before you got the money to buy more. Often true Within the past 12 months, t he food you bought just didn't last and you didn't have money to get more. Sometimes true 06/2023 PRAPARE - Transportation Answer Date Re corded In the past 12 months, has l ack of transportation kept you from medical appointments or from getting medications? Yes 06/2023 In the past 12 months, has l ack of transportation kept you from meetings, work, or from getting things needed for daily living? Yes 11/17/2023 Housing Stability Vital Sign Answer Terell e Recorded In the last 12 months, was t here a time when you were not able to pay the mortgage or rent on time? Yes 11/17/2023 In the past 12 months, how m any times have you moved where you were living? 3 11/17/2023 At any time in the past 12 m [facility], were you homeless or living in a custodial (including now)? Yes 11/17/2023 Sex and Gender Information Value Date Recorded Sex Assigned at Not on file Legal Sex Male 9:06 AM CDT Gender Identity Not on file Sexual Orientation Not on file Last Filed Vital Signs Vital Sign Reading Time Taken Comments Blood Pressure 125/83 11/18/2023 1:40 AM CDT Pulse 58 11/18/2023 1:40 AM CDT Temperature 36.7 C (98.1 F) 11/18/2023 1:40 AM CDT Respiratory Rate 18 11/18/2023 1:40 AM CDT Oxygen Saturation 98% 11/18/2023 1:40 AM CDT Inhaled Oxygen Concentration - - Weight 92.7 kg (204 lb 5.9 oz) 11/17/2023 7:30 P M CDT Height 172.7 cm (5' 8 ) 11/17/2023 7:30 PM CDT Body Mass Index 31.07 11/17/2023 7:30 PM CDT Plan of Treatment Health Maintenance Due Date Last Done Comments Lipid Panel 1986 MMR Vaccines (1 of 1 - Standard series) 08/09/1987 Varicella Vaccines (1 of 2 - 13+ 2-dose series) 08/09/1999 Depression Screening 2004 Social Drivers of Health (SDoH) 2004 Hepatitis B Vaccines (1 of 3 - 19+ 3-dose series) 2005 Pneumococcal Vaccine: 50+ Years (1 of 2 - PCV) 2005 Pneumococcal Vaccine (1 of 2 - PCV) 2005 HPV Vaccines (1 - 3-dose SCDM series) 2013 COVID-19 Vaccine (1 - season) 2023 Influenza Vaccine (#1) 2024 , 05/25/2022, 12/10/2017, Additional history exists Creatinine Level 11/16/2024 11/17/2023, 04/2023, 11/08/2023, Additional history exists Potassium Level 11/16/2024 11/17/2023, 09/0 04/2023, 11/08/2023, Additional history exists DTaP,Tdap,and Td Vaccines (9 - Td or Tdap) 12/11/2027 12/10/2017, 12/14/2011, 09/14/2005, Additional history exists Zoster Vaccines (1 of 2) 2036 RSV Vaccines (1 - 1-dose 75+ series) 2061 HIB Vaccines Aged Out No longer eligi ble based on patient's age to complete this topic Hepatitis A Vaccines Aged Out No long er eligible based on patient's age to complete this topic IPV Vaccines Aged Out No longer eligi ble based on patient's age to complete this topic Meningococcal B Vaccine Aged Out No l onger eligible based on patient's age to complete this topic Meningococcal Vaccine Aged Out No kendell nicole eligible based on patient's age to complete this topic Rotavirus Vaccines Aged Out No longer eligible based on patient's age to complete this topic Procedures Procedure Name Priority Date/Time Associated Diagnosis Comments COMPREHENSIVE METABOLIC PANEL STAT 11/17/2023 4:26 PM CDT from Last 3 Months or Most Recently Relevant to Health Maintenance Results * (ABNORMAL) Comprehensive Metabolic Panel (11/17/2023 4:26 PM CDT) [facility] Signature Glucose 139(H) 70 - 100 mg/dL LAB CHEMISTRY METHOD 11/17/2023 4:58 PM CDT [facility] BUN 12 9 - 20 mg/dL LAB CHEMISTRY METHOD 11/17/2023 4:58 PM CDT [facility] Creatinine 1.32(H) 0.66 - 1.25 mg/dl LAB CHEMISTRY METHOD 11/17/2023 4:58 PM CDT [facility] BUN/Creatinine Ratio 9(L) 12 - 17 LAB CHEMISTRY METHOD 11/17/2023 4:58 PM CDT [facility] Sodium 140 135 - 145 mmol/L LAB CHEMISTRY METHOD 11/17/2023 4:58 PM CDT [facility] Potassium 3.7 3.6 - 5.0 mmol/L LAB CHEMISTRY METHOD 11/17/2023 4:58 PM CDT [facility] Chloride 110 101 - 111 mmol/L LAB CHEMISTRY METHOD 11/17/2023 4:58 PM CDT [facility] Total Carbon Dioxide 30 22 - 30 mmol/L LAB CHEMISTRY METHOD 11/17/2023 4:58 PM CDT [facility] Anion Gap 4(L) 9 - 17 mmol/L LAB CHEMISTRY METHOD 11/17/2023 4:58 PM CDT [facility] Calcium 11.1(H) 8.2 - 10.2 mg/dL LAB CHEMISTRY METHOD 11/17/2023 4:58 PM CDT [facility] Total Protein, Serum 7.3 5.6 - 8.5 g/dL LAB CHEMISTRY METHOD 11/17/2023 4:58 PM CDT [facility] Albumin 3.2(L) 3.5 - 5.2 g/dL LAB CHEMISTRY METHOD 11/17/2023 4:58 PM CDT [facility] GLOBULIN 4.1(H) 2.1 - 3.8 g/dL LAB CHEMISTRY METHOD 11/17/2023 4:58 PM CDT [facility] A/G Ratio 0.8(L) 1.4 - 1.7 LAB CHEMISTRY METHOD 11/17/2023 4:58 PM CDT [facility] Bilirubin, Total 0.5 0.1 - 1.3 mg/dL LAB CHEMISTRY METHOD 11/17/2023 4:58 PM CDT [facility] Alkaline Phosphatase 79 45 - 117 U/L LAB CHEMISTRY METHOD 11/17/2023 4:58 PM CDT [facility] ALT (SGPT) 19 11 - 58 U/L LAB CHEMISTRY METHOD 11/17/2023 4:58 PM CDT [facility] AST (SGOT) 14 9 - 55 U/L LAB CHEMISTRY METHOD 11/17/2023 4:58 PM CDT [facility] eGFR >60 >=60 mL/min/1. 73 m2 LAB CHEMISTRY METHOD 11/17/2023 4:58 PM CDT [facility] Blood Venous blood specimen / Unknown Existing Catheter / Unknown 11/17/2023 4:26 PM CDT 11/17/2023 4:33 PM CDT us Cole Sheth MD LAB BLOOD ORDERABLES Final Res ult [facility] [address] [id number] from Last 3 Months or Most Recently Relevant to Health Maintenance Insurance [facility] [employer] Advance Directives For more information, please contact: [phone] (7:30 AM - 5PM [facility], 7 days a week) * Full Code (Latest Code Status on File) Date Activated Date Inactivated Comments 11/17/2023 8:03 PM 11/18/2023 5:15 AM Care Teams Associate Scientist Relationship Specialty Start Date End Date System, Provider Not In, DO [address] [id number] PCP - General 11/17/23
--- OUTSIDE RECORDS SUMMARY | 2024-11-16 00:45 | XMS_ITS | Clinical Summary ---
Author Organization [facility] Address [address] [place] [address] Care Team Providers Care Inside Barrel Polisher Name Role Phone Unavailable Primary Care Provider Unavailabl e Allergies Active Allergy Reactions Criticality Noted Date Comments Bupropion Hcl Unknown 07/14/2016 Medications busPIRone (BUSPAR) 10 MG tablet Take 10 mg by mouth. Active HYDROcodone-acet aminophen (NORCO) 10-325 mg per tablet TK 1 T PO QID PRN 0 11/03/2018 Active pseudoephedrine (SUDAFED) 120 mg 12 hr tablet Take 120 mg by mouth every 12 (twelve) hours as needed. Active NAPROXEN ORAL Take by mouth as needed. Active Active Problems Problem Noted Date Diagnosed Date Lumbar radiculopathy, chronic 07/16/2016 Lumbar disc herniation with radiculopathy 2016 Chronic back pain greater than 3 months duration 07/16/2016 Family History Medical History Relation Name Comments Heart disease Maternal Grandmother Hypertension Maternal Grandmother Stroke Maternal Grandmother Breast cancer Mother Diabetes Mother Heart disease Mother Hypertension Mother Hypertension Paternal Grandfather Stroke Paternal Grandfather Relation Name Status Comments Maternal Grandmother Mother Paternal Grandfather Social History Tobacco Use Types Packs/Day Years Used Date Smoking Tobacco: Every Day Cigarettes Smokeless Tobacco: Never Alcohol Use Standard Drinks/Week Comments No 0 (1 standard drink = 0.6 oz pur e alcohol) Sex and Gender Information Value Date Recorded Sex Assigned at Not on file Legal Sex Male 9:12 AM CDT Gender Identity Not on file Sexual Orientation Not on file Last Filed Vital Signs Vital Sign Reading Time Taken Comments Blood Pressure 124/68 07/16/2016 11:39 AM CDT Pulse - - Temperature - - Respiratory Rate - - Oxygen Saturation - - Inhaled Oxygen Concentration - - Weight 93.9 kg (207 lb) 12/05/2018 2:43 PM CDT Height 172.7 cm (5' 8 ) 12/05/2018 2:43 PM CDT Body Mass Index 31.47 12/05/2018 2:43 PM CDT Plan of Treatment Health Maintenance Due Date Last Done Comments Medicare Annual Wellness 1986 MMR Vaccines (1 of 1 - Stand tori series) 08/09/1987 Varicella Vaccines (1 of 2 - 13+ 2-dose series) 08/09/1999 Hepatitis B Vaccines (1 of 3 - 19+ 3-dose series) 2005 Td, Tdap Vaccines Adult 2005 HPV Vaccines (1 - 3-dose SCD M series) 2013 Influenza Vaccination (#1) 2024 HIB Vaccines Aged Out No longer eligi ble based on patient's age to complete this topic Hepatitis A Vaccines Aged Out No long er eligible based on patient's age to complete this topic IPV Vaccines Aged Out No longer eligi ble based on patient's age to complete this topic Meningococcal Vaccines Aged Out No lo nger eligible based on patient's age to complete this topic Pneumococcal Vaccine: Pediat rics (0 to 5 Years) and At-Risk Patients (6 to 49 Years) Aged Out No longer eligible b ased on patient's age to complete this topic RSV Mab Nirsevimab (Beyfortu s) <20 months Aged Out No longer eligible b ased on patient's age to complete this topic Rotavirus Vaccines Aged Out No longer eligible based on patient's age to complete this topic Insurance MEDICARE
--- OUTSIDE RECORDS SUMMARY | 2024-11-16 00:45 | XMS_ITS | Encounter Summary ---
Author Organization [email or web address] Address [address] [place] [address] Care Team Providers Care Horologist Name Role Phone Jose Brown MD Primary Care Provider [phone] Encounter Details Date Type Department Care Team (Late st Contact Info) Description 11/14/2024 External Device Data [facility] ABSTRACTION Provider, Abstract NO ADDRESS ON FILE Social History Tobacco Use Types Packs/Day Years Used Date Smoking Tobacco: Every Day Cigarettes 1 15 Started: 04/25/2006; Last attempted to quit: 04/25/2021 Smokeless Tobacco: Never Alcohol Use Standard Drinks/Week Comments Never 0 (1 standard drink = 0.6 oz pur e alcohol) Financial Resource Strain Answer Date R ecorded How hard is it for you to pa y for the very basics like food, housing, medical care, and heating? Not hard at all 10/27/2021 Food Insecurity Answer Date Recorded In the past 12 months, have you worried that your food would run out before you had money to buy more? Never true 10/27/2021 In the past 12 months, did y ou run out of food and didn't have money to buy more? Never true 10/27/2021 Transportation Needs Answer Date Record ed In the past 12 months, has l ack of transportation kept you from medical appointments or from getting medications? No 10/27/2021 Lack of Transportation (Non-Medical) Not on file 10/27/2021 Feeling Safe Answer Date Recorded Are you in a relationship wi th someone who hurts you emotionally and/or physically? No 06/13/2022 Sex and Gender Information Value Date Recorded Sex Assigned at Not on file Legal Sex Male 3:21 AM CHAUFFEUR MOTORBUS Gender Identity Not on file Sexual Orientation Not on file documented as of this encounter Plan of Treatment Not on file documented as of this encounter Visit Diagnoses Not on filedocumented in this encounter Care Teams Horologist Relationship Specialty Start Date End Date Jose Brown MD [address] [address] PCP - General Family Practice 11/11/21 documented as of this encounter
--- OUTSIDE RECORDS SUMMARY | 2024-11-16 00:45 | XMS_ITS | Clinical Summary ---
Author Organization [facility] Address [address] [place] [address] Phone Care Team Providers Care Lighthouse Keeper Name Role Phone Jose Brown MD Primary Care Provider [phone] Allergies Active Allergy Reactions Criticality Noted Date Comments Baclofen Other (See Comments) 01/15/2009 Bupropion Hcl Hallucination Low 06/28/2017 Fluoxetine Hallucination Low 06/28/2017 Unclassified Drug Unknown,Other (See Comments) 01/15/2009 Other reaction(s): Skin irritation, Flushing Medications losartan (COZAAR) 50 mg tabletIndications :Benign hypertension Take 1 Tablet (50 mg) by mouth daily. 100 Tablet 3 07/06/2022 Active Active Problems Problem Noted Date Diagnosed Date Benign hypertension 07/06/2022 Family history of coronary artery disease 2022 Nephrolithiasis 07/06/2022 Hyperparathyroidism 07/06/2022 skilled nursing prescription opiate use 07/06/2022 Chronic right shoulder pain 12/17/2021 Traumatic tear of right rotator cuff 12/17/2021 Neuroforaminal stenosis of lumbar spine 11/12/19 Simple chronic bronchitis 10/25/2020 Osteoarthritis of spine with radiculopathy, lumb ar region 10/08/2020 Chronic left-sided low back pain with left-sided sciatica 09/04/2020 Tobacco user 08/27/2020 Posttraumatic stress disorder 08/27/2020 Migraine with aura 08/27/2020 Low back pain 08/27/2020 History of torsion of testis 08/27/2020 Overview (09/06/2020): s/p surgical repair, doing well, cleared to mobilize Hiatal hernia 08/27/2020 TERESO (generalized anxiety disorder) 08/27/2020 Hx of traumatic brain injury 08/27/2020 Tobacco use 07/08/2018 Encounters Date Type Department Care Team Description 11/14/2024 External Device Data [facility] ABSTRACTION Provider, Abstract 10/31/2024 External Device Data [facility] ABSTRACTION Provider, Abstract 08/30/2024 External Device Data [facility] ABSTRACTION Provider, Abstract 08/29/2024 External Device Data [facility] ABSTRACTION Provider, Abstract from Last 3 Months Immunizations Immunization Administration Dates Next Due ([id number])(ALL AGES) VACCINI A (SMALLPOX) VACCINE, PERCUTANEOUS 12/05/2006 (ADACEL/BOOSTRIX)(10 YR UP) TDAP VACCINE, 0.5ML, IM 12/14/2011,09/14/2005 (BIOTHRAX)(18-65 YRS) ANTHRA X VACCINE, PRE-EXPOSURE PROPHYLAXIS, POST EXPOSURE PROPHYLAXIS, 0.5 ML IM 04/29/2007,11/27/2006 (IPOL)(6 WKS AND UP) POLIOVI BRENDAN VACCINE, INACTIVATED (IPV), 3 DOSE, SUBCUT OR IM 09/14/2005 (M-M-R II/PRIORIX)(12 MO UP) MEASLES, MUMPS AND RUBELLA VIRUS VACCINE, 0.5 ML IM/SUBCUT 09/14/2005 (SPIKEVAX) (12 YRS UP PRIMAR Y SERIES) COVID-19 VACCINE - MRNA-1273(PF) 100 MCG/0.5 ML IM SUSP 05/25/2022 (TWINRIX)(18 YRS UP) HEPATIT IS A AND HEPATITIS B VACCINE ADULT, 1 ML, IM 10/12/2005,09/14/2005 (TYPHIM )(2 YRS UP) TYPHOI D CAPSULAR POLYSACCHARIDE VACCINE, 0.5 ML, IM 03/20/2006 (YF-VAX)(9 MOS UP) YELLOW FE GIGI VACCINE, 0.5 ML, SUBCUT 03/20/2006 Hepatitis A Vaccine 03/20/2006 Hepatitis B Vaccine 03/20/2006 INFLUENZA VACCINE QUADRIVALE NT 6 MOS UP CELL DERIVED PF IM 05/25/2022 Influenza Seasonal Unspecified Formulation IM Influenza Virus Vaccine, Spl it Virus (Incl. Purified Surface antigen)-retired CODE 02/19/2008,03/20/2006 Influenza, Unspecified Formulation 12/09/2011 Meningococcal Polysaccharide Vaccine SQ 09/15/19 06 Family History Medical History Relation Name Comments COPD Mother SLE Mother Relation Name Status Comments Father Other Mother Social History Tobacco Use Types Packs/Day Years Used Date Smoking Tobacco: Every Day Cigarettes 1 15 Started: 04/25/2006; Last attempted to quit: 04/25/2021 Smokeless Tobacco: Never Tobacco Cessation:Ready to Q uit: No; Counseling Given: Yes Alcohol Use Standard Drinks/Week Comments Never 0 [...] on file Legal Sex Male 3:21 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 Gender Identity Not on file Sexual Orientation Not on file Last Filed Vital Signs Vital Sign Reading Time Taken Comments Blood Pressure 138/84 07/08/2022 11:01 AM CDT Pulse 90 07/08/2022 11:01 AM CDT Temperature 36.3 C (97.3 F) 07/08/2022 11:01 AM CDT Respiratory Rate 18 07/08/2022 11:01 AM CDT Oxygen Saturation 97% 07/08/2022 11:01 AM CDT Inhaled Oxygen Concentration - - Weight 94.4 kg (208 lb 2 oz) 07/08/2022 11:01 AM CDT Height 172.7 cm (5' 8 ) 07/08/2022 11:01 AM CDT Body Mass Index 31.65 07/08/2022 11:01 AM CDT Plan of Treatment Health Maintenance Due Date Last Done Comments HPV VACCINES (1 - 3-dose SCD M series) 2013 Medicare Advantage ([place]) Preventative Visit/Annual Wellness Visit 03/15/2024 07/08/2022, 10/27/2021 INFLUENZA VACCINE (#1) 2024 , 05/25/2022, 12/17/2021, Additional history exists COVID-19 Vaccine ( - 2024-2 6 season) 2024 05/25/2022 DTAP/TDAP/TD VACCINES (9 - T d or Tdap) 12/11/2027 12/10/2017, 12/14/2011, 09/14/2005, Additional history exists HEPATITIS B VACCINES Completed 03/20/2006, 10/12/2005, 09/14/2005, Additional history exists Insurance [facility] [employer] [facility] [employer] Care Teams Lighthouse Keeper Relationship Specialty Start Date End Date Jose Brown MD [address] [address] PCP - General Family Practice 11/11/21
--- OUTSIDE RECORDS SUMMARY | 2024-11-16 00:45 | XMS_ITS | Encounter Summary ---
Author Organization [facility] Address [address] [place] [address] Care Team Providers Care Staffing Account Manager Name Role Phone Unavailable Primary Care Provider Unavailabl e Encounter Details Date Type Department Care Team (Late st Contact Info) Description 08/16/2017 Orders Only [facility] Radiology [address] [facility] [place] [address] System, Provider Not In, [address] [place] [address] Social History Tobacco Use Types Packs/Day Years Used Date Smoking Tobacco: Former Alcohol Use Standard Drinks/Week Comments No 0 (1 standard drink = 0.6 oz pur e alcohol) Sex and Gender Information Value Date Recorded Sex Assigned at Not on file Legal Sex Male 9:12 AM CDT Gender Identity Not on file Sexual Orientation Not on file documented as of this encounter Plan of Treatment Not on file documented as of this encounter Procedures Procedure Name Priority Date/Time Associated Diagnosis Comments OUTSIDE IMAGES 08/16/2017 10:36 AM CDT documented in this encounter Results * Outside Images (08/16/2017 10:36 AM CDT) Anatomical Region Laterality Modality N/A Radiographic Cmaila ging 08/16/2017 10:3 6 AM CDT Narrative 08/16/2017 10:36 AM CDT Image aquired from external facility for exam: L-SPINE Procedure Note System, Provider Not In, - 12/07/2018 Image aquired from external facility for exam: L-SPINE us Provider Not In System MD [facility] Final Result documented in this encounter Visit Diagnoses Not on filedocumented in this encounter
--- OUTSIDE RECORDS SUMMARY | 2024-11-16 00:45 | XMS_ITS | Encounter Summary ---
Author Organization [employer] Address [address] [place] [address] Care Team Providers Care Landscape Engineer Name Role Phone Jose Brown MD Primary Care Provider [phone] Encounter Details Date Type Department Care Team (Late st Contact Info) Description 02/04/2005 Outpatient Historical [facility] Support Services 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 Gender Identity Not on file Sexual Orientation Not on file documented as of this encounter Plan of Treatment Not on file documented as of this encounter Visit Diagnoses Not on filedocumented in this encounter Additional Health Concerns Infection Onset Date Last Indicated Resolved Time R/O COVID-19 10/22/2020 10/22/2020 10/22/2020 8:22 PM CDT COVID-19 10/22/2020 10/22/2020 11/11/2020 1:17 AM CDT documented as of this encounter Care Teams Landscape Engineer Relationship Specialty Start Date End Date Jose Brown MD [address] [facility] [address] [place] [phone] PCP - General Family Practice 11/11/21 documented as of this encounter
--- OUTSIDE RECORDS SUMMARY | 2024-11-16 00:45 | XMS_ITS | Clinical Summary ---
Author Organization [facility] er Address [address] [place] [address] Care Team Providers Care Forest Fire Prevention Manager Name Role Phone Azucena Nixon MD Primary Care Provid er Allergies Active Allergy Reactions Criticality Noted Date Comments Bupropion Hcl Hallucinations,Rash Medium 07/14/2016 Codeine Fluoxetine Hallucinations Medium 06/28/2017 Medications ibuprofen (ADVIL,MOTRIN) 800 mg tablet Take 1 tablet (800 mg total) by mouth 3 (three) times a day 21 tablet 08/24/2019 Active HYDROcodone-med taminophen (NORCO) 7.5-325 mg per tablet Take 1 tablet by mouth every 4 (four) hours as needed Active pseudoephedrine ER (SUDAFED) 120 mg 12 hr tablet Take 120 mg by mouth every 12 hours as needed Active diazePAM (VALIUM) 5 mg tablet 0 11/23/2019 Active busPIRone (BUSPAR) 10 mg tablet Take 10 mg by mouth Active TiZANidine (ZANAFLEX) 4 mg capsuleIndicati ons:Muscle spasm of back Take 1 capsule (4 mg total) by mouth 3 (three) times a day as needed for muscle spasms 30 capsule 1 01/08/2020 Active Active Problems Problem Noted Date Diagnosed Date Routine adult health maintenance 01/08/2020 Assessment & Plan (01/08/2020 2:20 PM CDT): -Refused influenza immunization -Obtain CBC, CMP, lipid profile Muscle spasm of back 01/08/2020 Assessment & Plan (01/08/2020 2:22 PM CDT): Patient reports pain in his tailbone that just started recently and only occurs with standing. No known trauma or inciting event. Neurological exam is normal. By history, this is most consistent with muscle spasm given sudden onset of symptoms with no known trauma and pain that occurs only while standing. Patient is not agreeable to trying any sort of back exercises. Xray of the sacraum/coccyx ordered. As I suspect his symptoms are due to muscle spasm, start Zanaflex 4 mg TID PRN. He was advised that this medication can cause drowsiness and to take with caution, particularly since he also takes Valium and Buspar. PTSD (post-traumatic stress disorder) 01/08/2020 Assessment & Plan (01/08/2020 2:27 PM CDT): Follows with psychiatry at the [facility]. Reports his symptoms are well-controlled on his current medications. Tobacco use 07/08/2018 Chronic back pain greater than 3 months duration 07/16/2016 Lumbar radiculopathy, chronic 07/16/2016 Assessment & Plan (01/08/2020 2:26 PM CDT): He also reports chronic back pain. He [...] xray of the lumbar spine. He requested [place]. I told him that I would not [...] refer him to the pain management clinic. Immunizations Immunization Administration Dates Next Due Influenza, Unspecified 01/08/2020(Deferr ed: Patient Refused),12/13/2018(Deferred: Patient Refused) Surgical History Surgery Date Site/Laterality Comments TESTICLAR CYST EXCISION 03/15/2006 - 03/14/2007 Medical History Medical History Date Comments PTSD (post-traumatic stress disorder) Back pain Social History Tobacco Use Types Packs/Day Years Used Date Smoking Tobacco: Every Day Cigarettes Smokeless Tobacco: Former Chew PHQ-2 Answer Date Recorded PHQ-2 Total Score (If total score is 3 or more points, staff should administer the PHQ-9) 1 01/08/2020 Personal Safety Answer Date Recorded Getting School Help Needed Not on file 02/26 Sex and Gender Information Value Date Recorded Sex Assigned at Not on file Legal Sex Male 6:23 PM LISW Gender Identity Not on file Sexual Orientation Not on file Obstetrics History Last Filed Vital Signs Vital Sign Reading Time Taken Comments Blood Pressure 104/70 01/08/2020 1:50 PM CDT Pulse 54 01/08/2020 1:50 PM CDT Temperature 37.1 C (98.8 F) 08/24/2019 2:01 PM CDT Respiratory Rate 16 08/24/2019 2:01 PM CDT Oxygen Saturation 98% 01/08/2020 1:50 PM CDT Inhaled Oxygen Concentration - - Weight 91.2 kg (201 lb) 01/08/2020 1:50 PM CDT Height 172.7 cm (5' 8 ) 01/08/2020 1:50 PM CDT Body Mass Index 30.56 01/08/2020 1:50 PM CDT Plan of Treatment Not on file Insurance [facility]ICARE [facility] Address: [facility] [address] [place] [address] [facility] Member Subscriber Plan / Payer (Ef fective 2007-Present) Name:Charlie Hawkins Relation to Subscriber:Self Name:Charlie Hawkins Payer ID:[id number] Group ID:Not on file Type:OTHER GOVERNMENT Address: ATTN [facility] [address] [place] [address] Care Teams Forest Fire Prevention Manager Relationship Specialty Start Date End Date Azucena Nixon MD PCP - General Internal Medicine 01/05/20
--- OUTSIDE RECORDS SUMMARY | 2024-11-16 00:45 | XMS_ITS | Encounter Summary ---
Author Organization [facility] Address [address] [place] [address] Care Team Providers Care Upstairs Maid Name Role Phone Jose Brown MD Primary Care Provider [phone] Encounter Details Date Type Department Care Team (Late st Contact Info) Description 02/04/2005 Emergency [facility] Mulugeta Seaman MD [address] [place] [address] [place] [address] PAINFUL RESPIRATION (Primary Dx) Social History Tobacco Use Types Packs/Day Years Used Date Smoking Tobacco: Never Assessed Sex and Gender Information Value Date Recorded Sex Assigned at Not on file Legal Sex Male 3:21 AM TOUR ESCORT Gender Identity Not on file Sexual Orientation Not on file documented as of this encounter Plan of Treatment Not on file documented as of this encounter Procedures Procedure Name Priority Date/Time Associated Diagnosis Comments CBC WITH DIFFERENTIAL Routine 02/04/2005 9:35 AM TOUR ESCORT CBC WITH DIFFERENTIAL Routine 02/04/2005 9:35 AM TOUR ESCORT documented in this encounter Results * CBC WITH DIFFERENTIAL (02/04/2005 9:35 AM TOUR ESCORT) NEUTROPHILS 64 45 - 70 % INTERFAC E SYSTEM LYMPHOCYTES 26 16 - 45 % INTERFAC E SYSTEM MONOCYTES 9 3 - 13 % INTERFACE SYSTEM EOSINOPHILS 2 0 - 7 % INTERFAC E SYSTEM BASOPHILS 0 0 - 2 % INTERFACE SYSTEM NEUTROPHIL ABSOLUTE 5.66 1.90 - 7.00 K/uL INTERFACE SYSTEM LYMPHOCYTE ABSOLUTE 2.28 0.70 - 4.50 K/uL INTERFACE SYSTEM MONOCYTE ABSOLUTE 0.77 0.10 - 1.30 K/uL INTERFACE SYSTEM EOSINOPHIL ABSOLUTE 0.16 0.00 - 0.70 K/uL INTERFACE SYSTEM BASOPHILS ABSOLUTE 0.04 0.00 - 0.20 K/uL INTERFACE SYSTEM 02/04/2005 9:35 AM TOUR ESCORT Mulugeta Seaman MD HEMATOLOGY ORDERABLES Final Result Performing Organization Address City/[facility] de Phone Number INTERFACE SYSTEM Refer to clinic/hospital department * CBC WITH DIFFERENTIAL (02/04/2005 9:35 AM TOUR ESCORT) WBC 8.9 4.0 - 9.8 K/uL INTERFACE SYSTEM RBC 4.88 4.50 - 5.40 M/uL INTERFACE SYSTEM HEMOGLOBIN 14.3 13.6 - 16.5 g/dL INTERFACE SYSTEM HEMATOCRIT 41.7 40.0 - 48.0 % INTERFACE SYSTEM MCV 85.5 82.0 - 99.0 fL INTERFACE SYSTEM MCH 29.3 27.2 - 32.6 pg INTERFACE SYSTEM MCHC 34.3 31.5 - 35.5 % INTERFACE SYSTEM RDW 12.8 11.5 - 14.5 % INTERFACE SYSTEM RDW-STDEV 40.3 37.1 - 48.7 fL INTERFACE SYSTEM PLATELETS 255 140 - 350 K/uL INTERFACE SYSTEM MPV 9.9 9.3 - 12.4 fL INTERFACE SYSTEM 02/04/2005 9:35 AM TOUR ESCORT Mulugeta Seaman MD HEMATOLOGY ORDERABLES Final Result Performing Organization Address [facility] Phone Number INTERFACE SYSTEM Refer to clinic/hospital department documented in this encounter Visit Diagnoses Diagnosis Painful respiration- Primary documented in this encounter Additional Health Concerns Infection Onset Date Last Indicated Resolved Time R/O COVID-19 10/22/2020 10/22/2020 10/22/2020 8:22 PM CDT COVID-19 10/22/2020 10/22/2020 11/11/2020 1:17 AM CDT documented as of this encounter Care Teams Upstairs Maid Relationship Specialty Start Date End Date Jose Brown MD [address] [phone] PCP - General Family Practice 11/11/21 documented as of this encounter
--- OUTSIDE RECORDS SUMMARY | 2024-11-16 00:45 | XMS_ITS | Encounter Summary ---
Author Organization [facility] Address 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 [address] [place] [phone] PCP - General Family Practice 11/11/21 documented as of this encounter
--- OUTSIDE RECORDS SUMMARY | 2024-11-16 00:45 | XMS_ITS | Encounter Summary ---
Author Organization [facility] Address [address] [place] [address] Care Team Providers Care High Worker Name Role Phone Unavailable Primary Care Provider Unavailabl e Encounter Details Date Type Department Care Team (Late st Contact Info) Description 11/01/2018 Orders Only [facility] Radiology [address] [facility] [address] System, Provider Not In, [address] [facility] [place] [address] Social History Tobacco Use Types Packs/Day Years [...] Priority Date/Time Associated Diagnosis Comments OUTSIDE IMAGES 11/01/2018 12:16 PM CDT documented in this encounter Results * Outside Images (11/01/2018 12:16 PM CDT) Anatomical Region Laterality Modality N/A Radiographic Camila ging 11/01/2018 12:1 6 PM CDT Narrative 11/01/2018 12:16 PM CDT Image aquired from external facility for exam: RT HIP Procedure Note System, Provider Not In, - 12/07/2018 Image aquired from external facility for exam: RT HIP us Provider Not In System MD [facility] Final Result documented in this encounter Visit Diagnoses Not on filedocumented in this encounter
[2024-11-16 01:20] VITALS: BP 157/88; PULSE 96; O2SAT 98
[2024-11-16 01:24] LABS: Hematocrit 50.5 % (37-53); Hemoglobin 16.80 g/dL (11.27-16.99); Mean Corpuscular HGB Conc 33.3 g/dL (30-55); Mean Corpuscular Hemoglobin 29.1 pg (27-33); Mean Corpuscular Volume 87.4 fl (82-101); Nucleated Red Blood Cells % 0 %; Platelet Count 276 10^3/cmm (157-399); Red Blood Count 5.78 10^6/uL (3.85-5.65); White Blood Count 12.83 10^3/uL (3.29-11.43)
[2024-11-16 01:26] LABS: Glucose Urine UA Negative (Normal); Nitrate Urine Negative (Negative); Specific Gravity, Urine 1.013 (1.005-1.030)
[2024-11-16 01:28] LABS: Add Urine Microscopic? YES
[2024-11-16 01:40] LABS: Alanine Aminotransferase 30 U/L (0-41); Albumin Level 3.8 g/dL (3.5-5.2); Alkaline Phosphatase 99 U/L (40-130); Anion Gap 11.5 (5-19); Aspartate Amino Transferase 27 U/L (0-40); Blood Urea Nitrogen 7 mg/dL (6-20); Calcium 10.4 mg/dL (8.5-10.5); Carbon Dioxide 26 mmol/L (22-29); Chloride 105 mmol/L (98-107); Creatinine Clr Calc Pharmacy 126.0027; Globulin 3.5 g/dL (1.3-4.6); Glucose 102 mg/dL (65-115); Osmolality Calculated 284 mOsm/kg (285-295); Potassium 4.5 mmol/L (3.5-5.1); Sodium 138 mmol/L (136-145); Total Protein 7.3 g/dL (6.6-8.7)
[2024-11-16 01:50] VITALS: BP 139/89; PULSE 70; O2SAT 97
[2024-11-16 01:56] VITALS: BP 139/89; PULSE 70; O2SAT 96
== END 2024-11-16 01:59 | disposition home or self-care (01) ==
PROVIDERS: Emergency Provider Family Medicine
DX: L03.113 Cellulitis of right upper limb (principal); Z87.891 Personal history of nicotine dependence
CPT/HCPCS: 36415; 71045; 73080; 80053; 81001; 85025; 86140; 99284

== ENCOUNTER 2024-12-04 23:23 | Emergency (ER) | payer OTHER, SELFPAY ==
--- OUTSIDE RECORDS SUMMARY | 2015-12-04 11:46 | XMS_ITS | Continuity of Care Document ---
Author Organization [facility] Address [address] [facility] [address] [place] [address] Phone Care Team Providers Care Consultant Internship Name Role Phone Jose Francisco Murillo MD Unavailable Unavailable Allergies, Adverse Reactions, Alerts Substance Reaction Status Criticality No Known Allergies Active No Inform ation Medications Medication Instructions Dosage Effective Dates (start - stop) Status Comments Medrol (Reji) 4 mg tablets in a dose pack take by Oral route as pakage directs Not Available - Active [place] 7.5 mg-325 mg tablet take 1 - 2 Tablet by oral route every 4 - 6 hours as needed for pain 1-2 Tablet - Active ranitidine 150 mg capsule - Active loratadine 10 mg disintegrating tablet - Active Procedures Procedure Date Asp/inject intermed joint/bursa w/o US g uidance Depo Medrol Methylprednisolone 40 MG inj Office/outpatient visit,[facility] 2015 Advance Directives Directive Yes / No Effective Date File Name No Information Encounters Encounter Description Practice Location Reason(s) For Visit Diagnoses Date Provider Providers Copied on Encounter [facility], [address] [place] [address], [id number], [phone] [facility] No Information 6 Chidi Felton. [address] [facility], [place] [address], [place], [place], [id number] , [place]. tel: [phone] Office/outpat ient visit,[facility], [address] [place] [address], [id number], tel:[phone] [facility] Left shoulder (chief complaint) Osteolysis of left shoulder 6 Chidi Felton. [address] [facility], [address], [place], [place], [id number] , [place]. tel: [phone] Referring Provider: Sunita Dorsey, [address] [place] [address], [place], [address]. tel:[phone] Family History Family Member Type Diagnosis Age At Onset Problem (finding) Family history of Cance r, unknown Problem (finding) Family history of congenital heart disease Problem (finding) Family history of hyper tension Problem (finding) Family history of strok e Problem (finding) Family history of Arthr itis Problem (finding) Family history of diabetes mellitus in first degree relative Payers Payer name Insurance type Covered libertarian ID Authoriza tion(s) [place] Part B MB [id number] Social History Type Description Quantity Date Captured [...]
--- OUTSIDE RECORDS SUMMARY | 2019-01-31 07:56 | XMS_ITS | Continuity of Care Document ---
Author Organization [facility] Address [address] [place] [address] Phone Care Team Providers Care Splitter Head Name Role Phone Dominik Caraballo MD Unavailable Unavailable Allergies, Adverse Reactions, Alerts Substance Reaction Status Criticality FLUOXETINE HCL Active No Informatio n Penicillins Active No Information codeine Active No Information BUPROPION HCL Active No Information Medications Medication Instructions Dosage Effective Dates (start - stop) Status Comments prazosin 2 mg capsule take 1 capsule by oral route every bedtime 2 MG - Active Vraylar 6 mg capsule take 1 capsule by oral route every day 6 MG - Active note dose increase chlorpromazine 100 mg tablet take 1 tablet by ORAL route every day at hs 100 MG - Active naproxen 500 mg tablet take 1 tablet by oral route 2 times every day with food 500 MG - Active Sudafed 12 Hour 120 mg tablet,extended release take 1 tablet by oral route every 12 hours 120 MG - Active [place] 10 mg-325 mg tablet take 1 tablet by oral route every 4 - 6 hours as needed for pain - Active Procedures Procedure Date OFFICE/OUTPATIENT VISIT, EST OFFICE/OUTPATIENT VISIT, EST OFFICE/OUTPATIENT VISIT, EST PSYTX PT&/FAM W/E&M 30 MIN PSYTX COMPLEX INTERACTIVE OFFICE/OUTPATIENT VISIT, EST Advance Directives Directive Yes / No Effective Date File Name No Information Encounters Encounter Description Practice Location Reason(s) For Visit Diagnoses Date Provider Providers Copied on Encounter [facility], [address] [place] [address], [id number], [place] tel:[phone] *[facility] No Information 9 Rashmi Lehman. [address] [place], [address], [place]. tel:[phone] OFFICE/OUTPA TIENT VISIT, [facility], [address] [place] [address], [address], [place] tel:[phone] *[facility] Post traumatic stress disorderNightma res associated with chronic post-traumatic stress disorderRecurre nt major depressive disorderBody mass index (BMI) 31.0-31.9, adultDietary counseling and surveillance Sep-3 9 Rashmi Lehman. [address] [place], [address], [place]. tel:[phone] OFFICE/OUTPA TIENT VISIT, [facility], [address] [place] [address], [address], [place] tel:[phone] *[facility] No Information 9 Rashmi Lehman. [address] [place], [address], [place]. tel:[phone] OFFICE/OUTPA TIENT VISIT, [facility], [address] [place] [address], [address], [place] tel:[phone] *[facility] No Information 9 Rashmi Lehman. [address] [place], [address], [place]. tel:[phone] OFFICE/OUTPA TIENT VISIT, [facility], [address] [place] [address], [address], [place] tel:[phone] *[facility] Urgent Care nasal congestion (chief complaint) Nicotine dependence, cigarettes, uncomplicated 6 No Information Family History Family Member Type Diagnosis Age At Onset Mother Problem (finding) Lupus erythematosus Father Problem (finding) PTSD Father Problem (finding) Cardiovascular disease Mother Problem (finding) malignant neop lasm of breast in first degree relative Mother Problem (finding) malignant neoplasm of l tera Father Problem (finding) Alive and well Mother Problem (finding) manic-depressive state Paternal grandfather Problem (finding) coronary arteriosclerosis (Cause Of ) Payers Payer name Insurance type Covered constitution party ID Authoriza tibren(s) No Information Social History Type Description Quantity Date Captured Comments Sex Male Smoking Status No Information Chief Complaint And Reason For Visit No Information Reason For Referral Reason For Referral No Information Plan Of Treatment Date Type Action Status Goal Tobacco cessation counseling completed Goal Dietary manageme nt education, guidance, and counseling completed Goal Dietary manageme nt education, guidance, and counseling completed Goal Dietary manageme nt education, guidance, and counseling completed Goal Dietary manageme nt education, guidance, and counseling completed Goal Tobacco cessation counseling completed Goal Dietary manageme nt education, guidance, and counseling completed Goal Dietary manageme nt education, guidance, and counseling completed Goal Tobacco cessation counseling completed Goal Dietary manageme nt education, guidance, and counseling completed Goal Tobacco cessation counseling completed Future Order: Lab Order COMPREHE NSIVE METABOLIC PANEL ([id number]), Ordered on: Ordered Future Order: Lab Order FREE T4 ([id number]), Ordered on: Ordered Future Order: Lab Order GLYCOHEM OGLOBIN (A1c) ([id number]), Ordered on: Ordered Future Order: Lab Order LIPID PA HALI ([id number]), Ordered on: Ordered Future Order: Lab Order THYROID STIMULATING HORMONE ([id number]), Ordered on: Ordered History Of Present Illness Encounter Date Complaint History Of Prese nt Illness nasal congestion Onset: 1 Week. The severity of the problem is moderate. The problem has worsened. Pertinent/initial symptoms include facial pressure, sinus congestion, sinus pain and sinus pressure. Symptoms are associated with tobacco use. Tobacco cessation was discussed. Aggravating factors include lying down. Denies relieving factors. Associated symptoms include cough, nasal drainage, nasal obstruction, postnasal drainage and sinus pressure. Additional information: c/o stomach hurting upper left. Functional Status Date Functional Assessmen t No Information Instructions Date Instruction Additional Infor mation Dietary management e ducation, guidance, and counseling Related to Body mass index (BMI) 31.0-31.9, adult Dietary management e ducation, guidance, and counseling Related to Dietary counseling and surveillance Dietary management e ducation, guidance, and counseling Related to Body mass index (BMI) 31.0-31.9, adult Dietary management e ducation, guidance, and counseling Related to Dietary counseling and surveillance Dietary management e ducation, guidance, and counseling Related to Body mass index (BMI) 30.0-30.9, adult Dietary management e ducation, guidance, and counseling Related to Dietary counseling and surveillance Increase fluids and rest. Relate d to Acute maxillary sinusitis Stop Zantac and star t Prilosec. FU with PCP. Related to Gastritis Doxycycline, Prednis one, and ProAir inhaler. Related to Bronchitis Stop Claritin and start Zyrtec. Related to Other seasonal allergic rhinitis Giving encouragement to exercise Related to Body mass index (BMI) 33.0-33.9, adult Dietary management e ducation, guidance, and counseling Related to Body mass index (BMI) 33.0-33.9, adult Assessments Type Assessment Date No Information Patient Care Teams Name Effective Dates (start - stop) Status Members No Information
[2024-12-04 23:24] VITALS: BP 119/80; PULSE 44; RESP 18; TEMP 36.6; O2SAT 99; BMI 28.8
--- NOTE | 2024-12-04 23:24 | XRR_ITS ---
PROCEDURE INFORMATION: Exam: XR Chest Exam date and time: 12/04/2024 11:33 PM Age: 39 years old Clinical indication: Chest pressure and sternal or substernal pain; Substernal chest pain, patient states he has history of heart valve issues; Additional info: Cp TECHNIQUE: Imaging protocol: Radiologic exam of the chest. Views: 1 view. COMPARISON: CR (CHEST, ) 11/16/2024 1:11 AM FINDINGS: Lungs: Unremarkable. No consolidation. Pleural spaces: Unremarkable. No pleural effusion. No pneumothorax. Heart/Mediastinum: Unremarkable. No cardiomegaly. Bones/joints: Unremarkable. XR/XR chest 1V portable [id number] IMPRESSION: No acute findings.
--- NOTE | 2024-12-04 23:31 | ED_ITS ---
HPI - Chest Pain 2 General: Chief Complaint: Chest Pain Stated Complaint: cp Time Seen by Provider: 12/04/24 23:23 Source: patient, EMS and police Mode of arrival: ambulatory Limitations: no limitations History of Present Illness: 31-year-old male who is well-known to [facility] ER has been seen here multiple times for chest pain. Patient is currently in snf states has been having a sharp chest pains been going on for 4 days states its intermittent in nature. Patient states he currently has pain he rates as a 3 out of 10. He denies any radiation denies any shortness of breath denies any vomiting. Associated symptoms: Deny dyspnea or nausea Related Data Home Medications ?Medication ?Instructions ?Recorded ?Confirmed hydrocodone 7.5 mg-acetaminophen 1 tab PO QID PRN Pain 10/31/22 03/23/23 325 mg tablet cyclobenzaprine 10 mg tablet 10 mg PO Q8H 11/12/2212/06 lisinopril 20 mg tablet 20 mg PO DAILY 11/12/2212/06 Previous Rx's ?Medication ?Instructions ?Recorded diltiazem HCl 60 mg 60 mg PO BID #60 caps capsule,extended release 12 hr nitroglycerin 0.4 mg sublingual See Rx Instructions .R oute 02/24/23 tablet .COMPLEX #25 tabs cinacalcet 30 mg tablet 30 mg PO BID 90 days #180 ta bs 03/25/23 buspirone 10 mg tablet 10 mg PO TID #90 tabs Allergies Allergy/AdvReac Type Severity Reaction Status Date / Time baclofen Allergy Unknown Unknown Verified 06/07/24 03:25 bupropion Allergy Unknown Unknown Verified 06/07/24 03:25 fluoxetine Allergy Unknown Unknown Verified 06/07/24 03:25 unclassified drug Allergy Unknown Unknown Uncoded 06/07/24 03:25 Review of Systems 2 Card: Reports: chest pain Resp: Denies: dyspnea GI: Denies: nausea Musc: Denies: neck pain PFSH ED 2 PFSH: Medical History Lumbar disc disease with radiculopathy Social History Smoking and tobacco/nicotine status: former use of tobacco/nicotine Quit status (tobacco/nicotine): has quit using Household members: significant other Physical Exam 2 Const: COMMON NORMALS: no acute distress, patient oriented x3 and healthy appearing HENMT: COMMON NORMALS: normocephalic and atraumatic HEAD & SCALP: n ormocephalic and atraumatic Eye: COMMON NORMALS: conjunctivae normal CONJUNCTIVA: Yes conjunctivae normal Neck/C-Spine: COMMON NORMALS: full ROM and supple Chest: COMMONS NORMALS: normal inspection of the chest Resp: COMMON NORMALS: normal respiratory effort, No retractions, No use of accessory muscles and clear to auscultation bilaterally AUSCULTATION: clear to auscultation bilaterally Cardio: COMMON NORMALS: regular rate, regular rhythm and No murmurs present (Cardio) RATE: regular rate RHYTHM: regular rhythm Extremity: COMMON NORMALS: normal to inspection and full ROM Neuro: COMMON NORMALS: patient oriented x3, moves all extremities and no focal motor deficits Psych: COMMON NORMALS: mental status grossly normal, Normal thought process present and cooperative THOUGHT PROCESS: Normal thought process present Skin: COMMON NORMALS: no rashes or lesions noted and no wounds GENERAL SKIN EXAM: no rashes or lesions noted Course 2 Vital Signs: Vital signs: Vital Signs Temperature 97.9 F 12/04/24 23:24 Pulse Rate 65 12/05/24 00:17 Respiratory Rate 15 12/05/24 00:17 Blood Pressure 124/91 12/05/24 00:17 Pulse Oximetry 97 12/05/24 00:17 Oxygen Delivery Me thod Room Air 12/05/24 00:17 MDM - Chest Pain Medical Decision Making Patient presents here with chest pain is atypical in nature it has been a sharp pain intermittent for 4 days. His blood work including initial troponin is negative chest x-ray shows no acute abnormality. I did go over the lab work and imaging with patient he is stable for discharge he is to follow-up with PCP and return if worsening he understands agrees to plan. Differential Diagnosis Likely acute massive pulmonary embolism Medical Records I reviewed the patient's medical records. Lab Data I reviewed the patient's lab results. 12/04/24 23:59 12/04/24 23:59 Radiology Impressions Chest X-Ray 12/04/24 23:24 IMPRESSION: No acute findings. Laboratory Results WBC 10.67 10^3/uL (3.29-11.43) 12/04/24 23:59 RBC 6.07 10^6/uL (3.85-5.65) H 12/04/24 23:59 Hgb 17.80 g/dL (11.27-16.99) H 12/04/24 23:59 Hct 54.0 % (37-53) H 12/04/24 23:59 MCV 89.0 fl (82-101) 12/04/24 23:59 MCH 29.3 pg (27-33) 12/04/24 23:59 MCHC 33.0 g/dL (30-55) 12/04/24 23:59 RDW 13.2 % (12.1-15.1) 12/04/24 23:59 Plt Count 258 10^3/cmm (157-399) 12/04/24 23:59 MPV 9.4 fL (7.4-10.4) 12/04/24 23:59 Neut % (Auto) 56.8 % 12/04/24 23:59 Lymph % (Auto) 30.9 % 12/04/24 23:59 [place] % (Auto) 7.5 % 12/04/24 23:59 Eos % (Auto) 3.7 % 12/04/24 23:59 Baso % (Auto) 0.8 % 12/04/24 23:59 Neut # (Auto) 6.05 10^3/uL (1.8-7.7) 12/04/24 23:59 Lymph # (Auto) 3.3 10^3/uL (0.8-4.8) 12/04/24 23:59 [place] # (Auto) 0.8 10^3/uL (0.2-0.9) 12/04/24 23:59 Eos # (Auto) 0.4 10^3/uL (0.0-0.8) 12/04/24 23:59 Baso # (Auto) 0.1 10^3/uL (0.0-0.1) 12/04/24 23:59 Nucleated RBC % (auto) 0 % 12/04/24 23:59 Nucleated RBCs # 0.0 /100WBC 12/04/24 23:59 Sodium 138 mmol/L (136-145) 12/04/24 23:59 Potassium 4.3 mmol/L (3.5-5.1) 12/04/24 23:59 Chloride 104 mmol/L (98-107) 12/04/24 23:59 Carbon Dioxide 23 mmol/L (22-29) 12/04/24 23:59 Anion Gap 15.3 (5-19) 12/04/24 23:59 BUN 10 mg/dL (6-20) 12/04/24 23:59 Creatinine 1.1 mg/dL (0.7-1.2) 12/04/24 23:59 GFR Calculation 74.9 mL/min (90-130) L 12/04/24 23:59 Glucose 96 mg/dL (65-115) 12/04/24 23:59 Calculated Osmolality 285 mOsm/kg (285-295) 12/04/24 23:59 Calcium 10.5 mg/dL (8.5-10.5) 12/04/24 23:59 Total Bilirubin 0.5 mg/dL (0.15-1.2) 12/04/24 23:59 AST 22 U/L (0-40) 12/04/24 23:59 ALT 40 U/L (0-41) 12/04/24 23:59 Alkaline Phosphatase 95 U/L (40-130) 12/04/24 23:59 Troponin T Baseline < 6 ng/L (0-15) 12/04/24 23:59 NT-Pro-B Natriuret Pep < 36 pg/mL (0-125) 12/04/24 23:59 Total Protein 7.8 g/dL (6.6-8.7) 12/04/24 23:59 Albumin 4.3 g/dL (3.5-5.2) 12/04/24 23:59 Globulin 3.5 g/dL (1.3-4.6) 12/04/24 23:59 All radiology interpretation(s) finalized by discharge EKG Data EKG 1: I personally reviewed and interpreted this EKG as follows: EKG interpretation date: 12/04/24 EKG interpretation time: 23:31 Interpretation: sinus micheal hr [address] elevation qrs 107 qtc 378 Clincial Decision Support The following clinical decision support tools were used to aid in care of the patient HEART Score -> History: Slightly Suspicous, EKG: Normal, Age: Less than 45 yrs, Risk Factors: No Risk Factors Known, Troponin: Baseline Trop <16 ng/L. Resulting HEART Score: 0. Discharge Plan Discharge Patient Disposition: Home Clinical Impression: Chest pain Condition: Stable Prescriptions: No Action cyclobenzaprine 10 mg tablet 10 mg PO Q8H lisinopril 20 mg tablet 20 mg PO DAILY diltiazem HCl 60 mg capsule,extended release 12 hr 60 mg PO BID Qty: 60 1RF Rx Instructions: monitor heart rate nitroglycerin 0.4 mg tablet, sublingual See Rx Instructions .ROUTE .COMPLEX Qty: 25 0RF Dose Instruction: TAKE 1 TABLET SUBLINGUALLY EVERY 5 MINUTES NEEDED FOR CHEST PAIN DO NOT EXCEED 3 DOSES PER EPISODE Rx Instructions: TAKE 1 TABLET SUBLINGUALLY EVERY 5 MINUTES NEEDED FOR CHEST PAIN DO NOT EXCEED 3 DOSES PER EPISODE cinacalcet 30 mg tablet 30 mg PO BID 90 Days Qty: 180 0RF buspirone 10 mg tablet 10 mg PO TID Qty: 90 0RF hydrocodone-acetaminophen 7.5-325 mg tablet 1 tab PO QID PRN (Reason: Pain) Discharge Orders: Discharge ED (Routine); Ordered 12/05/24 Ordered By: Carina De Leon Discharge Diet: Advance as tolerated Discharge Activity: Resume usual activity Patient Instructions: Chest Pain (ED) Print Language: Botswanan Coding Level of Care Code ED Health And Wellness Instructor for Juan Jose Lima
--- OUTSIDE RECORDS SUMMARY | 2024-12-04 23:31 | XMS_ITS | Clinical Summary ---
Author Organization [facility] Address [address] [place] [address] Care Team Providers Care Nursing Tech Name Role Phone Unavailable Primary Care Provider [...]
--- OUTSIDE RECORDS SUMMARY | 2024-12-04 23:31 | XMS_ITS | Clinical Summary ---
Author Organization [facility] er Address [address] [place] [address] Care Team Providers Care Cable Installer Repairer Name Role Phone Azucena Nixon MD Primary [...] PM CDT): Follows with psychiatry at the [facility]. Reports his symptoms are well-controlled on his [...] xray of the lumbar spine. He requested [place]. 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
--- OUTSIDE RECORDS SUMMARY | 2024-12-04 23:31 | XMS_ITS | Clinical Summary ---
Author Organization [facility] Address [address] [place] [address] Phone Care Team Providers Care Information Analyst Name Role Phone System, Provider Not In [...] CAD (coronary artery disease) 11/18/2023 History of ID (myocardial infarction) 11/18/2023 Scrotal abscess 11/17/2023 Benign [...] xray of the lumbar spine. He requested [place]. I told him that I would not [...] drink = 0.6 oz pur e alcohol) [facility] Utilities Answer Date Recorded In the past 12 months has [facility] [employer], gas, oil, or water Telly threatened to shut off services in your [...] any time in the past 12 m [facility], were you homeless or living in a [place] health care facility (including now)? Yes 11/17/2023 Sex and Gender [...] SCDM series) 2013 COVID-19 Vaccine (1 - 2023- season) 2024 Influenza Vaccine (#1) 2024 , 05/25/2022, 12/10/2017, Additional history exists Creatinine Level 11/16/2024 11/17/2023, 04/2023, 11/08/2023, Additional history exists Potassium Level 11/16/2024 11/17/2023, 04/2023, 11/08/2023, Additional history exists DTaP,Tdap,and Td Vaccines (9 - Td or Tdap) 12/11/2027 12/10/2017, 12/14/2011, 09/14/2005, Additional history exists Zoster Vaccines (1 of 2) 2036 RSV Vaccines (1 - 1-dose 75+ series) 2061 IPV Vaccines Completed 09/14/2005, 08/1993, 11/22/1991, Additional history exists HIB Vaccines Aged Out No longer eligi [...] Comprehensive Metabolic Panel (11/17/2023 4:26 PM CDT) [facility] Signature Glucose 139(H) 70 - 100 mg/dL LAB CHEMISTRY METHOD 11/17/2023 4:58 PM CDT [facility] BUN 12 9 - 20 mg/dL LAB CHEMISTRY METHOD 11/17/2023 4:58 PM CDT [facility] Creatinine 1.32(H) 0.66 - 1.25 mg/dl LAB CHEMISTRY METHOD 11/17/2023 4:58 PM CDT [facility] BUN/Creatinine Ratio 9(L) 12 - 17 LAB CHEMISTRY METHOD 11/17/2023 4:58 PM CDT [facility] Sodium 140 135 - 145 mmol/L LAB CHEMISTRY METHOD 11/17/2023 4:58 PM CDT [facility] Potassium 3.7 3.6 - 5.0 mmol/L LAB CHEMISTRY METHOD 11/17/2023 4:58 PM CDT [facility] Chloride 110 101 - 111 mmol/L LAB CHEMISTRY METHOD 11/17/2023 4:58 PM CDT [facility] Total Carbon Dioxide 30 22 - 30 mmol/L LAB CHEMISTRY METHOD 11/17/2023 4:58 PM CDT [facility] Anion Gap 4(L) 9 - 17 mmol/L LAB CHEMISTRY METHOD 11/17/2023 4:58 PM CDT [facility] Calcium 11.1(H) 8.2 - 10.2 mg/dL LAB CHEMISTRY METHOD 11/17/2023 4:58 PM CDT [facility] Total Protein, Serum 7.3 5.6 - 8.5 g/dL LAB CHEMISTRY METHOD 11/17/2023 4:58 PM CDT [facility] Albumin 3.2(L) 3.5 - 5.2 g/dL LAB CHEMISTRY METHOD 11/17/2023 4:58 PM CDT [facility] GLOBULIN 4.1(H) 2.1 - 3.8 g/dL LAB CHEMISTRY METHOD 11/17/2023 4:58 PM CDT [facility] A/G Ratio 0.8(L) 1.4 - 1.7 LAB CHEMISTRY METHOD 11/17/2023 4:58 PM CDT [facility] Bilirubin, Total 0.5 0.1 - 1.3 mg/dL LAB CHEMISTRY METHOD 11/17/2023 4:58 PM CDT [facility] Alkaline Phosphatase 79 45 - [...] Final Res ult [facility] [address] [address] from Last 3 Months or Most Recently Relevant to Health Maintenance Insurance [facility] [employer] Advance Directives For more information, please contact: [phone] (7:30 AM - 5PM [facility], 7 days a week) * Full Code (Latest Code Status on File) Date Activated Date Inactivated Comments 11/17/2023 8:03 PM 11/18/2023 5:15 AM Care Teams Information Analyst Relationship Specialty Start Date End Date System, Provider Not In, DO [address] [phone] PCP - General 11/17/23
--- OUTSIDE RECORDS SUMMARY | 2024-12-04 23:32 | XMS_ITS | Encounter Summary ---
Author Organization [employer] Address 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 Gender Identity Not on file Sexual Orientation Not on file documented as of this encounter Plan of Treatment Not on file documented as of this encounter Procedures Procedure Name Priority Date/Time Associated Diagnosis Comments CBC WITH DIFFERENTIAL Routine 02/04/2005 9:35 AM DUST CONTROL ENGINEER CBC WITH DIFFERENTIAL Routine 02/04/2005 9:35 AM DUST CONTROL ENGINEER documented in this encounter Results * CBC WITH DIFFERENTIAL (02/04/2005 9:35 AM DUST CONTROL ENGINEER) NEUTROPHILS 64 45 - 70 % INTERFAC [...] 0.20 K/uL INTERFACE SYSTEM 02/04/2005 9:35 AM DUST CONTROL ENGINEER Mulugeta Seaman MD HEMATOLOGY ORDERABLES Final Result Performing Organization Address City/[facility]/[place] [facility] Phone Number INTERFACE SYSTEM Refer to clinic/hospital department * CBC WITH DIFFERENTIAL (02/04/2005 9:35 AM DUST CONTROL ENGINEER) WBC 8.9 4.0 - 9.8 K/uL INTERFACE [...] 12.4 fL INTERFACE SYSTEM 02/04/2005 9:35 AM DUST CONTROL ENGINEER Mulugeta Seaman MD HEMATOLOGY ORDERABLES Final Result Performing Organization Address [facility] Phone Number INTERFACE SYSTEM Refer to clinic/hospital department documented in this encounter Visit Diagnoses Diagnosis Painful respiration- Primary documented in this encounter Additional Health Concerns Infection Onset Date Last Indicated Resolved Time R/O COVID-19 10/22/2020 10/22/2020 10/22/2020 8:22 PM CDT COVID-19 10/22/2020 10/22/2020 11/11/2020 1:17 AM CDT documented as of this encounter Care Teams Grommet Man Relationship Specialty Start Date End Date Jose Brown MD [address] [phone] PCP - General Family Practice 11/11/21 documented as of this encounter
--- OUTSIDE RECORDS SUMMARY | 2024-12-04 23:32 | XMS_ITS | Encounter Summary ---
Author Organization [facility] Address [address] [place] [address] Care Team Providers Care Escrow Manager Name Role Phone Unavailable Primary Care Provider Unavailabl e Encounter Details Date Type Department Care Team (Late st Contact Info) Description 08/16/2017 Orders Only [facility] Radiology [address] [facility] [place] [address] System, Provider Not In, [address] [facility] [place] [address] Social History Tobacco Use Types Packs/Day Years [...] Region Laterality Modality N/A Radiographic Camila ging 08/16/2017 10:3 6 AM CDT Narrative [...]
--- OUTSIDE RECORDS SUMMARY | 2024-12-04 23:32 | XMS_ITS | Clinical Summary ---
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 Gender Identity Not on file Sexual Orientation [...] 3-dose SCD M series) 2013 [place] Preventative Visit/Annual Wellness Visit 03/15/2024 07/08/2022, 10/27/2021 INFLUENZA VACCINE (#1) 2024 , 05/25/2022, 08/27/2020, Additional history exists COVID-19 Vaccine ( - 2024-2 6 season) 2024 05/25/2022 DTAP/TDAP/TD VACCINES (9 - T d or Tdap) 12/11/2027 12/10/2017, 12/14/2011, 09/14/2005, Additional history exists HEPATITIS B VACCINES Completed 03/20/2006, 10/12/2005, 09/14/2005, Additional history exists Insurance [facility] OPEN [facility] [employer] Care Teams Director Of Financial Reporting Relationship Specialty Start Date End Date Jose Brown MD [address] [phone] PCP - General Family Practice 11/11/21
--- OUTSIDE RECORDS SUMMARY | 2024-12-04 23:32 | XMS_ITS | Encounter Summary ---
Author Organization [facility] Address [address] [place] [address] Care Team Providers Care Biometrics Consultant Name Role Phone Unavailable Primary Care Provider Unavailabl e Encounter Details Date Type Department Care Team (Late st Contact Info) Description 11/01/2018 Orders Only [facility] Radiology [address] [facility] [place] [address] System, Provider Not In, [address] [place] [address] Social History Tobacco Use Types Packs/Day Years [...]
--- OUTSIDE RECORDS SUMMARY | 2024-12-04 23:32 | XMS_ITS | Encounter Summary ---
Author Organization [employer] Address 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
--- OUTSIDE RECORDS SUMMARY | 2024-12-04 23:32 | XMS_ITS | Encounter Summary ---
Author Organization [email or web address] Address [address] [place] [address] Care Team Providers Care Rv Mechanic Name Role Phone Jose Brown MD Primary Care Provider [phone] Encounter Details Date Type Department Care Team (Late st Contact Info) Description 02/04/2005 Outpatient Historical [facility] Support Services Cardiac 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
[2024-12-05 00:07] LABS: Hematocrit 54.0 % (37-53); Hemoglobin 17.80 g/dL (11.27-16.99); Mean Corpuscular HGB Conc 33.0 g/dL (30-55); Mean Corpuscular Hemoglobin 29.3 pg (27-33); Mean Corpuscular Volume 89.0 fl (82-101); Nucleated Red Blood Cells % 0 %; Platelet Count 258 10^3/cmm (157-399); Red Blood Count 6.07 10^6/uL (3.85-5.65); White Blood Count 10.67 10^3/uL (3.29-11.43)
[2024-12-05 00:17] VITALS: BP 124/91; PULSE 65; RESP 15; O2SAT 97
[2024-12-05 00:26] LABS: Troponin(5th) Baseline < 6 ng/L (0-15)
[2024-12-05 00:35] LABS: Alanine Aminotransferase 40 U/L (0-41); Albumin Level 4.3 g/dL (3.5-5.2); Alkaline Phosphatase 95 U/L (40-130); Anion Gap 15.3 (5-19); Aspartate Amino Transferase 22 U/L (0-40); Blood Urea Nitrogen 10 mg/dL (6-20); Calcium 10.5 mg/dL (8.5-10.5); Carbon Dioxide 23 mmol/L (22-29); Chloride 104 mmol/L (98-107); Creatinine Clr Calc Pharmacy 97.2518; Globulin 3.5 g/dL (1.3-4.6); Glucose 96 mg/dL (65-115); NT Pro B Type Natriuretic Pept < 36 pg/mL (0-125); Osmolality Calculated 285 mOsm/kg (285-295); Potassium 4.3 mmol/L (3.5-5.1); Sodium 138 mmol/L (136-145); Total Protein 7.8 g/dL (6.6-8.7)
[2024-12-05 01:11] VITALS: BP 128/64; PULSE 53; RESP 15; O2SAT 98
== END 2024-12-05 01:14 | disposition home or self-care (01) ==
PROVIDERS: Emergency Provider Emergency Medicine
DX: R07.9 Chest pain, unspecified (principal); Z87.891 Personal history of nicotine dependence
CPT/HCPCS: 71045; 80053; 83880; 84484; 85025; 96374; 99285; J1885